=== PATIENT | female | born 1955 | race Caucasian/White ===

== ENCOUNTER 2023-07-26 08:35 | Outpatient (REF) | payer MEDICARE, SELFPAY ==
--- NOTE | ~2023-07-26 | XR_ITS ---
EXAMINATION: XR KNEE, RIGHT CLINICAL INFORMATION: Pain in the right knee COMPARISON: None available. TECHNIQUE: Four views of the right knee. FINDINGS: There is narrowing of medial compartment of right knee joint with marginal spurring seen mostly medially. There is chondrocalcinosis seen. There is no joint effusion. Patellofemoral compartments revealed degenerative changes medially and laterally. XR/XR knee RT 3V IMPRESSION: CPPD arthropathy
== END 2023-07-26 08:36 | disposition home or self-care (01) ==
LOC: HO.HOSX 08:35
PROVIDERS: Visit Provider Orthopaedic Surgery
DX: M25.561 Pain in right knee (principal)
CPT/HCPCS: 73562; 99202

== ENCOUNTER 2023-07-26 08:40 | Outpatient (AMB) | payer MEDICARE, MEDICAID, SELFPAY ==
--- NOTE | 2023-07-26 08:41 | A.OFFVIS_ITS ---
Vital Signs 07/26/23 09:06 Height 5 ft 2 in Weight 252 lb BMI 46.1 Intake Visit Reasons: New Pt - Right Knee Pain Intake Note: Kiya is a 65 year old female who presents as a new patient with Right knee pain. Patient reports her pain has been going on for about 2 months and is a 10 on the 1-10 pain scale and is using gabapentin and tylenol for the the pain with no relief. She denies injury, injections, and surgery. The patient states that most of the pain is along the medial aspect of her knee. The patient does not recall any similar discomfort prior to 2 months ago. Allergies No Known Allergies Allergy (Verified 07/26/23 09:08) PFSH Surgical History (Updated 07/26/23 @ 09:13 by Sun Samuel CMA) Hx of lumpectomy Hx of cholecystectomy Hx of section Social History (Updated 07/26/23 @ 09:14 by Sun Samuel CMA) Patient Tobacco Use Status: Never used Tobacco 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al status: unemployed 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 Physical Exam Vital Signs: BMI result Body Mass Index 46.1 Const Other: Well-nourished well-developed very friendly female awake alert and oriented x3 in no acute distress Extrem Other: Bilateral lower extremity examination shows good capillary refill, no skin lesions noted, normal sensation light touch Right knee examination shows a minimal effusion, minimal crepitus with range of motion, tenderness along her medial joint line, positive Stevan's test, no instability Results Reviewed Results Reviewed: Standing full weight-bearing x-rays of the patient's right knee show mild joint space narrowing most significant in the medial compartment, no acute bony abnormalities Assessment & Plan Assessment & Plan (1) Right knee pain: Code(s): M25.561 - Pain in right knee Category: Medical Plan Ms. Fragoso presents with right knee pain due to early degenerative joint disease as well as possible medial meniscus tearing. I had a lengthy discussion with the patient regarding the treatment options. She wishes to hold off on an injection for now. I did give her a prescription to go to formal physical therapy. Activity modifications were also discussed at length with the patient. She will contact me prior to her follow-up appointment in 2 months should any questions or concerns arise. Feel free to call me at any time should questions regarding her orthopedic management arise. Thank you very much for asking me to see this very friendly patient. I spent 22 minutes in reviewing the patient's records and imaging studies, see ing the patient and documenting in the medical record. Orders: Orders PT Evaluation and Treatment Today M25.561 - Pain in right knee Coding Level of Care Code New Pt Level 2 (57514) Diagnoses Right knee pain M25.561
[2023-07-26 09:06] VITALS: BMI 46.1
== END 2023-07-26 09:30 | disposition home or self-care (01) ==
PROVIDERS: PCP Nurse Practitioner Family; Referring Provider Nurse Practitioner Family; Visit Provider Orthopaedic Surgery
DX: M25.561 Pain in right knee (principal)
CPT/HCPCS: 99202

== ENCOUNTER 2024-05-23 13:51 | Outpatient (AMB) | payer MEDICARE, SELFPAY ==
[2024-05-23 14:15] VITALS: BMI 46.1
--- NOTE | 2024-05-23 14:15 | A.OFFVIS_ITS ---
Vital Signs 05/23/24 14:15 Height 5 ft 2 in Weight 252 lb BMI 46.1 Intake Visit Reasons: right knee pain Intake Note: Kiya is a 68 year old female who presents with complaints of progressively worsening right knee pain. She describes her pain as sharp and severe in nature. The patient states that she was given a cortisone injection last year by another provider. She got minimal relief from that injection. She wishes to hold off on surgery for as long as possible. She has failed the last 3 months of conservative treatment which has consisted of anti-inflammatory medicines, Tylenol and topical creams. She denies any locking or giving way. At this point her right knee pain is interfering with her activities of daily living and her ability to sleep well through the night. Allergies No Known Allergies Allergy (Verified 05/23/24 14:22) Medication List - Last Reconciled 05/23/24 by Sanya Arias MD albuterol sulfate 90 mcg/actuation inhalation cetirizine 10 mg PO DAILY famotidine 20 mg PO DAILY fluticasone furoate-vilanterol 100-25 mcg/dose (Breo Ellipta) 1 ea inhalation DAILY fluticasone furoate-vilanterol 200-25 mcg/dose (Breo Ellipta) 1 inh inhalation DAILY gabapentin 300 mg PO TID hydrochlorothiazide 25 mg PO DAILY lorazepam 0.5 mg PO BEDTIME PRN losartan 100 mg PO DAILY magnesium oxide 250 mg PO DAILY nirmatrelvir-ritonavir 150-100 mg (Paxlovid) 2 ea PO BID omeprazole 40 mg PO DAILY trazodone 150 mg PO BEDTIME PFSH Surgical History (Updated 07/26/23 @ 09:13 by Sun Samuel CMA) Hx of lumpectomy Hx of cholecystectomy Hx of section Social History (Updated 07/26/23 @ 09:14 by Sun Samuel CMA) Patient Tobacco Use Status: Never used Tobacco 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al status: unemployed 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 Physical Exam Vital Signs: BMI result Body Mass Index 46.1 Const Other: Well-nourished well-developed very friendly female awake alert and oriented x3 in no acute distress Extrem Other: Bilateral lower extremity examination shows good capillary refill, no skin lesions noted, normal sensation light touch right knee examination shows a minimal effusion, palpable crepitus with range of motion, pain with range of motion, range of motion from -3 degrees to 115 degrees, no instability Results Reviewed Results Reviewed: x-rays of the patient's right knee taken previously show joint space narrowing, subchondral sclerosis, no acute bony abnormalities Assessment & Plan Assessment & Plan (1) Osteoarthritis of right knee: Code(s): M17.11 - Unilateral primary osteoarthritis, right knee Category: Medical Plan Ms. Fragoso Presents with progressively worsening right knee pain due to osteoarthritis. I had a lengthy discussion with the patient regarding the tr eatment options. She wishes to hold off on surgery for as long as possible. I agree with this plan. She has had cortisone injections in the past which gave her minimal relief. Thus, I will see whether or not her insurance company will cover a viscosupplementation injection such as Durolane. I will see her back once the injection is available. Feel free to call me at any time should questions regarding her orthopedic management arise. I spent 22 minutes in reviewing the patient's records and imaging studies, seeing the patient and documenting in the medical record. Coding Level of Care Code Est Pt Level 3 (52774) Complex EM visit Add On G2211 Diagnoses Osteoarthritis of right knee M17.11
--- OUTSIDE RECORDS SUMMARY | 2024-05-23 17:01 | XMS_ITS | Encounter Summary ---
Author Organization [facility] Address [address] [place] [address] Phone Care Team Providers Care Inventory Coordinator Name Role Phone Callie Lawson Primary Care Provider [phone] Encounter Details Date Type Department Care Team (Late st Contact Info) Description 05/04/2024 Office Communication [facility] [address] [place] [place] [address] [place] [address] [place] [address] Social History Tobacco Use Types Packs/Day Years Used Date Smoking Tobacco: Never Assessed Comments Unknown Sex and Gender Information Value Date Recorded Sex Assigned at Not on file Legal Sex Female 11:30 AM EST Gender Identity Not on file Sexual Orientation Not on file documented as of this encounter Plan of Treatment Upcoming Encounters Date Type Department Care Team (Late st Contact Info) Description 05/24/2024 10:00 AM EST Office Visit [facility] [address] [phone] Yash Meza MD [address] [place] [phone] documented as of this encounter Visit Diagnoses Not on filedocumented in this encounter Care Teams Inventory Coordinator Relationship Specialty Start Date End Date Callie Lawson FNP [address] [place] [address] PCP - General Nurse Practitioner 05/02/24 documented as of this encounter
--- OUTSIDE RECORDS SUMMARY | 2024-05-23 17:01 | XMS_ITS | Encounter Summary ---
Author Organization [employer] Address [address] [facility] 7t [place] [address] Care Team Providers Care Oil Sprayer Name Role Phone Callie Lawson Primary Care Provider [phone] Encounter Details Date Type Department Care Team ([facility] Contact Info) Description 10/19/2023 Telephone [facility] [address] [place] [phone] Callie Lawson FNP [address] [place] [address] Social History Tobacco Use Types Packs/Day Years Used Date Smoking Tobacco: Former Cigarettes Passive Smoke Exposure: Past Smokeless Tobacco: Never Alcohol Use Standard Drinks/Week Comments Never 0 (1 standard drink = 0.6 oz pur e alcohol) PHQ-2 Answer Date Recorded Patient Health Questionnaire-2 Score 0 07/21/2022 Alcohol Answer Date Recorded How often do you have a drink containing alcohol ? 0 09/23/2023 How many drinks containing a lcohol do you have on a typical day when you are drinking? 0 09/23/2023 How often do you have six or more drinks on one occasion? 0 09/23/2023 Housing Stability Answer Date Recorded What is your housing situation today? I have simba lebron 08/15/[address] you li ve. Do you have problems with any of the following? None of the above 08/15/2023 Food Insecurity Answer Date Recorded Within the past 12 months, y ou worried that your food would run out before you got money to buy more: Never True 08/15/2023 Within the past 12 months,th e food you bought just didn't last and you didn't have enough money to get more: Never True Transportation Answer Date Recorded In the past 12 months, has l ack of transportation kept you from medical appts, meetings, work or from getting things needed for daily living? No 08/15/2023 Intimate Partner Violence Answer Date R ecorded Within the last year, have y ou been afraid of your partner or ex-partner? 2 09/23/2023 Within the last year, have y ou been humiliated or emotionally abused in other ways by your partner or ex-partner? 2 Within the last year, have y ou been kicked, hit, slapped, or otherwise physically hurt by your partner or ex-partner? 2 09/23/2023 Within the last year, have y ou been raped or forced to have any kind of sexual activity by your partner or ex-partner? 2 09/23/2023 Utilities Answer Date Recorded In the past 12 months, has t he [employer], gas, oil or water company threatened to shut off services in your home? No 08/15/2023 Depression Answer Date Recorded Patient Health Questionnaire-2 Score 0 08/15/2023 Comments Unknown Sex and Gender Information Value Date Recorded Sex Assigned at Female 04/14/2022 2:09 PM EST Legal Sex Female 2:07 PM EST Gender Identity Female 04/14/2022 2:09 PM EST Sexual Orientation Straight 04/14/2022 2: 09 PM EST documented as of this encounter Miscellaneous Notes * Telephone Encounter - Radha Celaya - 10/20/2023 3:10 PM EDT Processed new order * Telephone Encounter - Rosalva Mccullough - 10/19/2023 2:00 PM EDT Please resubmit the order for physical therapy as it is expiring. Please use today's date. Fax # [phone] Order was for physical therapy for balance problems. documented in this encounter Plan of Treatment Not on file documented as of this encounter Visit Diagnoses Not on filedocumented in this encounter Care Teams Oil Sprayer Relationship Specialty Start Date End Date Callie Lawson FNP [address] [place] [phone] PCP - General Family Medicine 10/14/22 documented as of this encounter
--- OUTSIDE RECORDS SUMMARY | 2024-05-23 17:01 | XMS_ITS | Encounter Summary ---
Author Organization [employer] Address [address] [facility] 7t [place] [address] Care Team Providers Care Retail Sales Assistant Name Role Phone Callie Lawson Primary Care Provider [phone] Farrah Jackman Unavailable Encounter Details Date Type Department Care Team ([facility] Contact Info) Description 12/24/2022 Orders Only [facility] [address] [place] [phone] Callie Lawson FNP [address] [place] [address] Abnormal renal function finding (Primary Dx) Social History Tobacco Use Types Packs/Day Years Used Date Smoking Tobacco: Former Cigarettes Passive Smoke Exposure: Past Smokeless Tobacco: Never Alcohol Use Standard Drinks/Week Comments Never 0 (1 standard drink = 0.6 oz pur e alcohol) PHQ-2 Answer Date Recorded Patient Health Questionnaire-2 Score 0 07/21/2022 Depression Answer Date Recorded Patient Health Questionnaire-2 Score 0 07/21/2022 Comments Unknown Sex and Gender Information Value Date Recorded Sex Assigned at Female 04/14/2022 2:09 PM EST Legal Sex Female 2:07 PM EST Gender Identity Female 04/14/2022 2:09 PM EST Sexual Orientation Straight 04/14/2022 2: 09 PM EST documented as of this encounter Plan of Treatment Not on file documented as of this encounter Visit Diagnoses Diagnosis Abnormal renal function finding- Primary documented in this encounter Care Teams Retail Sales Assistant Relationship Specialty Start Date End Date Callie Lawson FNP [address] [place] [id number] PCP - General Family Medicine 10/14/22 Farrah Jackman [facility] [address] 01/27/23 10/11/23 documented as of this encounter
--- OUTSIDE RECORDS SUMMARY | 2024-05-23 17:01 | XMS_ITS | Encounter Summary ---
Author Organization [employer] Address [address] [facility] 7t [place] [address] Care Team Providers Care Outside Sales Consultant Name Role Phone Callie Lawson Primary Care Provider [phone] Farrah Jackman Unavailable Reason for Visit * Reason Comments Med Refill Encounter Details Date Type Department Care Team ([facility] st Contact Info) Description 01/08/[address] [place] [address] Callie Lawson FNP [address] [place] [address] Social History Tobacco Use Types Packs/Day Years Used Date Smoking Tobacco: Former Cigarettes Passive Smoke Exposure: Past Smokeless Tobacco: Never Alcohol Use Standard Drinks/Week Comments Never 0 (1 standard drink = 0.6 oz pur e alcohol) PHQ-2 Answer Date Recorded Patient Health Questionnaire-2 Score 0 07/21/2022 Housing Stability Answer Date Recorded What is your housing situation today? I have simba lebron 01/10/[address] you li ve. Do you have problems with any of the following? None of the above 01/10/2023 Food Insecurity Answer Date Recorded Within the past 12 months, y ou worried that your food would run out before you got money to buy more: Never True 01/10/2023 Within the past 12 months,th e food you bought just didn't last and you didn't have enough money to get more: Never True Transportation Answer Date Recorded In the past 12 months, has l ack of transportation kept you from medical appts, meetings, work or from getting things needed for daily living? No 01/10/2023 Utilities Answer Date Recorded In the past 12 months, has t he electric, gas, oil or water company threatened to shut off services in your home? No 01/10/2023 Depression Answer Date Recorded Patient Health Questionnaire-2 Score 0 07/21/2022 Comments Unknown Sex and Gender Information Value Date Recorded Sex Assigned at Female 04/14/2022 2:09 PM EST Legal Sex Female 2:07 PM EST Gender Identity Female 04/14/2022 2:09 PM EST Sexual Orientation Straight 04/14/2022 2: 09 PM EST documented as of this encounter Miscellaneous Notes * Telephone Encounter - Ajay Bonilla - 01/10/2023 8:47 AM EDT Pended. documented in this encounter Plan of Treatment Not on file documented as of this encounter Visit Diagnoses Not on filedocumented in this encounter Care Teams Outside Sales Consultant Relationship Specialty Start Date End Date Callie Lawson FNP [address] [place] [address] PCP - General Family Medicine 10/14/22 Farrah Jackman [address] [place] [address] 01/27/23 10/11/23 documented as of this encounter
--- OUTSIDE RECORDS SUMMARY | 2024-05-23 17:01 | XMS_ITS | Clinical Summary ---
Author Organization [facility] Address [address] [place] [address] Care Team Providers Care Dictating Machine Transcriber Name Role Phone Unknown Primary Care Provider [phone] Social History Tobacco Use Types Packs/Day Years Used Date Smoking Tobacco: Never Assessed Sex and Gender Information Value Date Recorded Sex Assigned at Not on file Gender Identity Not on file Sexual Orientation Not on file Plan of Treatment Health Maintenance Due Date Last Done Comments Hepatitis C Virus Screening 1955 DTaP/Tdap/Td Vaccines (1 - Tdap) 11/18/1974 Mammogram 1995 Colonoscopy 11/18/2000 Pneumococcal Vaccines 50+ (1 of 1 - PCV) 11/18/2005 Zoster (Shingles) Vaccine (1 of 2) 11/18/2005 DXA Bone Density (Females,Ag es 65 and older) 11/18/2020 Influenza Vaccine 10/27/2023 COVID-19 Vaccine ( - 2023-2 5 season) 2023 RSV Vaccine 60 years and old er and Patients (1 - 1-dose 75+ series) 11/18/2030 Hepatitis B Vaccines Aged Out No long er eligible based on patient's age to complete this topic Care Teams Dictating Machine Transcriber Relationship Specialty Start Date End Date Unknown Unknow Provider Address PCP - General 07/27/20
--- OUTSIDE RECORDS SUMMARY | 2024-05-23 17:01 | XMS_ITS | Encounter Summary ---
Author Organization [employer] Address [address] [facility] 7t [place] [address] Care Team Providers Care Otolaryngology Teacher Name Role Phone Callie Lawson Primary Care Provider [phone] Encounter Details Date Type Department Care Team ([facility] Contact Info) Description 11/07/[address] [facility] [address] [place] [phone] Callie Lawson FNP [address] [place] [address] Social History Tobacco Use Types Packs/Day Years [...] encounter Miscellaneous Notes * Telephone Encounter - Rowan Perez - 11/17/2023 12:10 PM EDT Apt rescheduled * Telephone Encounter - Alena Bonilla - 11/09/2023 3:41 PM EDT Called pt, no answer, lm to cb. * Telephone Encounter - Selina Mendez - 11/09/2023 9:10 AM EDT This was re routed to diabetes ed. For Katey Lyons as they do sched. For her and pt needed to have appt R/S. * Telephone Encounter - Selina Mendez - 11/07/2023 2:58 PM EDT Pt Cancelled and NDS to R?S . Please reach out to the pt @ #[phone] documented in this encounter Plan of Treatment Not on file documented as of this encounter Visit Diagnoses Not on filedocumented in this encounter Care Teams Otolaryngology Teacher Relationship Specialty Start Date End Date Callie Lawson FNP [address] [place] [id number] PCP - General Family Medicine 10/14/22 documented as of this encounter"
--- OUTSIDE RECORDS SUMMARY | 2024-05-23 17:01 | XMS_ITS | Clinical Summary ---
Author Organization [facility], Address [address] [place] [phone] Phone Care Team Providers Care Humane Agent Name Role Phone Callie Lawson JENNI Primary Care Provider [phone] Allergies Active Allergy Reactions Criticality Noted Date Comments Pollen Extract 06/22/2022 Medications Cetirizine HCl 10 MG capsule Take by oral route. Active famotidine (PEPCID) 20 MG tablet Take 20 mg by mouth in the morning. 08/15/2023 Active gabapentin (NEURONTIN) 300 MG capsule Take 1 capsule 3 times a day by oral route. Active hydroCHLOROthia zide 25 MG tablet 05/19/2022 Active LORazepam (ATIVAN) 0.5 MG tablet TAKE 1 TABLET(0.5 MG) BY MOUTH EVERY 8 HOURS NEEDED FOR ANXIETY 03/16/2024 Active losartan (COZAAR) 100 MG tablet Take 100 mg by mouth in the morning. 08/15/2023 Active Magnesium 250 MG tablet Take 250 mg by mouth in the morning. 01/12/2024 Active omeprazole (PriLOSEC) [address] capsule Take 40 mg by mouth 01/12/2024 Active predniSONE (DELTASONE) 20 MG tablet Active traZODone (DESYREL) 150 MG tablet TAKE 1 TABLET(150 MG) BY MOUTH AT BEDTIME 08/15/2023 Active Active Problems Problem Noted Date Diagnosed Date Stage 3b chronic kidney disease 05/23/2024 Hypertension 06/22/2022 Resolved Problems Problem Noted Date Diagnosed Date Resolved Date Exacerbation of moderate persistent asthma 03/05/2024 05/23/2024 Overview (05/23/2024): Established with Dr. Adair, Pulmonology last evaluated on 03/02/23 PFT 11/12/20: Moderate ventilatory defect, without obstruction. The vital capacity is reduced, probably due to a restrictive process. No significant response to bronchodilator. Moderate restrictive defect. The diffusing capacity is severely reduced, although not adjusted for hemoglobin. The finding of restriction, high flows relative to VC, with low DLCO is consistent with interstitial lung disease. Recommend check rest and walking O2 saturations as hypoxia can occur with DLCO this low. Recommend check hemoglobin to allow better estimation of predicted DLCO. CXR 02/19/23: IMPRESSION: Linear atelectasis versus scarring in the left lung apex. Osteoarthritis 01/20/2024 05/23/2024 Numbness of hand 12/29/2022 05/23/2024 Overview (05/23/2024): Neurology referral in place. Anxiety 06/22/2022 05/23/2024 Encounters Date Type Department Care Team Description 05/04/2024 Office Communication [facility] [address] [place] [address] Dawna Bedolla MA 05/02/2024 Documentation Only [facility] [address] [place] [address] Dawna Bedolla MA from Last 3 Months Immunizations Name Administration Dates Next Due Influenza (IM) Preservative Free 12/29/2023,01/26 Influenza, Quadrivalent, Pre servative Free 01/02/2020,01/05/2019,12/13/2017,02/02,12/04/2015,12/03/2014 Pneumococcal Polysaccharide 02/06/2021 Shingrix 05/24/2019,10/20/2018,03/30/2018 Tdap 03/05/2014 Zoster, Unspecified 05/24/2019 Social History Tobacco Use Types Packs/Day Years Used Date Smoking Tobacco: Never Assessed Comments Unknown Sex and Gender Information Value Date Recorded Sex Assigned at Not on file Legal Sex Female 11:30 AM EST Gender Identity Not on file Sexual Orientation Not on file Plan of Treatment Upcoming Encounters Date Type Department Care Team (Late st Contact Info) Description 05/24/2024 10:00 AM EST Office Visit [facility] [address] [place] [phone] Yash Meza MD [address] [place] [phone] Health Maintenance Due Date Last Done Comments Breast Cancer Screening 1955 Colorectal Cancer Screening: Annual FOBT 11/18/2004 Colorectal Cancer Screening: Colonoscopy 11/18/2004 Colorectal Cancer Screening: Sigmoidoscopy 11/18/2004 Pneumococcal Vaccine: 65+ Years (2 of 2 - PCV) 02/06/2022 02/06/2021 Influenza Vaccine Completed 12/29/2023, , 01/05/2019, Additional history exists Hepatitis B Vaccine Aged Out No longe r eligible based on patient's age to complete this topic Insurance [employer] MEDICAID [place] Care Teams Humane Agent Relationship Specialty Start Date End Date Callie Lawson FNP [address] [place] [address] PCP - General Nurse Practitioner 05/02/24
--- OUTSIDE RECORDS SUMMARY | 2024-05-23 17:01 | XMS_ITS | Encounter Summary ---
Author Organization [employer] Address [address] [place] [address] Care Team Providers Care [facility] Name Role Phone Callie Lawson JENNI Primary Care Provider Farrah Jackman Unavailable Encounter Details Date Type Department Care Team ([facility] Contact Info) Description 09/28/2023 Orders Only [facility] Information Management [address], [place] [id number] Provider, Not In System Social History Tobacco Use Types Packs/Day Years [...] on file documented as of this encounter Procedures Procedure Name Priority Date/Time Associated Diagnosis Comments CTA CHEST WITH CONTRAST; CT SCAN OF THE ABDOMEN AND PELVIS WITH IV Routine 09/21/2023 2:30 PM EDT documented in this encounter Results * CTA CHEST WITH CONTRAST; CT SCAN OF THE ABDOMEN AND PELVIS WITH IV (09/21/2023 2:30 PM EDT) Anatomical Region Laterality Modality Body, Pelvis, Abdomen Computed T omography us Not In System Provider IMG CT PROCEDURES Final R esult documented in this encounter Visit Diagnoses Not on filedocumented in this encounter Care Teams [facility] Relationship Specialty Start Date End Date Callie Lawson FNP [address] [place] [id number] PCP - General Family Medicine 10/14/22 Farrah Jackman [address] [place] [address] 01/27/23 10/11/23 documented as of this encounter
--- OUTSIDE RECORDS SUMMARY | 2024-05-23 17:01 | XMS_ITS | Data Portability ---
Author Organization [facility] [employer], [place] Address [address] [place] [address] [place] [address] Care Team Providers Care Band Nailer Name Role Phone MARK WINTERS Referring Provider Unavailable CORRY AMATO Primary Care Provider Assessment Encounter Date Assessment Date Assessment LastModified by Organization Details LastModified Time 02/02/2023 02/02/2023 IMPRESSION: tingling in her extremities starting ~November 2022, at the same time as pain she has had in her extremities since after COVID began to worsen, with feeling of weakness and increased pain in her arms and legs with using them. Neurological exam reveals mild imbalance with stepping out with tandem gait. Gait imbalance is not her chief complaints although her daughter notes that sometimes her mother feels imbalance and tells her about it. I will monitor at this time and we can address it at another time. Neurological exam does not reveal any other abnormalities and in particular does not strengthen the possibility of neuropathy, the chief diagnosis from the neurological point of view that could relate to her tingling. Small fiber neuropathy remains in the differential. There is tenderness at multiple joints including shoulders elbows and knees but not in hands or feet. There is also tenderness away from the joints in the calves which might be muscular but might relate to edema. I will get some blood work for causes of small fiber neuropathy and for muscle pain. I will not look for diabetes as I defer continued optimal monitoring for diabetes to primary care. She notes that she has been taking magnesium at the suggestion of primary care which may make the pain in her body a little softer. I will check magnesium in any case. At the end of the encounter, her daughter says that she is concerned about episodes where her mother seems to stare . I asked her to say her name loudly, ask if something is wrong, and grab her by the shoulder and gently shake her to see what happens then. She understands. FRANSISCO Fragoso February 02, 2023 Laboratories: Sedimentation rate, calcium, phosphorus, magnesium, red blood cell magnesium, ferritin TSH, free T4, PTH, vitamin D, Lyme titer, Sjogren's antibodies, vitamin B12 studies, vitamin B6, CRP Follow-up afterwards thiago Not available 02/02/2023 10:19:54 02/21/2023 02/21/2023 IMPRESSION: tingling in her extremities starting ~November 2022, at the same time as pain she has had in her extremities since after COVID began to worsen, with feeling of weakness and increased pain in her arms and legs with using them. Neurological exam February 02, 2023 reveals mild imbalance with stepping out with tandem gait. Gait imbalance is not her chief complaints although her daughter notes that sometimes her mother feels imbalance and tells her about it. I will monitor at this time and we can address it at another time. >>>>>>>>>>>>DATA REVIEWED LABORATORIES February 04, 2023 :magnesium red blood cell 4.2, magnesium 1.8, vitamin B12 409, folate 12.1, homocystine high 18.7, MMA 304, vitamin B6 3.1, low, Lyme titer negative, Sjogren's antibodies negative, sedimentation rate 41, high, CRP 0.9 high, vitamin D 29.2, PTH 79, high; TSH 2.45, free T4 1.29, ferritin 95, testosterone 15, phosphorus 2.2 low, vitamin B6 3.1 moderately low [3.4, 65.2], >>>>>>>>>>>>>> There are multiple mild to moderate abnormalities that could relate to tingling. Among them, mildly low vitamin B6 is the only one that would specifically correlate with the possibility of neuropathy. I defer to primary care for dietary adjustment or supplementation that might be indicated. Another may directly correlate with tingling including high PTH. As vitamin D is normal or at worst borderline mildly low, I do not suspect the high PTH relates to emerging vitamin D deficiency. I defer to primary care for parathyroid or other abnormality that might relate. Others have at most indirect correlation, as follows: Sedimentation rate and CRP are moderately high. I do not suspect any neurological focus of inflammation that would account for this. Therefore I defer to primary care on these abnormalities. Homocystine is mildly high. In the context of otherwise normal markers for B12 deficiency, I do not suspect B12 deficiency. I therefore did defer to primary care for any further assessment indicated from the cardiovascular perspective or other systemic perspective. >>>>>>>>>>>>>>>Julito [email or web address] Neurological exam has not revealed any abnormalities in particular to strengthen the possibility of neuropathy, the chief diagnosis from the neurological point of view that could relate to her tingling. As Neuropathy is only suggested by the mildly low B6, (and I continue to defer to primary care for continued optimal monitoring for diabetes), the only indication is to work with primary care on addressing that. I do not believe further diagnostic investigation such as skin biopsy we will nerve conduction studies is indicated at this point. February 02, 2023 There is tenderness at multiple joints including shoulders elbows and knees but not in hands or feet. There is also tenderness away from the joints in the calves which might be muscular but might relate to edema or the high estr/crp. February 02, 2023 At the end of the encounter, her daughter says that she is concerned about episodes where her mother seems to stare . I asked her to say her name loudly, ask if something is wrong, and grab her by the shoulder and gently shake her to see what happens then. She understands. PLAN Kiya Fragoso February 21, 2023 Follow-up with primary care to address blood work abnormalities, some of which might relate to your tingling. Follow-up With me for neurological evaluation as needed, especially if tingling continues after the blood work abnormalities are addressed. thiago Not available 02/21/2023 12:35:59 Plan of Treatment Reminders Order Date Submit Date Provider Last Modified By Organization Details Last Modified Time Details Appointments None recorded. Lab ESR (erythrocyt e sedimentati on rate), blood - R70.0 2022 023 Adsame [facility] (Centralized Electronic Ordering - All Locations), Patient Can Go To The Location Of Their Choice, [id number] 08:09:47 calcium, serum or plasma - E83.50 2022 023 Adsame [facility] (Centralized Electronic Ordering - All Locations), Patient Can Go To The Location Of Their Choice, 19:45:10 phosphorus, serum or plasma - E86.39 2022 023 JENNYFER [facility] (Centralized Electronic Ordering - All Locations), Patient Can Go To The Location Of Their Choice, 19:45:13 magnesium, serum or plasma - E61.2 2022 023 JENNYFER [facility] (Centralized Electronic Ordering - All Locations), Patient Can Go To The Location Of Their Choice, 19:45:14 magnesium, RBC - E61.2 2022 023 JENNYFER [facility] (Centralized Electronic Ordering - All Locations), Patient Can Go To The Location Of Their Choice, 21:05:42 ferritin, serum or plasma - R79.89 2022 023 JENNYFER [facility] (Centralized Electronic Ordering - All Locations), Patient Can Go To The Location Of Their Choice, 20:42:07 TSH, serum or plasma - E07.9 2022 023 JENNYFER [facility] (Centralized Electronic Ordering - All Locations), Patient Can Go To The Location Of Their Choice, 20:42:09 T4, free, serum - E07.9 2022 023 JENNYFER [facility] (Centralized Electronic Ordering - All Locations), Patient Can Go To The Location Of Their Choice, 20:42:08 PTH (parathyroi d hormone), intact, serum or plasma - E21.5 2022 023 JENNYFER [facility] (Centralized Electronic Ordering - All Locations), Patient Can Go To The Location Of Their Choice, 19:27:57 vitamin D, 25-hydroxy, total, serum - E55.9 2022 023 JENNYFER [facility] (Centralized Electronic Ordering - All Locations), Patient Can Go To The Location Of Their Choice, 3 20:42:10 lyme antibody screen, EIA/ollie, serum - A69.20 2022 023 [facility] - [facility] Locations), Patient Can Go To The Location Of Their Choice, 3 12:10:22 C-reactive protein, quantitativ e, serum or plasma - R79.82 2022 023 [facility] Patient Can Go To The Location Of Their Choice, 19:45:12 CK (creatine kinase), total, serum - R74.8 2022 023 [facility]), Patient Can Go To The Location Of Their Choice, 19:45:11 selenium, serum or plasma - E59 2022 023 [facility] ([facility] - All Locations), Patient Can Go To The Location Of Their Choice, 12:10:22 testosteron e, total, serum - Z13.29 2022 023 [facility]), Patient Can Go To The Location Of Their Choice, 20:42:04 vitamin B6 (pyridoxine ), plasma - E67.2 2022 023 [facility]), Patient Can Go To The Location Of Their Choice, 3 16:07:37 homocystein e, serum or plasma - D51.9 2022 023 [facility]), Patient Can Go To The Location Of Their Choice, 3 19:12:18 mma (methylmalo skip acid), serum - D51.9 2022 023 [facility]), Patient Can Go To The Location Of Their Choice, 17:06:12 vitamin B12, serum - d51.9 2022 023 JENNY[facility] (Centralized Electronic Ordering - All Locations), Patient Can Go To The Location Of Their Choice, 20:42:06 folate, serum - d51.9 2022 023 [facility] (Centralized Electronic Ordering - All Locations), Patient Can Go To The Location Of Their Choice, 20:42:08 sjogren antibody panel (ssa, ssb, ro, la), serum 2022 023 JENNYFER [facility] (Centralized Electronic Ordering - All Locations), Patient Can Go To The Location Of Their Choice, 12:06:35 Referral None recorded. Procedures None recorded. Surgeries None recorded. Imaging None recorded. Medication Orders None recorded. Patient TargetsNo targets recorded. Patient Instructions Encounter Date Encounter Id Patient Instructions Last Modified By Organization Details Last Modified Time 02/02/2023 [id number] Discussion acros s issues of diagnoses and management and same day associated chart review and management greater than 50% greater than 60 minutes mrossen Not available 02/02/2023 10:17:50 02/21/2023 [id number] Discussion acros s issues of diagnoses and management and same day associated chart review and management greater than 50% greater than 30 minutes mrossen Not available 02/21/2023 12:35:53 Reason for Referral None Reported. Results Created Date Observation Date Name Description Value Unit Range Abnormal Flag Note LastModifiedBy Organization Detail LastModifiedTime 02/05/2002/04/2023 HOMOC YSTEI NE, PLASM A homocysteine , plasma 18.7 umol/ L (0-15) high Not Available [facility] (Centralized Electronic Ordering - All Locations) Patient Can Go To The Location Of Their Choice, [id number] 02/04/2023 19:12:18 02/05/2002/04/2023 PTH, INTAC T PTH, intact 79 pg/mL (15-65 ) high Not Available [facility] (Centralized Electronic Ordering - All Locations) Patient Can Go To The Location Of Their Choice, [id number] 02/04/2023 19:27:51 02/05/2002/04/2023 CALCI UM calcium 9.9 mg/dL (8.6-1 0.5) Not Available [facility] (Centralized Electronic Ordering - All Locations) Patient Can Go To The Location Of Their Choice, 02/04/2023 19:45:10 02/05/2002/04/2023 CK (CREA RICK KINAS E) CK (creatine kinase) 188 U/L (0-190 ) Not Available [facility] (Centralized Electronic Ordering - All Locations) Patient Can Go To The Location Of Their Choice, 02/04/2023 19:45:11 02/05/2002/04/2023 C-BUSHRA CTIVE PROTE IN C-reactive protein 0.9 mg/dL (0-0.5 ) high Not Available [facility] (Centralized Electronic Ordering - All Locations) Patient Can Go To The Location Of Their Choice, 02/04/2023 19:45:12 02/05/2002/04/2023 PHOSP HORUS phosphorus 2.2 mg/dL (2.5-4 .5) low Not Available [facility] (Centralized Electronic Ordering - All Locations) Patient Can Go To The Location Of Their Choice, 02/04/2023 19:45:13 02/05/2002/04/2023 MAGNE SIUM magnesium 1.8 mg/dL (1.6-2 .3) Not Available [facility] (Centralized Electronic Ordering - All Locations) Patient Can Go To The Location Of Their Choice, 02/04/2023 19:45:14 02/05/2002/04/2023 CKMB CONFI RMATI ON/QU ANT CKMB confirmation /quant 1.4 NG/mL (0-6) Not Available [facility] ([facility] Order[facility] - All Locations) Patient Can Go To The Location Of Their Choice, 02/04/2023 20:14:23 02/05/2002/04/2023 TESTO STERO NE testosterone 15 NG/dL (6-82) Total testo stero ne is measu red by immun oassa y. This assay does not provi de the sensi tivit y and speci ficit y requi red for the asses sment of the low testo stero ne level s found in women , child audie, adole scent s, and hypog onada l men. Consi marjorie Testo stero ne, Total (Fema les) or Testo stero ne, Total (<16 yrs) tests perfo rmed by mass spect romet ry based metho d. Not Available [facility] (Centralized Electronic Ordering - All Locations) Patient Can Go To The Location Of Their Choice, 02/04/2023 20:42:04 02/05/2002/04/2023 VITAM IN B12 vitamin B12 409 pg/mL (232-1 245) Not Available [facility] (Centralized Electronic Ordering - All Locations) Patient Can Go To The Location Of Their Choice, 02/04/2023 20:42:06 02/05/2002/04/2023 LEONILA TIN ferritin 95 NG/mL (14-28 3) Not Available [facility] (Centralized Electronic Ordering - All Locations) Patient Can Go To The Location Of Their Choice, 02/04/2023 20:42:07 02/05/2002/04/2023 FOLIC ACID folic acid 12.1 NG/mL (4.8-3 7.3) Not Available [facility] (Centralized Electronic Ordering - All Locations) Patient Can Go To The Location Of Their Choice, 02/04/2023 20:42:07 02/05/2002/04/2023 FREE T4 free T4 1.29 NG/dL (0.70- 1.80) Not Available [facility] (Centralized Electronic Ordering - All Locations) Patient Can Go To The Location Of Their Choice, 02/04/2023 20:42:08 02/05/2002/04/2023 TSH TSH 2.45 uIU/m L (0.4-4 .2) Not Available [facility] (Centralized Electronic Ordering - All Locations) Patient Can Go To The Location Of Their Choice, 02/04/2023 20:42:09 02/05/2002/04/2023 25OH VITAM IN D 25OH vitamin D 29.2 NG/mL (20-50 ) Not Available [facility] (Centralized Electronic Ordering - All Locations) Patient Can Go To The Location Of Their Choice, 02/04/2023 20:42:10 02/05/2002/05/2023 SEDIM ENTAT ION RATE, AUTOM ATED sedimentatio n rate,automat ed 41 mm/HR (0-20) high Not Available [facility] ([facility] Order[facility] - All Locations) Patient Can Go To The Location Of Their Choice, 02/05/2023 08:09:44 02/05/2002/05/2023 SJOGR ENS ANTIB ODIES anti-ssa (RO) Ab <0.2 Refer ence range : 0.0 to 0.9 Unit: AI Not Available [facility] (Centralized Electronic Ordering - All Locations) Patient Can Go To The Location Of Their Choice, 02/05/2023 12:06:34 02/05/2002/05/2023 SJOGR ENS ANTIB ODIES anti-ssb (la) Ab <0.2 Refer ence range : 0.0 to 0.9 Unit: AI Test perfo rmed by [facility], [address] [place] [address] Not Available [facility] (Centralized Electronic Ordering - All Locations) Patient Can Go To The Location Of Their Choice, 02/05/2023 12:06:34 02/05/2002/06/2023 LYME AB W/REF OLGA lyme Ab w/reflex (neg) NEGAT MARLEY NO ANTIB JAKE TO BORRE LLIA BURGD ORFER I DETEC JERRICA. PATIE NTS IN EARLY STAGE S OF INFEC TION OR WHO WERE GIVEN EARLY ANTIB IOTIC TREAT MENT MAY NOT PRODU CE DETEC TABLE LEVEL S OF ANTIB JAKE. THESE PATIE NTS WOULD BENEF IT FROM REPEA T TESTI NG IN 2 TO 4 WEEKS . Testi ng perfo rmed by the [employer] ex 2200 multi plex flow immun oassa y syste m Not Available [facility] (Centralized Electronic Ordering - All Locations) Patient Can Go To The Location Of Their Choice, 02/06/2023 09:35:27 02/05/2002/10/2023 VITAM IN B6 vitamin B6 3.1 low Refer ence range : 3.4 to 65.2 Unit: ug/L (NOTE ) This test was devel oped and its perfo rmanc e delphine cteri stics deter mined by [employer]. It has not been clear ed or appro piotr by the Food and Drug Admin istra tion. Defic iency : <3.4 Mariah nal: 3.4 - 5.1 Adequ ate: >5.1 Test perfo rmed at [facility] , [address] [place] [address] Not Available [facility] (Centralized Electronic Ordering - All Locations) Patient Can Go To The Location Of Their Choice, [facility] 02/10/2023 16:07:37 02/05/2002/10/2023 METHY LMALO SKIP ACID, SERUM methylmaloni c acid, serum 304 Refer ence range : 0 to 378 Unit: nmol/ L (NOTE ) This test was devel oped and its perfo rmanc e delphine cteri stics deter mined by [facility]. It has not been clear ed or appro piotr by the Food and Drug Admin istra tion. [facility] , [address] [place] [address] Not Available [facility] (Centralized Electronic Ordering - All Locations) Patient Can Go To The Location Of Their Choice, [facility] 02/10/2023 17:06:12 02/05/2002/13/2023 MAGNE SIUM RBC magnesium, RBC 4.2 Refer ence range : 3.7 to 7.0 Unit: mg/dL (NOTE ) This test was devel oped and its perfo rmanc e delphine cteri stics deter mined by [facility]. It has not been clear ed or appro piotr by the Food and Drug Admin istra tion. Ple ase note refer ence inter chio brewster e Test perfo rmed at [facility] , [address] [place] [address] Not Available [facility] (Centralized Electronic Ordering - All Locations) Patient Can Go To The Location Of Their Choice, [facility] 02/13/2023 21:05:42 Result Notes None recorded. Medical Equipment None Reported. Allergies No known drug allergies Medications Name Sig Start Date Stop Date Status Note LastModified by Organization Details LastModified Time losartan 50 mg tablet Take 1 tablet every day by oral route. active Not Available Not Available No t Available cetirizine 10 mg tablet active Not Available Not Available No t Available prednisone 20 mg tablet active Not Available Not Available No t Available gabapentin 300 mg capsule Take 1 capsule 3 times a day by oral route. active Not Available Not Available No t Available hydrochlorothia zide 25 mg tablet active Not Available Not Available Not Available albuterol sulfate HFA 90 mcg/actuation aerosol inhaler active Not Available Not Availa ble Not Available azithromycin 500 mg tablet active Not Available Not Availabl e Not Available omeprazole active Not Available Not Av ailable Not Available lorazepam active Not Available Not Kylah ilable Not Available famotidine active Not Available Not Av ailable Not Available hydrochlorothia zide active Not Available Not Available Not Available trazodone active Not Available Not Kylah ilable Not Available cetirizine 10 mg capsule Take by oral route. active Not Available Not Available No t Available Breo Ellipta active Not Available Not Available Not Available Vitals Date Recorded Body height Body mass index (BMI) Body weight Respiratory rate Provider Name and Address Organization Details Last Updated DateTime 02/02/2023 154.94 cm 48.4 kg/m2 316407.6 5 g 12 /min [employer] 02/02/2023 08:51:22 Social History Question Answer Notes LastModified by Organizat ion Details LastModified Time Tobacco Smoking Status Never Smoker [facility] 02/02/2023 08:56:31 What Is Your Level Of Alcohol Consumption? None Information not available 02/02/2023 What Is Your Level Of Caffeine Consumption? Moderate 2 Information not available 02/02/2023 What Is The Highest Grade Or Level Of School You Have Completed Or The Highest Degree You Have Received? [id number] Information not available 02/02/2023 Which Of Your Hands Is Dominant? Left Information not available 02/02/2023 What Is Your Relationship Status? Information not available 02/02/2023 Sex: Unknown Functional Status None recorded. Mental Status None recorded. Family History Relationship Description Onset Age of this Age Resolved Age Notes LastModified by Organization Details LastModified Time Unspecified Relation Hypertensive disorder [email or web address] Not available 10/2022 08:55:53 Unspecified Relation Tremor [email or web address] Not available 10/2022 08:56:05 Medical History Condition Response High Blood Pressure or Hypertension Y Asthma Y Heartburn, acid reflux, GERD Y Gynecological HistoryNo gynecological history recorded. Obstetrics History GPAL:G 0 P 0 0 0 0 Past Encounters Encounter ID Performer Location Encounter Start Date Encounter Closed Date Diagnosis/Indication Diagnosis SNOMED-CT Code Diagnosis ICD10 Code Diagnosis Note [id number] Yash Castillo MD [facility] [address] [place] [address] [place] [address] 02/02/2023 08:38:31 02/02/2023 10:43:30 Idiopathic peripheral neuropathy 05752182 G60.3 [id number] Yash Castillo MD [facility] [address] [place] [address] [place] [address] 02/21/2023 11:18:04 02/21/2023 17:14:29 Idiopathic peripheral neuropathy 98151051 G60.3 Health Concerns Section Related Observation LastModified by Organization Detai ls LastModified Time None Recorded Concern Status LastModified by Organization Details LastModified Time None Recorded Advance Directives Directive None Recorded Payers Encounter Date Sequence Insurance Name Policy Number Policy [place] Covered Member ID [place] Member ID Guarantor Name 02/02/2023 1 [employer] (MEDICARE REPLACEMENT PPO) Kiya Fragoso [id number] Kiya Fragoso 02/21/2023 1 [employer] (MEDICARE REPLACEMENT PPO) Kiya Fragoso [id number] Kiya Fragoso Notes Date Note Type Note Provider Name and Address Organization Details Recorded Time 02/02/2023 text/html She presents for initial neurology consultation for assessment and management of tingling in her extremities starting ~November 2022, at the same time as pain she has had in her extremities since after COVID began to worsen, with feeling of weakness and increased pain in her arms and legs with using them. She is accompanied by her daughter, Yesenia Alex, also a patient of mine.Sometime in November 2022 she began getting tingling in her feet intermittently and throughout her arms and her hands continuously (although they are not tingling during the light touch portion of the exam). She had previously had pain throughout her arms and hands and from the knees to her feet since ~2020, about 2 years ago, emerging after a COVID infection.The tingling in her feet was just occasional at the beginning but has become frequent, about 50% of the time. In addition, foot tingling has extended over days/weeks to involve tingling from the knee down through the feet. The tingling feels like it is coming from the feet.She feels weak in her arms with lifting the and such lifting of her arms causes the baseline pain in her arms and hands to increase. If she uses her hands, she drops things. She also feels weakness in her lower extremities with using them.He has baseline back pain and neck pain for many years. It got worse after 2020 COVID infection and it has again gotten worse since the beginning of November 2022. He has a history of intermittent bladder incontinence. However, she has no new bladder dyscontrol. She had no injury in ~November 2022. She has had no significant emotional traumas recently that she can remember. The first most recent emotional trauma that comes to her mind is her mother passing ~3 years ago. Yash Castillo MD [address] [place] [address], [id number] 02/02/2023 10:20:00 02/21/2023 text/html Neurology follow -up of tingling in her extremities starting ~November 2022, at the same time as pain she has had in her extremities since after COVID began to worsen, with feeling of weakness and increased pain in her arms and legs with using them. She is accompanied by her daughter, Yesenia Alex, also a patient of mine. >>>>>>>>>>>>>>>>>>> February 21, 2023Since February 02, 2023 initial neurology consultation, her tingling continues unchanged. She has no new or changing symptomatology. >>>>>>>>>>>>>>>>>>>> >>>>>>> February 02, 2023 presenting symptomatology: Sometime in November 2022 she began getting tingling in her feet intermittently and throughout her arms and her hands continuously (although they are not tingling during the light touch portion of the exam). She had previously had pain throughout her arms and hands and from the knees to her feet since ~2020, about 2 years ago, emerging after a COVID infection.The tingling in her feet was just occasional at the beginning but has become frequent, about 50% of the time. In addition, foot tingling has extended over days/weeks to involve tingling from the knee down through the feet. The tingling feels like it is coming from the feet.She feels weak in her arms with lifting the and such lifting of her arms causes the baseline pain in her arms and hands to increase. If she uses her hands, she drops things. She also feels weakness in her lower extremities with using them.He has baseline back pain and neck pain for many years. It got worse after 2020 COVID infection and it has again gotten worse since the beginning of November 2022. He has a history of intermittent bladder incontinence. However, she has no new bladder dyscontrol. She had no injury in ~November 2022. She has had no significant emotional traumas recently that she can remember. The first most recent emotional trauma that comes to her mind is her mother passing ~3 years ago. Yash Castillo MD [address] [place] [address] [place], [phone], [facility] Neurology [facility] 02/21/2023 12:36:41 OBGyn Episode No OBEpisode recorded.
--- OUTSIDE RECORDS SUMMARY | 2024-05-23 17:02 | XMS_ITS | Encounter Summary ---
Author Organization [employer] Address [address] [facility] 7 [place] [address] Care Team Providers Care Sales Ledger Clerk Name Role Phone Callie Lawson Primary Care Provider [phone] Reason for Referral * Consultation (Routine) - Authorized Specialty Diagnoses / Procedures Referred By Contkit t Referred To Contact Diagnoses Stage 3 chronic kidney disease, unspecified whether stage 3a or 3b CKD (CMS/HCC) Callie Lawson FNP [address] [place] [address] Phone: tel: fax: Yash Meza [address] [place] [address] Phone: tel: fax: Referral ID Status Reason Start Date Expiration Date Visits Requested Visits Authorized [id number] Authorized Specialty Services Required 04/24/2024 04/24/2025 6 6 Encounter Details Date Type Department Care Team ([facility] st Contact Info) Description 04/23/2024 Orders Only [facility] [address] [place] [address] Callie Lawson FNP [address] [place] [address] Stage 3 chronic kidney disease, unspecified whether stage 3a or 3b CKD (CMS/HCC) (Primary Dx); Hypercalcemia Social History Tobacco Use Types Packs/Day Years [...] as of this encounter Plan of Treatment Scheduled Orders Name Type Priority Associated Diagnoses Orde r Schedule Calcium Lab Routine Hypercalcemia Expected: 04/23/2024 (Approximate), Expires: 04/23/2025 Scheduled Referrals Name Type Priority Associated Diagnoses Orde r Schedule Referral to Nephrology Outpatient Referral Routine Stage 3 chronic kidney disease, unspecified whether stage 3a or 3b CKD (CMS/HCC) Expected: 04/23/2024 (Approximate), Expires: 04/23/2025 documented as of this encounter Visit Diagnoses Diagnosis Stage 3 chronic kidney disease, unspecified whether stage 3a or 3b CKD (CMS/HCC)- Primary Hypercalcemia documented in this encounter Care Teams Sales Ledger Clerk Relationship Specialty Start Date End Date Callie Lawson FNP [address] [place] [phone] PCP - General Family Medicine 10/14/22 documented as of this encounter
--- OUTSIDE RECORDS SUMMARY | 2024-05-23 17:02 | XMS_ITS | Encounter Summary ---
Author Organization [employer] Address [address] [facility] 7t [place] [address] Care Team Providers Care Assembler Dry Cell And Battery Name Role Phone Callie Lawson Primary Care Provider Reason for Visit * Reason Comments Follow-up Knee pain/leg cramps for over a month. Only taken tylenol for the uncomfortable feelings. Refused weight Encounter Details Date Type Department Care Team ([facility] Contact Info) Description 04/20/2024 10:40 AM EST Office Visit [facility] [address] [place] [id number] Callie Lawson FNP [address] [place] [address] Prediabetes (Primary Dx); Neuropathy Social History Tobacco Use Types Packs/Day Years [...] PM EST documented as of this encounter Last Filed Vital Signs Vital Sign Reading Time Taken Comments Blood Pressure 127/75 04/20/2024 10:36 AM EST Pulse 81 04/20/2024 10:36 AM EST Temperature 36.1 ??C (97 ??F) 04/20/2024 10:36 AM EST Respiratory Rate - - Oxygen Saturation 96% 04/20/2024 10:36 AM EST Inhaled Oxygen Concentration - - Weight - - Height - - Body Mass Index - - documented in this encounter Progress Notes * JENNI Ortega - 04/20/2024 10:40 AM EST This visit documentation was prepared using voice-enabled artificial intelligence software (ambientclinical notes). Chief complaint Leg pain and sensitivity. they do note that more thirsty and urinating more often Exam; no open areas Sensation normal 1+ pulses History of present illness - Experiencing cramps in the legs, sensitive skin, and electric pain since post- COVID recovery. - Symptoms exacerbate periodically, with periods of relief. - Pain worsens when pressure is applied, such as wearing socks or touching sheets. - Limping on the right knee, with an orthopedic appointment scheduled for April. - No history of smoking, alcohol use, or blood clots. - Feels cold frequently, especially in the feet. - No numbness in hands. - Gabapentin was previously ordered to increase to 400 mg but was not received by the pharmacy. Past medical history - History of COVID-19 Social history - No smoking - No alcohol consumption Current medications - Gabapentin, up to 400 mg (not yet received by pharmacy) Physical exam - MUSCULOSKELETAL: Gait disturbance due to right knee. - SKIN: Cutaneous hypersensitivity on legs, no swelling observed. - EXTREMITIES: Peripheral cold sensation in feet, normal color, diminished pulse on one side. Assessment - Possible peripheral neuropathy exacerbated by cold weather, with symptoms of electric pain and sensitive skin. - Differential diagnosis includes potential circulation issues, though no definitive cause identified. - Consideration of diabetes as a potential underlying condition, pending lab results. Plan - Prescribe gabapentin 400 mg to address the patient's symptoms. Ensure the prescription is sent tot pharmacy. - Conduct comprehensive lab tests to evaluate cholesterol, A1C, liver function, kidney function, electrolytes, blood sugar, blood count, B12 levels, and uric acid. These tests will help in assessing the patient's overall health and identifying any underlying conditions. - Recommend the use of cayenne pepper ointment and magnesium oil spray for symptomatic relief of the patient's discomfort. Advise using gloves when applying cayenne pepper ointment to avoid irritation. - Suggest trying lidocaine ointment for additional pain relief. - Plan to follow up with the patient on Tuesday to discuss the results of the lab tests and adjust the treatment plan as necessary based on the findings. Prescription - Gabapentin 400 mg, dosage adjustment - Lidocaine ointment, for topical use Appointments - Appointment with orthopedic in April. ICD-10 codes (3) - Pain in leg, unspecified [M79.606] - Cramp and spasm [R25.2] - Paresthesia of skin [R20.2] Plan Lets ck labs Try cayenne pepper and lidocaine and tyl and will fu with lab call on Tuesday if needed. * Cathi Moscoso LPN - 04/20/2024 10:40 AM EST Patient aware of lab results and nephrology referral. documented in this encounter Plan of Treatment Not on file documented as of this encounter Procedures Procedure Name Priority Date/Time Associated Diagnosis Comments ALBUMIN, RANDOM URINE W/CREATININE Routine 04/20/2024 11:19 AM EST Prediabetes Neuropathy CBC Routine 04/20/2024 11:19 AM EST Prediabetes Neuropathy URIC ACID Routine 04/20/2024 11:19 AM EST Prediabetes Neuropathy HEMOGLOBIN A1C Routine 04/20/2024 11:19 AM EST Prediabetes Neuropathy VITAMIN B12 Routine 04/20/2024 11:19 AM EST Prediabetes Neuropathy LIPID PANEL, STANDARD Routine 04/20/2024 11:19 AM EST Prediabetes Neuropathy COMPREHENSIVE METABOLIC PANEL Routine 04/20/2024 11:19 AM EST Prediabetes Neuropathy documented in this encounter Results * Uric acid (04/20/2024 11:19 AM EST) Uric Acid 6.5 2.5 - 7.0 mg/dL [facility] Comment: Therapeutic target for gout patients: <6.0 mg/dL ?? Blood Venous blood specimen / Unknown 04/20/2024 11:19 AM EST 04/20/2024 11:19 AM EST Narrative [facility] - 04/21/2024 7:23 PM EST FASTING:NO FASTING: NO Callie Lawson [facility] LAB BLOOD ORDERABLES Final Resul t Performing Organization Address [facility] de Phone Number MONIK Topete [address], [place] [address] [facility] [place] [facility] [address] [place] [address] * Vitamin B12 (04/20/2024 11:19 AM EST) Vitamin B12 379 200 - 1,100 pg/mL [facility] [place] [facility] Comment: Please Note: Although the reference range for vitamin B12 is 200-1100 pg/mL, it has been reported that between 5 and 10% of patients with values between 200 and 400 pg/mL may experience neuropsychiatric and hematologic abnormalities due to occult B12 deficiency; less than 1% of patients with values above 400 pg/mL will have symptoms. Blood Venous blood specimen / Unknown 04/20/2024 11:19 AM EST 04/20/2024 11:19 AM EST Narrative [facility] - 04/21/2024 7:23 PM EST FASTING:NO FASTING: NO Callie Lawson [facility] LAB BLOOD ORDERABLES Final Resul t Performing Organization Address [facility] de Phone Number MONIK Topete [address], [facility] [place] [address] [facility] [place] [facility] [address] [place] [address] * Albumin, Random Urine W/Creatinine (04/20/2024 11:19 AM EST) Creatinine, Random Urine 96 20 - 275 mg/dL [facility] [place] [facility] Albumin, Urine <0.2 See Note: mg/dL [facility] [place] [facility] Comment: Reference Range: Reference Range Not established Albumin/Creatinin e Ratio, Random Urine NOTE <30 mg/g creat [facility] [place] [facility] Comment: NOTE: The urine albumin value is less than 0.2 mg/dL therefore we are unable to calculate excretion and/or creatinine ratio. The ADA defines abnormalities in albumin excretion as follows: Albuminuria Category ?Result (mg/g creatinine) Normal to Mildly increased ?? <30 Moderately increased ? 30-299 Severely increased ? > OR = 300 The ADA recommends that at least two of three specimens collected within a 3-6 month period be abnormal before considering a patient to be within a diagnostic category. Urine (Urine, Random) 04/20/2024 11:19 AM EST 04/20/2024 11:19 AM EST Narrative [facility] - 04/21/2024 7:23 PM EST FASTING:NO FASTING: NO Callie Lawson [facility] LAB URINE ORDERABLES Final Resul t [facility] [address], [place] [address] [facility] [place] [facility] [address] [place] [address] * (ABNORMAL) CBC (04/20/2024 11:19 AM EST) White Blood Cell Count 10.3 3.8 - 10.8 Thousand/ uL [facility] Red Blood Cell Count 4.83 3.80 - 5.10 Million/u L [facility] Hemoglobin 13.7 11.7 - 15.5 g/dL [employer] Hematocrit 43.5 35.0 - 45.0 % [facility] [place] [facility] MCV 90.1 80.0 - 100.0 fL [facility] [place] [facility] MCH 28.4 27.0 - 33.0 pg [facility] MCHC 31.5(L) 32.0 - 36.0 g/dL [facility] Comment: For adults, a slight decrease in the calculated MCHC value (in the range of 30 to 32 g/dL) is most likely not clinically significant; however, it should be interpreted with caution in correlation with other red cell parameters and the patient's clinical condition. RDW 12.6 11.0 - 15.0 % [facility] Platelet Count 274 140 - 400 Thousand/ uL [employer] MPV 10.3 7.5 - 12.5 fL [facility] [place] [facility] Blood Venous blood specimen / Unknown 04/20/2024 11:19 AM EST 04/20/2024 11:19 AM EST Narrative [facility] - 04/21/2024 7:23 PM EST FASTING:NO FASTING: NO us Callie Lawson [facility] LAB BLOOD ORDERABLES Final Resul t [facility] [address], [place] [address] [facility] [place] [facility] [address] [place] [address] * (ABNORMAL) Comprehensive Metabolic Panel (04/20/2024 11:19 AM EST) Glucose 88 65 - 139 mg/dL [facility] [place] [facility] Comment: ? Non-fasting reference interval Urea Nitrogen (BUN) 24 7 - 25 mg/dL [facility] [place] [facility] Creatinine, Serum 1.47(H) 0.50 - 1.05 mg/dL [facility] [place] [facility] eGFR 39(L) > OR = 60 mL/min/1. 73m2 [facility] [place] [facility] BUN/Creatinine Ratio 16 6 - 22 (calc) [facility] [place] [facility] Sodium 140 135 - 146 mmol/L [facility] [place] [facility] Potassium 4.3 3.5 - 5.3 mmol/L [facility] [place] [facility] Chloride 100 98 - 110 mmol/L [facility] [place] [facility] Carbon Dioxide 31 20 - 32 mmol/L [facility] [place] [facility] Calcium 10.5(H) 8.6 - 10.4 mg/dL [facility] [place] [facility] Protein, Total 7.4 6.1 - 8.1 g/dL [facility] Albumin 4.4 3.6 - 5.1 g/dL [facility] [place] [facility] Globulin 3.0 1.9 - 3.7 g/dL (calc) [facility] [place] [facility] Albumin/Globuli n Ratio 1.5 1.0 - 2.5 (calc) [facility] [place] [facility] Bilirubin, Total 0.4 0.2 - 1.2 mg/dL [facility] [place] [facility] Alkaline Phosphatase 77 37 - 153 U/L [facility] [place] [facility] AST 20 10 - 35 U/L [facility] [place] [facility] ALT 16 6 - 29 U/L [facility] [place] [facility] Blood Venous blood specimen / Unknown 04/20/2024 11:19 AM EST 04/20/2024 11:19 AM EST Narrative [facility] - 04/21/2024 7:23 PM EST FASTING:NO FASTING: NO Callie Lawson [facility] LAB BLOOD ORDERABLES Final Resul t [facility] [address], [place] [address] [facility] [place] [facility] [address] [place] [address] * Hemoglobin A1c (04/20/2024 11:19 AM EST) Hemoglobin A1c 5.4 <5.7 % of total Hgb [facility] [place] [facility] Comment: For the purpose of screening for the presence of diabetes: <5.7% ? Consistent with the absence of diabetes 5.7-6.4% ?Consistent with increased risk for diabetes ?(prediabetes) > or =6.5% ??Consistent with diabetes This assay result is consistent with a decreased risk of diabetes. Currently, no consensus exists regarding use of hemoglobin A1c for diagnosis of diabetes in children. According to [place] Diabetes Association (ADA) guidelines, hemoglobin A1c <7.0% represents optimal control in non- diabetic patients. Different metrics may apply to specific patient populations. Standards of Medical Care in Diabetes(ADA). ?? Blood Venous blood specimen / Unknown 04/20/2024 11:19 AM EST 04/20/2024 11:19 AM EST Narrative [facility] - 04/21/2024 7:23 PM EST FASTING:NO FASTING: NO Callie Lawson [facility] LAB BLOOD ORDERABLES Final Resul t Performing Organization Address [facility]/ZIP Co de Phone Number [facility] [address], [facility] [place] [address] [facility] [place] [facility] [address] [place] [address] * (ABNORMAL) Lipid Panel, Standard (04/20/2024 11:19 AM EST) Cholesterol, Total 210(H) <200 mg/dL [facility] [place] [facility] HDL Cholesterol 74 > OR = 50 mg/dL [facility] [place] [facility] Triglycerides 139 <150 mg/dL [facility] [place] [facility] LDL Cholesterol 111(H) mg/dL [facility] [place] [facility] Comment: Reference range: <100 Desirable range <100 mg/dL for primary prevention; ?? <70 mg/dL for patients with CHD or diabetic patients with > or = 2 CHD risk factors. LDL-C is now calculated using the Pipe-Zainab calculation, which is a validated novel method providing better accuracy than the Friedewald equation in the estimation of LDL-C. Pipe SS et al. DAINA. 2013;310(19): 8306-0998 (http://education.One to the World/faq/CMR692) Chol/HDLC Ratio 2.8 <5.0 (calc) [facility] [place] [facility] Non-HDL Cholesterol 136(H) <130 mg/dL [facility] [place] [facility] Comment: For patients with diabetes plus 1 major ASCVD risk factor, treating to a non-HDL-C goal of <100 mg/dL (LDL-C of <70 mg/dL) is considered a therapeutic option. Blood Venous blood specimen / Unknown 04/20/2024 11:19 AM EST 04/20/2024 11:19 AM EST Narrative [facility] - 04/21/2024 7:23 PM EST FASTING:NO FASTING: NO Callie Lawson [facility] LAB BLOOD ORDERABLES Final Resul t Performing Organization Address City/[facility]/ZIP Co de Phone Number [facility] [address], [place] [address] [facility] [place] [facility] [address] [place] [address] documented in this encounter Visit Diagnoses Diagnosis Prediabetes- Primary Other abnormal glucose Neuropathy Mononeuritis of unspecified site documented in this encounter Care Teams Assembler Dry Cell And Battery Relationship Specialty Start Date End Date Callie Lawson FNP [address] [place] [phone] PCP - General Family Medicine 10/14/22 documented as of this encounter
--- OUTSIDE RECORDS SUMMARY | 2024-05-23 17:02 | XMS_ITS | Encounter Summary ---
Author Organization [employer] Address [address] [facility] 7t [place] [address] Care Team Providers Care Insole Bottom Filler Name Role Phone Callie Lawson JENNI Primary Care Provider [phone] Farrah Jackman Unavailable Reason for Visit * Reason Comments Med Refill Encounter Details Date Type Department Care Team ([facility] st Contact Info) Description 10/14/2022 Refill [facility] [address] [facility] [address] [place] [address] Sushila Abrams FNP [address] [place] [address] Social History Tobacco Use Types Packs/Day Years [...] encounter Miscellaneous Notes * Telephone Encounter - Marli Cornejo MD - 10/14/2022 3:47 PM EDT dup * Telephone Encounter - India Sarabia - 10/14/2022 3:34 PM EDT Sent request to provider pool documented in this encounter Plan of Treatment Not on file documented as of this encounter Visit Diagnoses Not on filedocumented in this encounter Care Teams Insole Bottom Filler Relationship Specialty Start Date End Date Callie Lawson FNP [address] [place] [address] PCP - General Family Medicine 10/14/22 Farrah Jackman [address] [place] [address] 01/27/23 10/11/23 documented as of this encounter
--- OUTSIDE RECORDS SUMMARY | 2024-05-23 17:02 | XMS_ITS | Encounter Summary ---
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 She will let me know * Carla Boogie - 05/09/2024 9:30 AM EST Appt moved to 2pm on 05/23 Pickup time; 03/28:15pm documented in this encounter Plan of Treatment Not on file documented as of this encounter Visit Diagnoses Not on filedocumented in this encounter Care Teams Psychometrician Relationship Specialty Start Date End Date Callie Lawson FNP [address] [place] [address] PCP - General Family Medicine 10/14/22 documented as of this encounter
--- OUTSIDE RECORDS SUMMARY | 2024-05-23 17:02 | XMS_ITS | Encounter Summary ---
Author Organization [employer] Address [address] [facility] 7t [place] [address] Care Team Providers Care Preventive Medicine Physician Name Role Phone Callie Lawson Primary Care Provider [phone] Farrah Jackman Unavailable Encounter Details Date Type Department Care Team ([facility] st Contact Info) Description 07/13/2023 Telephone [facility] [address] [place] [address] Callie Lawson FNP [address] [place] [address] Social History Tobacco Use Types Packs/Day Years [...] encounter Miscellaneous Notes * Telephone Encounter - Mor Padilla - 07/13/2023 11:24 AM EDT Patient is requesting we send her referral to an director of orthopedics closer to her, she said she found one in [facility], she wasn't sure of the name, but their phone number is [phone] documented in this encounter Plan of Treatment Not on file documented as of this encounter Visit Diagnoses Not on filedocumented in this encounter Care Teams Preventive Medicine Physician Relationship Specialty Start Date End Date Callie Lawson FNP [address] [place] [address] PCP - General Family Medicine 10/14/22 [place] [address] 01/27/23 10/11/23 documented as of this encounter
--- OUTSIDE RECORDS SUMMARY | 2024-05-23 17:02 | XMS_ITS | Clinical Summary ---
Author Organization [employer] Address [address] [place] [address] Care Team Providers Care Landcare Officer Name Role Phone Callie Lawson JENNI Primary Care Provider [phone] Allergies Active Allergy Reactions Criticality Noted Date Comments Pollen Extract 06/22/2022 Medications Incontinence Supply Disposable (Comfort Protect Adult Diap XL) miscIndications: Mixed stress and urge urinary incontinence 1 each if needed in the morning, at noon, and at bedtime (For incontinence). 90 each 5 3 Active albuterol 108 (90 Base) MCG/ACT inhaler Inhale 2 puffs every 6 (six) hours if needed for wheezing. 18 g 4 Active cetirizine (ZyrTEC) 10 MG tablet Take 1 tablet (10 mg) by mouth Once per day. 90 tablet 3 4 Active famotidine (Pepcid) 20 MG tablet Take 1 tablet (20 mg) by mouth Once per day. 90 tablet 3 4 Active Fluticasone Furoate-Vilanter ol 100-25 MCG/ACT aerosol powderIndication s:Intermittent asthma without complication, unspecified asthma severity Inhale 1 Inhalation Once per day. 1 puff once a day 1 each 4 Active hydroCHLOROthiaz aldo (HYDRODiuril) 25 MG tablet Take 1 tablet (25 mg) by mouth Once per day. 90 tablet 3 4 Active losartan (Cozaar) 100 MG tablet Take 1 tablet (100 mg) by mouth Once per day. 90 tablet 3 4 Active Multiple Vitamin (Vitamin E/Folic Acid/B-6/B-12) capsule Take 1 capsule by mouth Once per day. 100 capsule 3 4 Active traZODone (Desyrel) 150 MG tablet TAKE 1 TABLET(150 MG) BY MOUTH AT BEDTIME 90 tablet 3 4 Active omeprazole (PriLOSEC) [address] capsule Take 1 capsule (40 mg) by mouth before breakfast. Do not crush or chew. 90 capsule 4 Active magnesium 250 MG tabletIndication s:Cramping of feet Take 1 tablet (250 mg) by mouth Once per day. 90 tablet 3 4 Active Respiratory Therapy Supplies (Nebulizer/Tubin g/Mouthpiece) kitIndications:D yspnea Use with prescribed medication. 1 kit 2 4 Active albuterol (2.5 MG/3ML) 0.083% nebulizer solutionIndicati ons:Moderate persistent asthma with exacerbation Take 3 mL (2.5 mg) by nebulization every 4 (four) hours if needed for wheezing for up to 2 days. 12 mL 1 4 Active LORazepam (Ativan) 0.5 MG tabletIndication s:Anxiety TAKE 1 TABLET(0.5 MG) BY MOUTH EVERY 8 HOURS NEEDED FOR ANXIETY 14 tablet 1 4 Active gabapentin (Neurontin) 400 MG capsule Take 1 capsule (400 mg) by mouth 3 times daily. 90 capsule 11 5 026 Active lidocaine (Xylocaine) 5 % ointmentIndicati ons:Neuropathy Apply topically if needed in the morning, at noon, and at bedtime (pain). 50 g 5 Active Active Problems Problem Noted Date Diagnosed Date Moderate persistent asthma with exacerbation 11/2023 Overview (03/05/2024): Established with Dr. Adair, Pulmonology last evaluated [...] versus scarring in the left lung apex. Assessment & Plan (03/05/2024 4:18 PM EST): Patient is a 68 y/o adult with pmhx significant for asthma, AIDAN, HTN that presents with body aches and ongoing productive cough. Using inhalers as prescribed. Vital signs WNL. Physical exam significant for inspiratory wheezing diffusely, no additional adventitious breath sounds. No peripheral edema. ECG demonstrated normal sinus rhythm. Symptoms suggest an upper respiratory infection progressing to a lower respiratory tract infection such as bronchitis, potentially causing an asthma exacerbation. Pneumonia also possibility given cough and phlegm production. Low suspicion for CHF as euvolemic on exam and no rales or crackles heard. - Perform a chest X-ray - Consideration of CAP antibiotic therapy if pneumonia is confirmed. - Use albuterol every four hours and Breo daily. - Prescribe a five-day course of prednisone at 40 mg, given past tolerance. - Order a nebulizer as an alternative to albuterol. - Follow up with fishing vessel mate, last appointment one year prior - Discussed RTC and ER precautions. Monitor for persistent symptoms, chest pain, persistent dyspnea at rest, pleuritic chest pain, and worsening symptoms. Osteoarthritis; Rheum doubts anything but osteoa rthritis 01/20/2024 Bilateral hand numbness 12/29/2022 Overview (12/29/2022): Neurology referral in place. Perforated ear drum, left 12/29/2022 Assessment & Plan (12/29/2022 5:14 PM EDT): Dry ear precautions Ear plugs at water aerobics Hypertension 06/22/2022 Anxiety 06/22/2022 Encounters Date Type Department Care Team Description 05/09/2024 9:30 AM [facility] Community Care Management [address] [address] Carla Boogie 04/25/2024 11:00 AM [facility] Community Care Management [address] [phone] Carla Boogie 04/23/2024 Orders Only [address] [phone] Callie Lawson FNP Stage 3 chronic kidney disease, unspecified whether stage 3a or 3b CKD ([facility]) (Primary Dx); Hypercalcemia 04/20/2024 10:40 AM EST Office Visit [address] [phone] Callie Lawson FNP Prediabetes (Primary Dx); Neuropathy 04/11/[address] [phone] Callie Lawson FNP 03/16/[address] [phone] Callie Lawson FNP Anxiety 03/06/2024 Orders Only [address] [phone] Edin Waggoner PA-C Moderate persistent asthma with exacerbation (Primary Dx) 03/06/[address] [phone] Callie Lawson FNP 03/05/2024 12:40 PM EST Office Visit [address] [phone] Edin Waggoner PA-C Moderate persistent asthma with exacerbation (Primary Dx) 03/05/[address] [phone] Callie Lawson FNP from Last 3 Months Immunizations Name Administration Dates Next Due Influenza High-dose Quadriva lent Preservative Free 01/14/2023,02/04/2022,02/06/2021 Influenza injectable quadriv alent preservative free 01/02/2020,01/05/2019,12/13/2017,02/02,12/04/2015,12/03/2014 Influenza, seasonal, injecta ble, preservative free 12/29/2023,02/05/2014 Moderna Covid-19 Vaccine 12+ 12/29/2023 Moderna Covid-19 Vaccine 6+ Bivalent 03/25/2022 Pneumococcal Polysaccharide PPSV23 02/06/2021 Tdap 03/05/2014 Zoster, Recombinant 05/24/2019,10/20/2018,2018 Zoster, Unspecified 05/24/2019 Family History Medical History Relation Name Comments Multiple sclerosis Daughter Yesenia Relation Name Status Comments Daughter Yesenia Alive Social History Tobacco Use Types Packs/Day Years Used Date Smoking Tobacco: Former Cigarettes Passive Smoke Exposure: Past Smokeless Tobacco: Never Tobacco Cessation:Counseling Given: Not Answered Alcohol Use Standard Drinks/Week Comments Never 0 [...] the past 12 months, has t he Admittor, gas, oil or water company threatened to shut off services in your home? No 08/15/2023 Depression Answer Date Recorded Patient Health Questionnaire-2 Score 0 08/15/2023 Comments Unknown Sex and Gender Information Value Date Recorded Sex Assigned at Female 04/14/2022 2:09 PM EST Legal Sex Female 2:07 PM EST Gender Identity Female 04/14/2022 2:09 PM EST Sexual Orientation Straight 04/14/2022 2: 09 PM EST Last Filed Vital Signs Vital Sign Reading Time Taken Comments Blood Pressure 127/75 04/20/2024 10:36 AM EST Pulse 81 04/20/2024 10:36 AM EST Temperature 36.1 ??C (97 ??F) 04/20/2024 10:36 AM EST Respiratory Rate - - Oxygen Saturation 96% 04/20/2024 10:36 AM EST Inhaled Oxygen Concentration - - Weight 117 kg (259 lb) 12/19/2023 3:40 PM EDT Height 152.4 cm (5') 12/19/2023 3:40 PM EDT Body Mass Index 50.58 12/19/2023 3:40 PM EDT Plan of Treatment Health Maintenance Due Date Last Done Comments CT Colonography 1955 Colonoscopy 1955 Colorectal Cancer Screening 1955 FIT DNA/Cologuard 1955 FIT 1955 FOBT 1955 Sigmoidoscopy 1955 Hepatitis C Screening 11/18/1973 RSV Patients and Patients Aged 60 years or older (1 - Risk 60-74 years 1-dose series) 2015 Pneumococcal Vaccine: 50+ Years (2 of 2 - PCV) 02/06/2022 02/06/2021 DTaP/Tdap/Td Vaccines (2 - Td or Tdap) 03/05/2024 03/05/2014 Depression Screening 08/14/2024 08/15/2023, 08/15/19 SDOH Screening 08/14/2024 08/15/2023 Alcohol/Substance Use Screening 09/22/2024 09/23/2023 Tobacco Screening 03/05/2025 03/05/2024 Diabetes: Hemoglobin A1C 04/20/2025 025, 08/15/2023, 12/24/2022, Additional history exists Mammogram 03/08/2026 03/08/2024, 01/07/2023 Lipid Panel 04/20/2029 04/20/2024, 06/22/2022 Zoster Vaccines Completed 05/24/2019, 04/29, 10/20/2018, Additional history exists COVID-19 Vaccine Completed 12/29/2023, , 06/08/2021, Additional history exists Influenza Vaccine Completed 12/29/2023, , 02/04/2022, Additional history exists HIB Vaccines Aged Out No longer eligi ble based on patient's age to complete this topic HPV Vaccines Aged Out No longer eligi ble based on patient's age to complete this topic Hepatitis A Vaccines Aged Out No long er eligible based on patient's age to complete this topic Hepatitis B Vaccines Aged Out No long er eligible based on patient's age to complete this topic IPV Vaccines Aged Out No longer eligi ble based on patient's age to complete this topic Meningococcal Vaccine Aged Out No ameena genna eligible based on patient's age to complete this topic RSV under 20 months Aged Out No longe r eligible based on patient's age to complete this topic Rotavirus Vaccines Aged Out No longer eligible based on patient's age to complete this topic Procedures Procedure Name Priority Date/Time Associated Diagnosis Comments URIC ACID Routine 04/20/2024 11:19 AM EST Prediabetes Neuropathy VITAMIN B12 Routine 04/20/2024 11:19 AM EST Prediabetes Neuropathy ALBUMIN, RANDOM URINE W/CREATININE Routine 04/20/2024 11:19 AM EST Prediabetes Neuropathy CBC Routine 04/20/2024 11:19 AM EST Prediabetes Neuropathy COMPREHENSIVE METABOLIC PANEL Routine 04/20/2024 11:19 AM EST Prediabetes Neuropathy HEMOGLOBIN A1C Routine 04/20/2024 11:19 AM EST Prediabetes Neuropathy LIPID PANEL, STANDARD Routine 04/20/2024 11:19 AM EST Prediabetes Neuropathy BI MAMMOGRAM SCREENING TOMOSYNTHESIS BILATERAL Routine 03/08/2024 11:30 AM EST ECG 12-LEAD Routine 03/05/2024 4:08 PM EST Moderate persistent asthma with exacerbation XR CHEST 2 VIEWS Routine 03/05/2024 1:45 PM EST Moderate persistent asthma with exacerbation POCT INFLUENZA A & B (ID NOW RAPID MOLECULAR) Routine 03/05/2024 1:18 PM EST Moderate persistent asthma with exacerbation POCT CORONAVIRUS PCR Routine 03/05/2024 1:18 PM EST Moderate persistent asthma with exacerbation from Last 3 Months Results * Albumin, Random Urine W/Creatinine (04/20/2024 11:19 AM EST) Creatinine, Random Urine 96 20 - 275 mg/dL [facility] Albumin, Urine <0.2 See Note: mg/dL [facility] Comment: Reference Range: Reference Range Not established Albumin/Creatinin e Ratio, Random Urine NOTE <30 mg/g creat [facility] Comment: NOTE: The urine albumin value is [...] EST FASTING:NO FASTING: NO us Callie Lawson [employer] [facility] URINE ORDERABLES Final Resul t [facility] [address] [place] [address] [facility] [address] [place] [address] * (ABNORMAL) CBC (04/20/2024 11:19 AM EST) White Blood Cell Count 10.3 3.8 - 10.8 Thousand/ uL [facility] Red Blood Cell Count 4.83 3.80 - 5.10 Million/u L [facility] Hemoglobin 13.7 11.7 - 15.5 g/dL [facility] Hematocrit 43.5 35.0 - 45.0 % [facility] MCV 90.1 80.0 - 100.0 fL [facility] MCH 28.4 27.0 - 33.0 pg [facility] MCHC 31.5(L) 32.0 - 36.0 g/dL [facility] Comment: For adults, a slight decrease in the calculated MCHC value (in the range of 30 to 32 g/dL) is most likely not clinically significant; however, it should be interpreted with caution in correlation with other red cell parameters and the patient's clinical condition. RDW 12.6 11.0 - 15.0 % [facility] Platelet Count 274 140 - 400 Thousand/ uL [facility] MPV 10.3 7.5 - 12.5 fL [facility] Blood Venous blood specimen / Unknown 04/20/2024 11:19 AM EST 04/20/2024 11:19 AM EST Narrative [facility] - 04/21/2024 7:23 PM EST FASTING:NO FASTING: NO Callie Lawson [facility] BLOOD ORDERABLES Final Resul t Performing Organization Address [facility]/ZIP Co de Phone Number [address], [place] [address] [facility] [address] [place] [address] * Uric acid (04/20/2024 11:19 AM EST) Uric Acid 6.5 2.5 - 7.0 mg/dL [facility] Comment: Therapeutic target for gout patients: <6.0 mg/dL ?? Blood Venous blood specimen / Unknown 04/20/2024 11:19 AM EST 04/20/2024 11:19 AM EST Narrative [facility] - 04/21/2024 7:23 PM EST FASTING:NO FASTING: NO Callie Lawson [facility] BLOOD ORDERABLES Final Resul t Performing Organization Address [facility] de Phone Number [facility] [address] [place] [address], [place] [address] [facility] [address] [place] [phone] * Hemoglobin A1c (04/20/2024 11:19 AM EST) Hemoglobin A1c 5.4 <5.7 % of total Hgb [facility] Comment: For the purpose of screening for the presence of diabetes: <5.7% ? Consistent with the absence of diabetes 5.7-6.4% ?Consistent with increased risk for diabetes ?(prediabetes) > or =6.5% ??Consistent with diabetes This assay result is consistent with a decreased risk of diabetes. Currently, no consensus exists regarding use of hemoglobin A1c for diagnosis of diabetes in children. According to [place] Diabetes Association (ADA) guidelines, hemoglobin A1c <7.0% represents optimal control in non- diabetic patients. Different metrics may apply to specific patient populations. Standards of Medical Care in Diabetes(ADA). ?? Blood Venous blood specimen / Unknown 04/20/2024 11:19 AM EST 04/20/2024 11:19 AM EST Narrative [facility] - 04/21/2024 7:23 PM EST FASTING:NO FASTING: NO Callie Lawson [facility] LAB BLOOD ORDERABLES Final Resul t Performing Organization Address [facility] de Phone Number [facility] [address] [phone] [facility] [address] [place] [address] * Vitamin B12 (04/20/2024 11:19 AM EST) Vitamin B12 379 200 - 1,100 pg/mL [facility] Comment: Please Note: Although the reference range [...] PM EST FASTING:NO FASTING: NO Callie Lawson [facility] BLOOD ORDERABLES Final Resul t Performing Organization Address [facility] de Phone Number [address], [facility] [place] [address] [facility] [address] [place] [address] * (ABNORMAL) Lipid Panel, Standard (04/20/2024 11:19 AM EST) Cholesterol, Total 210(H) <200 mg/dL [facility] HDL Cholesterol 74 > OR = 50 mg/dL [facility] Triglycerides 139 <150 mg/dL [facility] LDL Cholesterol 111(H) mg/dL [facility] Comment: Reference range: <100 Desirable range <100 mg/dL for primary prevention; ?? <70 mg/dL for patients with CHD or diabetic patients with > or = 2 CHD risk factors. LDL-C is now calculated using the Debbie calculation, which is a validated novel method providing better accuracy than the Friedewald equation in the estimation of LDL-C. Pipe MADERA et al. DAINA. 2013;310(19): 6217-6709 (http://education.GenArts/faq/CBI808) Chol/HDLC Ratio 2.8 <5.0 (calc) [facility] Non-HDL Cholesterol 136(H) <130 mg/dL [facility] Comment: For patients with diabetes plus 1 major ASCVD risk factor, treating to a non-HDL-C goal of <100 mg/dL (LDL-C of <70 mg/dL) is considered a therapeutic option. Blood Venous blood specimen / Unknown 04/20/2024 11:19 AM EST 04/20/2024 11:19 AM EST Narrative [facility] - 04/21/2024 7:23 PM EST FASTING:NO FASTING: NO us Callie Lawson [facility] BLOOD ORDERABLES Final Resul t [facility] [address] [place] [address] [facility] [address] [place] [address] * (ABNORMAL) Comprehensive Metabolic Panel (04/20/2024 11:19 AM EST) Glucose 88 65 - 139 mg/dL [facility] Comment: ? Non-fasting reference interval Urea Nitrogen (BUN) 24 7 - 25 mg/dL [facility] Creatinine, Serum 1.47(H) 0.50 - 1.05 mg/dL [facility] eGFR 39(L) > OR = 60 mL/min/1. 73m2 [facility] BUN/Creatinine Ratio 16 6 - 22 (calc) [facility] Sodium 140 135 - 146 mmol/L [facility] Potassium 4.3 3.5 - 5.3 mmol/L [facility] Chloride 100 98 - 110 mmol/L [facility] Carbon Dioxide 31 20 - 32 mmol/L [facility] Calcium 10.5(H) 8.6 - 10.4 mg/dL [facility] Protein, Total 7.4 6.1 - 8.1 g/dL [facility] Albumin 4.4 3.6 - 5.1 g/dL [facility] Globulin 3.0 1.9 - 3.7 g/dL (calc) [facility] Albumin/Globuli n Ratio 1.5 1.0 - 2.5 (calc) [facility] Bilirubin, Total 0.4 0.2 - 1.2 mg/dL [facility] Alkaline Phosphatase 77 37 - 153 U/L [facility] AST 20 10 - 35 U/L [facility] ALT 16 6 - 29 U/L [facility] Blood Venous blood specimen / Unknown 04/20/2024 11:19 AM EST 04/20/2024 11:19 AM EST Narrative [facility] - 04/21/2024 7:23 PM EST FASTING:NO FASTING: NO us Callie Lawson [facility] BLOOD ORDERABLES Final Resul t Performing Organization Address City/State/[facility] Co de Phone Number [facility] [address] [place] [address] [facility] [address] [place] [address] * BI Mammogram Screening Tomosynthesis Bilateral (03/08/2024 11:30 AM EST) Anatomical Region Laterality Modality Breast Bilateral Mammography 03/08/2024 11:3 0 AM EST Narrative 03/08/2024 3:05 PM EST PROCEDURE: MM Digital Mammo Screening INDICATION: Screening for breast cancer. No known palpable abnormalities. Personal history of LEFT breast cancer with lumpectomy and radiation in 2013. COMPARISON: Prior mammograms dating back to 12/27/2014. TECHNIQUE: Full-field digital CC and MLO 3-D tomosynthesis images of both breasts were acquired. Computer-aided detection (CAD) was utilized in the interpretation of this study. DENSITY: The breast tissue is heterogeneously dense, which may obscure small masses. FINDINGS: No suspicious masses, suspicious microcalcifications, or new suspicious areas of architectural distortion are seen in either breast to suggest malignancy. Stable LEFT breast post lumpectomy changes with scarring and distortion at the lumpectomy site. IMPRESSION: No mammographic evidence of malignancy. RECOMMENDATION: Annual mammographic screening BI-RADS: 2 (Benign) Lay letter mailed to patient WSN: [id number] Ordering Physician: Callie Lawson Dictated By: ?Veda Riley MD Dictated Date/Time: ?03/08/24 3:01 pm Reviewed By: ?Veda Riley MD Signed By: ? Veda Riley MD Signed Date/Time: ? 03/08/24 3:01 pm Transcribed By: ? CSB [employer] Date/Time: ? 03/08/24 2:29 pm Birads: Procedure Note Donotuseinterpreter, Image - 03/08/2024 PROCEDURE: MM Digital Mammo Screening INDICATION: Screening for breast cancer. No known palpableabnormalities. Personal history of LEFT breast cancer with lumpectomy and radiation [id number]. COMPARISON: Prior mammograms dating back to 12/27/2014. TECHNIQUE: Full-field digital CC and MLO 3-D tomosynthesis images ofboth breasts were acquired. Computer-aided detection (CAD) was utilized inthe interpretation of this study. DENSITY: The breast tissue is heterogeneously dense, which may obscuresmall masses. FINDINGS: No suspicious masses, suspicious microcalcifications, or new suspicious areas of architectural distortion are seen in either breastto suggest malignancy. Stable LEFT breast post lumpectomy changes withscarring and distortion at the lumpectomy site. IMPRESSION: No mammographic evidence of malignancy. RECOMMENDATION: Annual mammographic screening BI-RADS: 2 (Benign) Lay letter mailed to patient WSN: [id number] Ordering Physician: Calile Lawson Dictated By: Veda Riley MD Dictated Date/Time: 03/08/24 3:01 pm Reviewed By: Veda Riley MD Signed By: Veda Riley MD Signed Date/Time: 03/08/24 3:01 pm Transcribed By: KELLY [employer] Date/Time: 03/08/24 2:29 pm Birads: Callie Lawson [employer] IMG BI PROCEDURES Final Result * ECG 12 lead (03/05/2024 4:08 PM EST) Narrative Edin Waggoner PA-C - 03/05/2024 4:08 PM EST Normal Sinus Rhythm, No ectopy, No ST-T abnormalities Vent Rate: 73 BPM FL int: 161 ms QRS dur: 92 ms QT/Qtc 348/374 P-R-T axes: 37 -2 24 Edin Waggoner PA-C ECG ORDERABLES Final Result * XR Chest 2 Views (03/05/2024 1:45 PM EST) Anatomical Region Laterality Modality Chest Radiographic Tracy ging 03/05/2024 1:45 PM EST Narrative 03/06/2024 10:11 AM EST Chest 2 Views Frontal and Lat Reason: moderate persistent asthma with exacerbation COMPARISON: None. FINDINGS: LINES AND TUBES: None. LUNGS AND PLEURA: Clear lungs. Stable linear scarring left apex. Stable mild bilateral apical pleural thickening and scarring. Normal pulmonary vascularity. No pleural effusion. No pneumothorax. HEART, MEDIASTINUM AND AZUL: Heart is normal in size. Normal mediastinal and hilar contour. BONES AND SOFT TISSUES: No acute abnormality. Clustered surgical clips are seen in the right upper abdominal quadrant, suggestive of cholecystectomy. IMPRESSION: No acute abnormality. WSN: [id number] Ordering Physician: Edin Waggoner Dictated By: ?Anmol Miles MD Dictated Date/Time: ?03/06/24 10:08 a Reviewed By: ?Anmol Miles MD Signed By: ? Anmol Miles MD Signed Date/Time: ? 03/06/24 10:08 am Transcribed By: ? KELLY Transcribed Date/Time: ?03/06/24 10:06 am Procedure Note Donotuseinterpreter, Image - 03/06/2024 Chest 2 Views Frontal and Lat Reason: moderate persistent asthma with exacerbation COMPARISON: None. FINDINGS: LINES AND TUBES: None. LUNGS AND PLEURA: Clear lungs. Stable linear scarring left apex. Stable mild bilateralapical pleural thickening and scarring. Normal pulmonary vascularity. No pleural effusion. No pneumothorax. HEART, MEDIASTINUM AND AZUL: Heart is normal in size. Normal mediastinal and hilar contour. BONES AND SOFT TISSUES: No acute abnormality. Clustered surgical clips are seen in the rightupper abdominal quadrant, suggestive of cholecystectomy. IMPRESSION: No acute abnormality. WSN: [id number] Ordering Physician: Edin Waggoner Dictated By: Anmol Miles MD Dictated Date/Time: 03/06/24 10:08 a Reviewed By: Anmol Miles MD Signed By: Anmol Miles MD Signed Date/Time: 03/06/24 10:08 am Transcribed By: KELLY Transcribed Date/Time: 03/06/24 10:06 am Edin Waggoner PA-C IMG XR PROCEDURES Final Result * POCT INFLUENZA A & B (ID NOW RAPID MOLECULAR) (03/05/2024 1:18 PM EST) Rapid Influenza A Ag Negative Negative, Indeterminate Rapid Influenza B Ag Negative Negative, Indeterminate Swab 03/05/2024 1:18 PM EST Edin Shostek PA-C POINT OF CARE TEST ENTER/EDIT ORDERABLES Final Result * POCT Coronavirus PCR (03/05/2024 1:18 PM EST) Coronavirus Antigen PCR Negative Negative, Indeterminate, None Detected, Invalid, Specimen unsatisfactory for evaluation, Weakly Positive Swab 03/05/2024 1:18 PM EST [facility] Shostek PA-C POINT OF CARE TEST ENTER/EDIT ORDERABLES Final Result from Last 3 Months Insurance Member Subscriber Plan / Payer (Ef fective 2022-Present) Name:Kiya Fragoso Relation to Subscriber:Self Name:Kiya Fragoso Payer ID:Not on file Group ID:Not on file Type:Medicaid Address: [facility] [id number] [place] [id number] [place], [place] [address]O-SNP Care Teams [facility] Officer Relationship Specialty Start Date End Date Callie Lawson FNP [address] [place] [address] PCP - General Family Medicine 10/14/22
--- OUTSIDE RECORDS SUMMARY | 2024-05-23 17:02 | XMS_ITS | Encounter Summary ---
Author Organization [employer] Address 75 [facility] 7t [place] [address] Care Team Providers Care Ultrasound Spec Name Role Phone Callie Lawson JENNI Primary Care Provider [phone] Encounter Details Date Type Department Care Team ([facility] Contact Info) Description 04/25/2024 11:00 AM EST Community Care Management [facility] OM [facility] [address] [phone] Carla Boogie 102 [place] [address] Social History Tobacco Use Types Packs/Day Years [...] the past 12 months, has t he [email or web address], gas, oil or water company threatened to [...] encounter Progress Notes * Carla Boogie - 04/25/2024 11:00 AM EST Pt called to request in house transport for 05/08 [facility] at 1045am We do not have availability for this appt, I let pt know some dates/times we have open incase she needs to reschedule documented in this encounter Plan of Treatment Not on file documented as of this encounter Visit Diagnoses Not on filedocumented in this encounter Care Teams Ultrasound Spec Relationship Specialty Start Date End Date Callie Lawson FNP [address] [place], [place] [phone] PCP - General Family Medicine 10/14/22 documented as of this encounter
--- OUTSIDE RECORDS SUMMARY | 2024-05-23 17:02 | XMS_ITS | Encounter Summary ---
Author Organization [employer] Address 75 [facility] 7t [place] [address] Care Team Providers Care Manager Of Project Management Name Role Phone Callie Lawson Primary Care Provider [phone] Farrah Jackman Unavailable Encounter Details Date Type Department Care Team ([facility] Contact Info) Description 10/14/2022 Orders Only [facility] [address] [facility] [address] [place] [address] Marli Cornejo MD [address] [place] [address] Social History Tobacco Use Types Packs/Day Years [...] on filedocumented in this encounter Care Teams Manager Of Project Management Relationship Specialty Start Date End Date Callie Lawson FNP [address] [place] [address] PCP - General Family Medicine 10/14/[address] [place] [address] 01/27/23 10/11/23 documented as of this encounter
--- OUTSIDE RECORDS SUMMARY | 2024-05-23 17:02 | XMS_ITS | Encounter Summary ---
Author Organization [employer] Address 75 [facility] 7t [place] [address] Care Team Providers Care Corporate Director Name Role Phone Callie Lawson Primary Care Provider [phone] Encounter Details Date Type Department Care Team ([facility] Contact Info) Description 04/11/2024 Telephone [facility] [address] [place] [phone] Callie Lawson FNP 102 [place] [address] Social History Tobacco Use Types Packs/Day Years [...] encounter Miscellaneous Notes * Telephone Encounter - WENDY Vidal - 04/12/2024 8:43 AM EST Left voicemail for Yasmin providing direct call back extension. 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 Pts documented in this encounter Plan of Treatment Not on file documented as of this encounter Visit Diagnoses Not on filedocumented in this encounter Care Teams Corporate Director Relationship Specialty Start Date End Date Callie Lawson FNP [address] [place] [address] PCP - General Family Medicine 10/14/22 documented as of this encounter
--- OUTSIDE RECORDS SUMMARY | 2024-05-23 17:02 | XMS_ITS | Encounter Summary ---
Author Organization [employer] Address 75 [facility] 7t [place] [address] Care Team Providers Care Training Development Manager Name Role Phone Callie Lawson Primary Care Provider [phone] Farrah Jackman Unavailable Encounter Details Date Type Department Care Team ([facility] Contact Info) Description 06/16/[address] [facility] 102 [place] [address] Callie Lawson FNP 102 [place] [address] Social History Tobacco Use Types Packs/Day Years [...] * Telephone Encounter - Ajay Bonilla - 06/16/2023 10:15 AM EDT Called PT and informed we don't have results yet but will reach out after provider receives and reviews. * Telephone Encounter - Mor Padilla - 06/16/2023 9:35 AM EDT Patient is informs she just had labs done and is requesting a call about them. Please call to advise documented in this encounter Plan of Treatment Not on file documented as of this encounter Visit Diagnoses Not on filedocumented in this encounter Care Teams Training Development Manager Relationship Specialty Start Date End Date Callie Lawson FNP [address] [place] [address] PCP - General Family Medicine 10/14/22 Farrah Jackman [address] [place] [address] 01/27/23 10/11/23 documented as of this encounter
--- OUTSIDE RECORDS SUMMARY | 2024-05-23 17:02 | XMS_ITS | Encounter Summary ---
Author Organization [employer] Address 75 [facility] 7t [place] [address] Care Team Providers Care Brake Drum Lathe Operator Name Role Phone Callie Lawson Primary Care Provider [phone] Encounter Details Date Type Department Care Team ([facility] Contact Info) Description 03/06/2024 Telephone [facility] 102 [place] [phone] Callie Lawson FNP [address] [place] [address] Social History Tobacco Use Types Packs/Day Years [...] encounter Miscellaneous Notes * Telephone Encounter - Olivia Mukherjee - 03/06/2024 1:47 PM EST Sent to Velma * Telephone Encounter - Selina Mendez - 03/06/2024 10:59 AM EST Kiya called stating she got the Albuterol from the Pharmacy but was told they do not carry the Respiratory Therapy Supplies (Nebulizer/Tubing/Mouthpiece) kit they told her to call PCP and have them order it thru [facility] . Please call Pt. When this has been done. Call back #[phone] documented in this encounter Plan of Treatment Not on file documented as of this encounter Visit Diagnoses Not on filedocumented in this encounter Care Teams Brake Drum Lathe Operator Relationship Specialty Start Date End Date Callie Lawson FNP [address] [place] [address] PCP - General Family Medicine 10/14/22 documented as of this encounter
--- OUTSIDE RECORDS SUMMARY | 2024-05-23 17:02 | XMS_ITS | Encounter Summary ---
Author Organization [facility] Address [address] [place] [address] Phone Care Team Providers Care Cotton Candy Maker Name Role Phone Callie Lawson Primary Care Provider [phone] Encounter Details Date Type Department Care Team (Late Contact Info) Description 05/02/2024 Documentation Only [facility], [address] [place] [address] Dawna BedollaRAPELJE, [place] [address] [place] [address] Social History Tobacco Use Types [...] Visit [facility] [address] [phone] Yash Meza MD [address] [place] [phone] documented as of this encounter Visit Diagnoses Not on filedocumented in this encounter Care Teams Cotton Candy Maker Relationship Specialty Start Date End Date Callie Lawson FNP [address] [place] [address] PCP - General Nurse Practitioner 05/02/24 documented as of this encounter
--- OUTSIDE RECORDS SUMMARY | 2024-05-23 17:02 | XMS_ITS | Encounter Summary ---
Author Organization [employer] Address [address] [place] [address] 7t [place] [address] Care Team Providers Care Co Founder & Ceo Name Role Phone Callie Lawson Primary Care Provider [phone] Farrah Jackman Unavailable Reason for Referral * Consultation (Routine) - Canceled Specialty Diagnoses / Procedures Referred By Contkit t Referred To Contact Diagnoses Hematuria, unspecified type Callie Lawson FNP [address] [place] [address] Phone: tel: fax: Provider, Not In System Referral ID Status Reason Start Date Expiration Date Visits Requested Visits Authorized [id number] Canceled Specialty Services Required 08/21/2023 08/20/2024 1 1 Encounter Details Date Type Department Care Team ([facility] st Contact Info) Description 08/17/2023 Orders Only [facility] [address] [place] [phone] Callie Lawson FNP [address] [place] [address] Hematuria, unspecified type (Primary Dx); Obesity (BMI 35.0-39.9 without comorbidity); Chronic pain of right knee Social History Tobacco Use Types Packs/Day Years [...] things needed for daily living? No 08/15/2023 Utilities Answer Date Recorded In the past [...] of this encounter Plan of Treatment Scheduled Referrals Name Type Priority Associated Diagnoses Orde r Schedule Referral to Diagnostic Radiology Outpatient Referral Routine Hematuria, unspecified type Expected: 08/21/2023 (Approximate), Expires: 08/16/2024 documented as of this encounter Visit Diagnoses Diagnosis Hematuria, unspecified type- Primary Obesity (BMI 35.0-39.9 without comorbidity) Chronic pain of right knee documented in this encounter Care Teams Co Founder & Ceo Relationship Specialty Start Date End Date Callie Lawson FNP 102 [place] [address] PCP - General Family Medicine 10/14/22 Farrah Jackman [address] [place] [address] 01/27/23 10/11/23 documented as of this encounter
--- OUTSIDE RECORDS SUMMARY | 2024-05-23 17:02 | XMS_ITS | Encounter Summary ---
Author Organization [employer] Address 75 [facility] 7t [place] [address] Care Team Providers Care Aircraft Instrument Engineer Name Role Phone Callie Lawson JENNI Primary Care Provider [phone] Farrah Jackman Unavailable Reason for Visit * Reason Comments Med Refill Encounter Details Date Type Department Care Team (Late st Contact Info) Description 10/14/2022 Refill [facility] [address] [facility] [address] [place] [address] Sushila Abrams FNP 119 [place] [address] Social History Tobacco Use Types Packs/Day Years [...] Encounter - Marli Cornejo MD - 10/14/2022 3:46 PM EDT done * Telephone Encounter - India Sarabia - 10/14/2022 3:31 PM EDT Sent to provider pool as CT not in today documented in this encounter Plan of Treatment Not on file documented as of this encounter Visit Diagnoses Not on filedocumented in this encounter Care Teams Aircraft Instrument Engineer Relationship Specialty Start Date End Date Callie Lawson FNP [address] [place] [address] PCP - General Family Medicine 10/14/22 Farrah Jackman 119 [place] [address] 01/27/23 10/11/23 documented as of this encounter
== END 2024-05-23 14:34 | disposition home or self-care (01) ==
PROVIDERS: PCP Nurse Practitioner Family; Visit Provider Orthopaedic Surgery
DX: M17.11 Unilateral primary osteoarthritis, right knee (principal)
CPT/HCPCS: 99213; G2211

== ENCOUNTER → 2024-05-23 13:51 | Outpatient (BNVA) | payer MEDICARE, SELFPAY | PROVIDERS: PCP Nurse Practitioner Family; Visit Provider Orthopaedic Surgery | DX: M17.11 Unilateral primary osteoarthritis, right knee (principal) | CPT/HCPCS: 99212 ==

== ENCOUNTER 2024-06-13 13:29 | Outpatient (AMB) | payer MEDICARE, SELFPAY ==
--- NOTE | 2024-06-13 13:33 | A.OFFVIS_ITS ---
Vital Signs 06/13/24 13:41 Height 5 ft 2 in Weight 252 lb BMI 46.1 Intake Visit Reasons: Inj-Right Knee Euflexxa #1 Intake Note: Kiya is a 68 year old female who presents with complaints of progressively worsening right knee pain. She describes her sharp in nature. She has failed the last 3 months of conservative treatment. She has had cortisone injections past which gave her minimal relief. She has also tried Tylenol and anti- inflammatory medicines which gave her only mild relief. She wishes to hold off on surgery if at all possible. Allergies No Known Allergies Allergy (Verified 06/13/24 13:40) Medication List - Last Reconciled 06/13/24 by Sanya Arias MD albuterol sulfate 90 mcg/actuation inhalation cetirizine 10 mg PO DAILY famotidine 20 mg PO DAILY fluticasone furoate-vilanterol 100-25 mcg/dose (Breo Ellipta) 1 ea inhalation DAILY fluticasone furoate-vilanterol 200-25 mcg/dose (Breo Ellipta) 1 inh inhalation DAILY gabapentin 300 mg PO TID hydrochlorothiazide 25 mg PO DAILY lorazepam 0.5 mg PO BEDTIME PRN losartan 100 mg PO DAILY magnesium oxide 250 mg PO DAILY omeprazole 40 mg PO DAILY trazodone 150 mg PO BEDTIME PFSH Surgical History (Updated 07/26/23 @ 09:13 by Sun Samuel CMA) Hx of lumpectomy Hx of cholecystectomy Hx of section Social History (Updated 07/26/23 @ 09:14 by Sun Samuel CMA) Patient Tobacco Use Status: Never used Tobacco 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al status: unemployed 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 Physical Exam Vital Signs: BMI result Body Mass Index 46.1 Const Other: Well-nourished well-developed very friendly female awake alert and oriented x3 in no acute distress Extrem Other: Bilateral lower extremity examination shows good capillary refill, no skin lesions noted, normal sensation light touch Right knee examination shows a minimal effusion, palpable crepitus with range of motion, pain with range of motion, no instability Office Procedures AMB Joint Injection/Aspiration Joint Injection/Aspiration Primary Site: right knee Prep: site was prepped using aseptic technique Injected: 20 mg of (Euflexxa viscosupplementation) and 1% plain lidocaine Procedure: The patient tolerated the procedure well Coding 74705 - Large joint Procedure code (CPT) selection complete Results Reviewed Results Reviewed: X-rays of the patient's right knee taken previously show joint space narrowing, subchondral sclerosis, no acute bony abnormalities Assessment & Plan Assessment & Plan (1) Osteoarthritis of right knee: Code(s): M17.11 - Unilateral primary osteoarthritis, right knee Category: Medical Plan Ms. Fragoso presents with progressively worsening right knee pain due to osteoarthritis. The risks and benefits of a series of right knee Euflexxa viscosupplementation injections were discussed at length with the patient. The patient wished to proceed. She tolerated the 1st injection well. She will continue with her home exercise program. She will follow up next week as scheduled. Feel free to call me at any time should questions regarding her orthopedic management arise. I spent 22 minutes in reviewing the patient's records and imaging studies, seeing the patient and documenting in the medical record. Orders: Orders AMB Joint Injection/Aspiration Today M17.11 - Unilateral primary osteoarthritis, right knee Coding Level of Care Code Est Pt Level 3 (22736) Complex EM visit Add On G2211 Diagnoses Osteoarthritis of right knee M17.11 CPT Codes Coding - 20523 Large joint: 44341 - Large joint ([id number])
[2024-06-13 13:41] VITALS: BMI 46.1
--- OUTSIDE RECORDS SUMMARY | 2024-06-13 15:55 | XMS_ITS | Encounter Summary ---
Author Organization [employer] Address 75 [facility] 7t [place] [address] Care Team Providers Care Clinical Rehabilitation Liaison Name Role Phone Callie Lawson JENNI Primary Care Provider [phone] Encounter Details Date Type Department Care Team ([facility] Contact Info) Description 05/31/2024 11:30 AM [facility] Community Care Management [facility] OM CHW [address] [phone] Carla Boogie [address] [place] [address] Social History Tobacco Use Types Packs/Day Years [...] the past 12 months, has t he [employer], gas, oil or water company threatened to [...] encounter Progress Notes * Carla Boogie - 05/31/2024 11:30 AM EST Pt requested in house transport for; Orthopedic appt [address] [place] [address] dr leroy 06/13 145pm Pickup for 1230 06/20 at 2pm Pickup for 1pm 06/28 at 1030am Pickup for 930am documented in this encounter Plan of Treatment Not on file documented as of this encounter Visit Diagnoses Not on filedocumented in this encounter Care Teams Clinical Rehabilitation Liaison Relationship Specialty Start Date End Date Callie Lawson FNP [address] [place] [address] PCP - General Family Medicine 10/14/22 documented as of this encounter
--- OUTSIDE RECORDS SUMMARY | 2024-06-13 15:55 | XMS_ITS | Encounter Summary ---
Author Organization [facility] Address [address] [place] [address] Phone Care Team Providers Care Keying Machine Operator Name Role Phone Callie Lawson Primary Care Provider [phone] Encounter Details Date Type Department Care Team (Late st Contact Info) Description 05/02/2024 Documentation Only [facility], [address] [place] [place] [address] Dawna BedollaLOS GATOS, [place] [address] [place] [address] Social History Tobacco Use Types [...] Care Team (Late st Contact Info) Description 12/05/2024 11:30 AM EDT Office Visit [facility] [address] [address] Hortensia Ball DO [address] [place] [address] documented as of this encounter Visit Diagnoses Not on filedocumented in this encounter Care Teams Keying Machine Operator Relationship Specialty Start Date End Date Callie Lawson FNP 102 [place] [address] PCP - General Nurse Practitioner 05/02/24 documented as of this encounter
--- OUTSIDE RECORDS SUMMARY | 2024-06-13 15:55 | XMS_ITS | Encounter Summary ---
Author Organization [employer] Address 75 [facility] 7t [place] [address] Care Team Providers Care V Block Saw Operator Name Role Phone Callie Lawson Primary Care Provider [phone] Farrah Jackman Unavailable Encounter Details Date Type Department Care Team ([facility] Contact Info) Description 06/16/2023 Telephone [facility] [address] [place] [address] Callie Lawson FNP 102 [place] [address] Social History Tobacco Use Types Packs/Day Years [...] on filedocumented in this encounter Care Teams V Block Saw Operator Relationship Specialty Start Date End Date Callie Lawson FNP [address] [place] [address] PCP - General Family Medicine 10/14/22 Farrah Jackman [address] [place] [address] 01/27/23 10/11/23 documented as of this encounter
--- OUTSIDE RECORDS SUMMARY | 2024-06-13 15:55 | XMS_ITS | Encounter Summary ---
Author Organization [employer] Address 75 [facility] 7t [place] [address] Care Team Providers Care Mri Special Procedures Technologist Name Role Phone Calile Lawson JENNI Primary Care Provider Farrah Jackman Unavailable Encounter Details Date Type Department Care Team ([facility] Contact Info) Description 09/28/2023 Orders Only [facility] Information Management [address] [place], [place] [phone] Provider, Not In System Social History Tobacco [...] on filedocumented in this encounter Care Teams Mri Special Procedures Technologist Relationship Specialty Start Date End Date Callie Lawson FNP [address] [place] [address] PCP - General Family Medicine 10/14/22 Farrah Jackman 119 [place] [address] 01/27/23 10/11/23 documented as of this encounter
--- OUTSIDE RECORDS SUMMARY | 2024-06-13 15:55 | XMS_ITS | Encounter Summary ---
Author Organization [employer] Address 75 [facility] 7t [place] [address] Care Team Providers Care Mushroom Cutter Name Role Phone Callie Lawson Primary Care Provider [phone] Farrah Jackman Unavailable Reason for Visit * Reason Comments Med Refill Encounter Details Date Type Department Care Team ([facility] st Contact Info) Description 01/08/[address] [place] [address] Callie Lawson FNP [address] [place] [address] Social History Tobacco Use Types Packs/Day Years [...] on filedocumented in this encounter Care Teams Mushroom Cutter Relationship Specialty Start Date End Date Callie Lawson FNP [address] [place] [address] PCP - General Family Medicine 10/14/22 Farrah Jackman 119 [place] [address] 01/27/23 10/11/23 documented as of this encounter
--- OUTSIDE RECORDS SUMMARY | 2024-06-13 15:55 | XMS_ITS | Encounter Summary ---
Author Organization [employer] Address 75 [facility] 7 [place] [address] Care Team Providers Care A R Specialist Name Role Phone Callie Lawson Primary Care Provider [phone] Reason for Referral * Consultation (Routine) - Pending Review Specialty Diagnoses / Procedures Referred By Jossy jacques Referred To Contact Behavioral Health Diagnoses Current mild episode of major depressive disorder without prior episode (CMS/HCC) Callie Lawson FNP [address] [place] [address] Phone: tel: fax: [facility] [address] [place] [address] Phone: tel: fax: Referral ID Status Reason Start Date Expiration Date Visits Requested Visits Authorized [id number] Pending Review Specialty Services Required 05/24/2024 05/24/2025 1 1 * Consultation (Routine) - Authorized Specialty Diagnoses / Procedures Referred By Jossy jacques Referred To Contact Behavioral Health Diagnoses Current mild episode of major depressive disorder without prior episode (CMS/HCC) Callie Lawson FNP [address] [place] [address] Phone: tel: fax: [employer] [facility] [address] [place], [place] Phone: tel: fax: Referral ID Status Reason Start Date Expiration Date Visits Requested Visits Authorized [id number] Authorized Specialty Services Required 05/24/2024 05/24/2025 6 6 Reason for Visit * Reason Comments Follow-up Left breast wound is still pussing, in lots of pain still. Encounter Details Date Type Department Care Team (Late st Contact Info) Description 05/24/2024 1:40 PM EST Office Visit [address] [phone] Callie Lawson FNP [address] [place] [address] Abscess (Primary Dx); Current mild episode of major depressive disorder without prior episode (CMS/HCC) Social History Tobacco Use Types Packs/Day Years [...] is your housing situation today? I have simbaruddy lebron 08/15/[address] [...] the past 12 months, has t he [email or web address], [employer], oil or water [employer] threatened to shut off services in your [...] Sign Reading Time Taken Comments Blood Pressure 143/84 05/24/2024 1:32 PM EST Pulse 69 05/24/2024 1:32 PM EST Temperature 36.1 ??C (97 ??F) 05/24/2024 1:32 PM EST Respiratory Rate - - Oxygen Saturation 98% 05/24/2024 1:32 PM EST Inhaled Oxygen Concentration - - Weight 113 kg (249 lb) 05/24/2024 1:32 PM EST Height - - Body Mass Index 48.63 12/19/2023 3:40 PM EDT documented in this encounter Progress Notes * Callie Lawson, JENNI - 05/24/2024 1:40 PM EST Subjective Patient ID: Kiya Fragoso is a 68 y.o. female who presents for Follow-up (Left breast wound is still pussing, in lots of pain still. ). Started 7 days ago and today popped open and leaking white smelly dc, painful the last day or two 2. Her ins called and offered therapy; needs referral for depression HPI Review of Systems Objective Physical Exam Cardiovascular: Rate and Rhythm: Normal rate and regular rhythm. Heart sounds: Normal heart sounds. Pulmonary: Effort: Pulmonary effort is normal. Breath sounds: Normal breath sounds. Skin: Comments: Left inner below breast along braline is a 1.5 cmx1 cm abscess; redness is 3cm by 2 cm Expressed white dc Assessment/Plan Diagnoses and all orders for this visit: Abscess - cephalexin (Keflex) 500 MG capsule; Take 1 capsule (500 mg) by mouth 3 times daily for 10 days. - Culture, Superficial Wound; Future Current mild episode of major depressive disorder without prior episode (CMS/HCC) - Referral to Behavioral Health; Future - Referral to Behavioral Health; Future Discussed hot soaks and will call with results on Tuesday and rtc worse or cont Use bandaids and antibiotic cream Ibuprofen and tyl for pain documented in this encounter Plan of Treatment Scheduled Orders Name Type Priority Associated Diagnoses Orde r Schedule Culture, Superficial Wound Microbiology Routine Abscess Expected: 05/24/2024 (Approximate), Expires: 05/24/2025 Scheduled Referrals Name Type Priority Associated Diagnoses Order Schedule Referral to Behavioral Health Outpatient Referral Routine Current mild episode of major depressive disorder without prior episode (CMS/HCC) Expected: 05/24/2024 (Approximate), Expires: 05/24/2025 Referral to Behavioral Health Outpatient Referral Routine Current mild episode of major depressive disorder without prior episode (CMS/HCC) Expected: 05/24/2024 (Approximate), Expires: 05/24/2025 documented as of this encounter Visit Diagnoses Diagnosis Abscess- Primary Cellulitis and abscess of unspecified site Current mild episode of major depressive disorder without prior episode (CMS/HCC) documented in this encounter Care Teams A R Specialist Relationship Specialty Start Date End Date Callie Lawson FNP [address] [place] [address] PCP - General Family Medicine 10/14/22 documented as of this encounter
--- OUTSIDE RECORDS SUMMARY | 2024-06-13 15:55 | XMS_ITS | Encounter Summary ---
Author Organization [employer] Address 75 [facility] 7t [place] [address] Care Team Providers Care Real Estate Financial Analyst Name Role Phone Callie Lawson JENNI Primary Care Provider [phone] Farrah Jackman Unavailable Reason for Visit * Reason Comments Med Refill Encounter Details Date Type Department Care Team (Late st Contact Info) Description 10/14/2022 Refill [facility] [address] [facility] [address] [place] [address] Sushila Abrams FNP [address] [place] [address] Social History Tobacco Use Types Packs/Day Years [...] on filedocumented in this encounter Care Teams Real Estate Financial Analyst Relationship Specialty Start Date End Date Callie Lawson FNP [address] [place] [address] PCP - General Family Medicine 10/14/22 Farrah Jackman [address] [place] [address] 01/27/23 10/11/23 documented as of this encounter
--- OUTSIDE RECORDS SUMMARY | 2024-06-13 15:55 | XMS_ITS | Encounter Summary ---
Author Organization [facility], Address [address] [place] [address] Phone Care Team Providers Care Electric Truck Crane Operator Name Role Phone Callie Lawson Primary Care Provider [phone] Reason for Visit * Reason Comments Chronic Kidney Disease Encounter Details Date Type Department Care Team (Late st Contact Info) Description 05/30/2024 10:00 AM EST Office Visit [facility] [address] [phone] Hortensia Ball DO [address] [place] [phone] Stage 3b chronic kidney disease (HCC) (Primary Dx); Hypertension Social History Tobacco Use Types Packs/Day Years Used Date Smoking Tobacco: Former Cigarettes Tobacco Cessation:Counseling Given: Not Answered Alcohol Use Standard Drinks/Week Comments Never 0 (1 standard drink = 0.6 oz pur e alcohol) Comments Unknown Sex and Gender Information Value Date Recorded Sex Assigned at Not on file Legal Sex Female 11:30 AM EST Gender Identity Not on file Sexual Orientation Not on file documented as of this encounter Last Filed Vital Signs Vital Sign Reading Time Taken Comments Blood Pressure 126/64 05/30/2024 10:20 AM EST Pulse - - Temperature - - Respiratory Rate - - Oxygen Saturation - - Inhaled Oxygen Concentration - - Weight - - Height - - Body Mass Index - - documented in this encounter Progress Notes * Hortensia Ball DO - 05/30/2024 10:00 AM EST Images from the original note were not included. PATIENT: Kiya Fragoso : 1955 ENCOUNTER: 05/30/2024 PCP: Callie Lawson FNP HPI: Kiya Fragoso is a 68 y.o. year old female with a history of asthma, obesity, hypertension and chronickidney disease who is here to establish care for chronic kidney disease. Per review of available records her baseline creatinines have ranged anywhere between 1.4-1.6 since at least 2022. She did have a prolonged ICU stay for COVID about 4 years ago. Her creatinines were normal prior to this, but highly variable and in a similar range during the hospitalization. I see an albumin to creatinine ratio that was normal in March of this year. I see a CT of the abdomen pelvis from August of last year that showed that the kidneys are slightly atrophic without mass, cyst, or calculus. No hydronephrosis was present. The bladder was minimally distended and grossly unremarkable. In March she also hada CBC done and no anemia was noted. She reports a history of high blood pressure for about 20 years. She reports that it is generally well-controlled on hydrochlorothiazide and losartan. She denies a history of NSAID use, hematuria, kidney stones, cardiovascular disease, cerebrovascular disease, peripheral vascular disease, and CHF. She does have a history of sleep apnea and is on a CPAP. Today she feels well and denies all complaints. ROS: Constitutional: No fever. Respiratory: No shortness of breath. Cardiovascular: No chest pain. No edema. Gastrointestinal: No abdominal pain, nausea or vomiting. Genitourinary: No hematuria. All other systems reviewed and are negative. PAST MEDICAL HISTORY: Patient Active Problem List Diagnosis Date Noted Stage 3b chronic kidney disease (HCC) 05/23/2024 Hypertension 06/22/2022 PAST SURGICAL HISTORY: Past Surgical History: Procedure Laterality Date SECTION, CLASSIC GALLBLADDER SURGERY SOCIAL HISTORY: Social History Tobacco Use Smoking status: Former Types: Cigarettes Smokeless tobacco: Not on file Substance Use Topics Alcohol use: Never FAMILY HISTORY: Family History Problem Relation Age of Onset COPD Mother Cancer Sister MEDICATIONS: Current Outpatient Medications: albuterol HFA (PROVENTIL HFA;VENTOLIN HFA) 108 (90 Base) MCG/ACT inhaler, Inhale 2 puffs every 6 (six) hours if needed for wheezing, Disp: , Rfl: Cetirizine HCl 10 MG capsule, Take by oral route., Disp: , Rfl: cholecalciferol (VITAMIN D-3) 25 MCG (1000 UT) capsule, Take 1,000 Units by mouth 1 (one) time eachday, Disp: , Rfl: famotidine (PEPCID) 20 MG tablet, Take 20 mg by mouth in the morning., Disp: , Rfl: Fluticasone Furoate-Vilanterol (BREO ELLIPTA IN), Inhale, Disp: , Rfl: gabapentin (NEURONTIN) 300 MG capsule, Take 400 mg by mouth in the morning and 400 mg in the evening and 400 mg before bedtime., Disp: , Rfl: hydroCHLOROthiazide 25 MG tablet, Take 25 mg by mouth 1 (one) time each day, Disp: , Rfl: LORazepam (ATIVAN) 0.5 MG tablet, TAKE 1 TABLET(0.5 MG) BY MOUTH EVERY 8 HOURS NEEDED FOR ANXIETY, Disp: , Rfl: losartan (COZAAR) 100 MG tablet, Take 100 mg by mouth in the morning., Disp: , Rfl: Magnesium Oxide -Mg Supplement 250 MG tablet, , Disp: , Rfl: omeprazole (PriLOSEC) [address] capsule, Take 40 mg by mouth, Disp: , Rfl: pyridoxine (VITAMIN B-6) 25 MG tablet, Take 25 mg by mouth 1 (one) time each day, Disp: , Rfl: traZODone (DESYREL) 150 MG tablet, TAKE 1 TABLET(150 MG) BY MOUTH AT BEDTIME, Disp: , Rfl: MEDICATION REVIEW: I have reviewed the patient's current medications. ALLERGIES: is allergic to pollen extract. PHYSICAL EXAM: BP 126/64 Constitutional: No apparent distress Cardiovascular: No friction rub. Pulmonary/Chest: No rales. Abdominal: Soft and non-tender. Extremities: Edema None Psych: AAOX3. LABS: LABORATORY REVIEW: I have reviewed the labs noted above as well as in the chart, in CIS and in Care Everywhere. DOCUMENTATION REVIEW: I have reviewed the applicable outside notes located in the chart, in CIS and in Care Everywhere. ASSESSMENT: 1. Stage 3b chronic kidney disease (HCC) 2. Hypertension Ms. Fragoso is here to establish care for chronic kidney disease stage IIIb without proteinuria. Baseline creatinines appear to range between 1.4-1.6 since at least 2022. I suspect that her chronic kidney disease is multifactorial and related to hypertension, obesity, and prior SILAS. Her blood pressureis under excellent control today and I do not see nephrotoxins noted on her medication list. There are no changes necessary at present. We will continue to follow her with supportive renal care and monitoring. We did spend some time on chronic kidney disease education today. This includes the importance of maintaining an adequate blood pressure, heart healthy well- balanced diet, and weight loss and exercise as tolerated. I have also encouraged her to continue to avoid NSAIDs. It was a pleasure to meet Kiya today. Thank you for allowing me to participate in her care. She gets renal function checked every 3 months with her PCP. If her next labs are stable I will see her again in 6 months time for follow-up. She can be seen sooner as needed. Please feel free to call with questions or concerns. Orders Placed This Encounter CBC PTH, intact Renal function panel Urine Albumin / Creatinine Ratio Vitamin D 25 hydroxy documented in this encounter Plan of Treatment Upcoming Encounters Date Type Department Care Team (Late st Contact Info) Description 12/05/2024 11:30 AM EDT Office Visit [facility] [address] [phone] Hortensia Ball DO [address] [place] [phone] Scheduled Orders Name Type Priority Associated Diagnoses Orde r Schedule CBC Lab Routine Stage 3b chronic kidney disease (HCC) Expected: 11/30/2024 (Approximate), Expires: 06/30/2025 PTH, intact Lab Routine Stage 3b chronic kidney disease (HCC) Expected: 11/30/2024 (Approximate), Expires: 06/30/2025 Renal function panel Lab Routine Stage 3b chronic kidney disease (HCC) Expected: 11/30/2024 (Approximate), Expires: 06/30/2025 Urine Albumin / Creatinine Ratio Lab Routine Stage 3b chronic kidney disease (HCC) Expected: 11/30/2024 (Approximate), Expires: 06/30/2025 Vitamin D 25 hydroxy Lab Routine Stage 3b chronic kidney disease (HCC) Expected: 11/30/2024 (Approximate), Expires: 06/30/2025 documented as of this encounter Visit Diagnoses Diagnosis Stage 3b chronic kidney disease (HCC)- Primary Hypertension documented in this encounter Care Teams Electric Truck Crane Operator Relationship Specialty Start Date End Date Callie Lawson FNP [address] [place] [address] PCP - General Nurse Practitioner 05/02/24 documented as of this encounter
--- OUTSIDE RECORDS SUMMARY | 2024-06-13 15:55 | XMS_ITS | Encounter Summary ---
Author Organization [employer] Address 75 [facility] 7t [place] [address] Care Team Providers Care Manager Star Name Role Phone Callie Lawson Primary Care Provider [phone] Encounter Details Date Type Department Care Team ([facility] Contact Info) Description 04/11/[address] 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. Pts documented in this encounter Plan of Treatment Not on file documented as of this encounter Visit Diagnoses Not on filedocumented in this encounter Care Teams Manager Star Relationship Specialty Start Date End Date Callie Lawson FNP [address] [place] [address] PCP - General Family Medicine 10/14/22 documented as of this encounter
--- OUTSIDE RECORDS SUMMARY | 2024-06-13 15:55 | XMS_ITS | Encounter Summary ---
Author Organization [employer] Address 75 [facility] 7t [place] [address] Care Team Providers Care Circuit Breaker Mechanic Name Role Phone Callie Lawson Primary Care Provider [phone] Encounter Details Date Type Department Care Team ([facility] Contact Info) Description 10/19/2023 Telephone [facility] [address] [place] [phone] Callie Lawson FNP [address] [place] [address] Social History Tobacco Use Types Packs/Day Years [...] the past 12 months, has t he [employer], gas, oil or water company threatened to [...] expiring. Please use today's date. Fax # [phone] Order was for physical therapy for balance problems. documented in this encounter Plan of Treatment Not on file documented as of this encounter Visit Diagnoses Not on filedocumented in this encounter Care Teams Circuit Breaker Mechanic Relationship Specialty Start Date End Date Callie Lawson FNP [address] [place] [address] PCP - General Family Medicine 10/14/22 documented as of this encounter
--- OUTSIDE RECORDS SUMMARY | 2024-06-13 15:55 | XMS_ITS | Encounter Summary ---
Author Organization [employer] Address 75 [facility] 7t [place] [address] Care Team Providers Care Captain Waiter/Waitress Name Role Phone Callie Lawson Primary Care Provider [phone] Encounter Details Date Type Department Care Team ([facility] st Contact Info) Description 05/24/2024 Orders Only [facility] [address] [place] [phone] Callie Lawson FNP [address] [place] [address] Social History Tobacco Use Types Packs/Day Years [...] the past 12 months, has t he [employer], gas, oil or water company threatened to [...] Procedure Name Priority Date/Time Associated Diagnosis Comments CULTURE, AEROBIC BACTERIA Routine 05/24/2024 3:09 PM EST documented in this encounter Results * Culture, Aerobic Bacteria (05/24/2024 3:09 PM EST) Culture, Aerobic Bacteria SEE NOTE [facility] Comment: ??CULTURE, AEROBIC BACTERIA ?Micro Number: ?[id number] ??Test Status: ? Final ??Specimen Source: ?? Breast, left ??Specimen Quality: ??Adequate ??Result: ?No Growth 05/24/2024 3:09 PM EST 05/24/2024 3:10 PM EST Narrative [facility] - 05/27/2024 8:39 AM EST FASTING:UNKNOWN FASTING: UNKNOWN Callie [facility] - GENERAL ORDER TREY Final Result [facility] [address], [place] [address] [email or web address] [facility] [address] [place] [address] documented in this encounter Visit Diagnoses Not on filedocumented in this encounter Care Teams Captain Waiter/Waitress Relationship Specialty Start Date End Date Callie Lawson FNP [address] [place] [address] PCP - General Family Medicine 10/14/22 documented as of this encounter
--- OUTSIDE RECORDS SUMMARY | 2024-06-13 15:55 | XMS_ITS | Encounter Summary ---
Author Organization [employer] Address 75 [facility] 7t [place] [address] Care Team Providers Care Second Hand Name Role Phone Callie Lawson Primary Care Provider [phone] Reason for Visit * Reason Comments Med Refill Encounter Details Date Type Department Care Team ([facility] Contact Info) Description 06/07/2024 Refill [facility] [address] [place] [phone] Callie Lawson FNP [address] [place] [address] Anxiety Social History Tobacco Use Types Packs/Day Years [...] the past 12 months, has t he [employer], gas, oil or water company threatened to [...] encounter Miscellaneous Notes * Telephone Encounter - Daniela Rivera LPN - 06/07/2024 10:51 AM EDT PCP: JENNI Ortega Last in-person office visit: 05/24/2024 JENNI Ortega PDMP last fill: 05/08/24 5 days Refill due: 05/13/24 Last tox screen date: No results found for: AMPHETAMINES , BARBITURATES , BENZODIAZEPI , BUPRENORPHIN , COCAINE , FENTANYL , HEROINMETAB , MARIJUANA , MDMA , MEPROBAMATE , METHADONE , NICOTINEMET , OPIATES , PHENCYCLIDIN , TAPENTADOL , TRAMADOL , ZOLPIDEM Assessment: [x] Protocol passed [] Contract due [] Toxicology due [] Appointment due [] PDMP red flags [] Care plan adjustment needed Plan: [x] Please approve refill for 5 days [] Appointment with nursing: [] Appointment with JENNI Ortega: Future Appointments Date Time Provider Department [place] 06/27/2024 11:00 AM WENDY [facility] 07/11/2024 11:00 AM WENDY [facility]astume [facility] Comments: documented in this encounter Plan of Treatment Not on file documented as of this encounter Visit Diagnoses Diagnosis Anxiety Anxiety state, unspecified documented in this encounter Care Teams Second Hand Relationship Specialty Start Date End Date Callie Lawson FNP [address] [place] [address] PCP - General Family Medicine 10/14/22 documented as of this encounter
--- OUTSIDE RECORDS SUMMARY | 2024-06-13 15:55 | XMS_ITS | Encounter Summary ---
Author Organization [employer] Address [address] [facility] 7 [place] [address] Care Team Providers Care Evidence Custodian Name Role Phone Callie Lawson Primary Care Provider [phone] Reason for Referral * Consultation (Routine) - Authorized Specialty Diagnoses / Procedures Referred By Contkit t Referred To Contact Diagnoses Stage 3 chronic kidney disease, unspecified whether stage 3a or 3b CKD (CMS/HCC) Callie Lawson FNP [address] [place] [address] Phone: tel: fax: Yash Meza [address] [place] [address] Phone: tel: fax: Referral ID Status Reason Start Date Expiration Date Visits Requested Visits Authorized [id number] Authorized Specialty Services Required 04/24/2024 04/24/2025 6 6 Encounter Details Date Type Department Care Team ([facility] st Contact Info) Description 04/23/2024 Orders Only [facility] [address] [place] [phone] Callie Lawson FNP [address] [place] [address] Stage 3 chronic kidney disease, unspecified whether [...] Hypercalcemia documented in this encounter Care Teams Evidence Custodian Relationship Specialty Start Date End Date Callie Lawson FNP [address] [place] [address] PCP - General Family Medicine 10/14/22 documented as of this encounter
--- OUTSIDE RECORDS SUMMARY | 2024-06-13 15:55 | XMS_ITS | Data Portability ---
Author Organization Formerly [facility] [employer] Address [address] [place] [address] [place] [address] Care Team Providers Care Masseur/Masseuse Name Role Phone MARK WINTERS Referring Provider Unavailable CORRY AMATO Primary Care Provider [phone] Assessment Encounter Date Assessment Date Assessment LastModified [...] on rate), blood - R70.0 2022 023 [employer] [facility] (Centralized Electronic Ordering - All Locations), Patient Can Go To The Location Of Their Choice, [address] 08:09:47 calcium, serum or plasma - E83.50 2022 023 [employer] [facility] (Centralized Electronic Ordering - All Locations), [...] screen, EIA/ollie, serum - A69.20 2022 023 [facility] (Centralized [facility] Ordering - All Locations), Patient Can Go To The Location Of Their Choice, 3 12:10:22 C-reactive protein, quantitativ e, serum or plasma - R79.82 2022 023 [facility]), Patient Can Go To The Location Of Their Choice, 19:45:12 CK (creatine kinase), total, serum - R74.8 2022 023 [facility] - [facility] Locations), Patient Can Go To The Location Of Their Choice, 19:45:11 selenium, serum or plasma - E59 2022 023 [facility] (Centralized [facility] Ordering - All Locations), Patient Can Go To The Location Of Their Choice, 12:10:22 testosteron e, total, serum - Z13.29 2022 023 [facility] - [facility] Locations), Patient Can Go To The Location Of Their Choice, 20:42:04 vitamin B6 (pyridoxine ), plasma - E67.2 2022 023 [facility] - [facility] Locations), Patient Can Go To The Location Of Their Choice, 3 16:07:37 homocystein e, serum or plasma - D51.9 2022 023 [facility] - [facility] Locations), Patient Can Go To The Location Of Their Choice, 3 19:12:18 mma (methylmalo skip acid), serum - D51.9 2022 023 [facility] - [facility] Locations), Patient [...] By Organization Details Last Modified Time 02/02/2023 69198 Discussion acros s issues of diagnoses and management and same day associated chart review and management greater than 50% greater than 60 minutes mrossen Not available 02/02/2023 10:17:50 02/21/2023 86400 Discussion acros s issues of diagnoses and [...] Go To The Location Of Their Choice, [address] 02/04/2023 19:12:18 02/05/2002/04/2023 PTH, INTAC T PTH, intact 79 pg/mL (15-65 ) high Not Available [facility] (Centralized Electronic Ordering - All Locations) Patient Can Go To The Location Of Their Choice, [id number] 02/04/2023 19:27:51 02/05/2002/04/2023 CALCI UM calcium 9.9 [...] by [facility], [address] [place] [address] Not Available [facility] (Centralized Electronic Ordering - [...] . Testi ng perfo rmed by the [employer] ex 2200 multi plex flow [...] e delphine cteri stics deter mined by [employer]. It has not been clear ed or appro piotr by the Food and Drug Admin istra tion. Defic iency : <3.4 Mariah nal: 3.4 - 5.1 Adequ ate: >5.1 Test perfo rmed at [facility] , [address] [place] [address] Not Available [facility] (Centralized Electronic Ordering - All Locations) Patient Can Go To The Location Of Their Choice, [facility] 02/10/2023 16:07:37 02/05/2002/10/2023 METHY LMALO SKIP ACID, SERUM methylmaloni c acid, serum 304 Refer ence range : 0 to 378 Unit: nmol/ L (NOTE ) This test was devel oped and its perfo rmanc e delphine cteri stics deter mined by [facility]. It has not been clear ed or appro piotr by the Food and Drug Admin istra tion. [facility] , [address] [place] [address] Not Available [facility] (Centralized Electronic Ordering - All Locations) Patient Can Go To The Location Of Their Choice, [facility] 02/10/2023 17:06:12 02/05/2002/13/2023 MAGNE SIUM RBC magnesium, RBC 4.2 Refer ence range : 3.7 to 7.0 Unit: mg/dL (NOTE ) This test was devel oped and its perfo rmanc e delphine cteri stics deter mined by [facility]. It has not been clear ed or appro piotr by the Food and Drug Admin istra tion. Ple ase note refer ence inter chio brewster e Test perfo rmed at [facility] , [address] [place] [address] Not Available [facility] (Centralized Electronic Ordering - All Locations) Patient Can Go To The Location Of Their Choice, [facility] 02/13/2023 21:05:42 Result Notes None recorded. Medical [...] Updated DateTime 02/02/2023 154.94 cm 48.4 kg/m2 448334.6 5 g 12 /min [facility] 02/02/2023 08:51:22 Social History Question Answer Notes LastModified by Organizat ion Details LastModified Time Tobacco Smoking Status Never Smoker [facility] 02/02/2023 08:56:31 What Is Your Level Of Alcohol Consumption? None Information not available 02/02/2023 What Is Your Level Of Caffeine Consumption? Moderate 2 Information not available 02/02/2023 What Is The Highest Grade Or Level Of School You Have Completed Or The Highest Degree You Have Received? [id number] Information not available 02/02/2023 Which Of Your [...] available 10/2022 08:56:05 Medical History Condition Response Heartburn, acid reflux, GERD Y High Blood Pressure or Hypertension Y Asthma Y Gynecological HistoryNo gynecological history recorded. Obstetrics History GPAL:G 0 P 0 0 0 0 Past Encounters Encounter ID Performer Location Encounter Start Date Encounter Closed Date Diagnosis/Indication Diagnosis SNOMED-CT Code Diagnosis ICD10 Code Diagnosis Note [id number] Yash Castillo MD [facility] [address] [place] [address] [place] [address] 02/02/2023 08:38:31 02/02/2023 10:43:30 Idiopathic peripheral neuropathy 79099449 G60.3 [id number] Yash Castillo MD [facility] [address] [place] [address] [place] [address] 02/21/2023 11:18:04 02/21/2023 17:14:29 Idiopathic peripheral neuropathy 93585714 G60.3 Health Concerns Section Related Observation LastModified by Organization Detai ls LastModified Time None Recorded Concern Status LastModified by Organization Details LastModified Time None Recorded Advance Directives Directive None Recorded Payers Encounter Date Sequence Insurance Name Policy Number Policy [place] Covered Member ID [place] Member ID Guarantor Name 02/02/2023 1 [facility] [employer] (MEDICARE REPLACEMENT PPO) Kiya Fragoso [id number] Kiya Fragoso 02/21/2023 1 [employer] [facility] [employer] (MEDICARE REPLACEMENT PPO) Kiya Fragoso [id number] Kiya Fragoso Notes Date Note Type Note [...] passing ~3 years ago. Yash Castillo MD [address] [place] [address], [phone] 02/02/2023 10:20:00 02/21/2023 text/html Neurology follow -up [...] passing ~3 years ago. Yash Castillo MD [address] [place] [address] [place], [address], [facility] Neurology [facility] 02/21/2023 12:36:41 OBGyn Episode No OBEpisode recorded.
--- OUTSIDE RECORDS SUMMARY | 2024-06-13 15:55 | XMS_ITS | Clinical Summary ---
Author Organization [facility] Address [address] [place] [address] Care Team Providers Care Solar Systems Designer Name Role Phone Unknown Primary Care Provider [phone] Social History Tobacco Use Types Packs/Day Years [...] age to complete this topic Care Teams Solar Systems Designer Relationship Specialty Start Date End Date Unknown Unknow Provider Address PCP - General 07/27/20
--- OUTSIDE RECORDS SUMMARY | 2024-06-13 15:55 | XMS_ITS | Clinical Summary ---
Author Organization [facility], Address [address] [place] [phone] Phone Care Team Providers Care Stacker And Sorter Operator Name Role Phone Callie Lawson JENNI Primary Care Provider [phone] Allergies Active Allergy Reactions Criticality Noted Date Comments Pollen Extract 06/22/2022 Medications Cetirizine HCl 10 MG capsule Take by oral route. Active famotidine (PEPCID) 20 MG tablet Take 20 mg by mouth in the morning. 4 Active gabapentin (NEURONTIN) 300 MG capsule Take 400 mg by mouth in the morning and 400 mg in the evening and 400 mg before bedtime. Active hydroCHLOROthiaz aldo 25 MG tablet Take 25 mg by mouth 1 (one) time each day 3 Active LORazepam (ATIVAN) 0.5 MG tablet TAKE 1 TABLET(0.5 MG) BY MOUTH EVERY 8 HOURS NEEDED FOR ANXIETY 4 Active losartan (COZAAR) 100 MG tablet Take 100 mg by mouth in the morning. 4 Active omeprazole (PriLOSEC) [address] capsule Take 40 mg by mouth 4 Active traZODone (DESYREL) 150 MG tablet TAKE 1 TABLET(150 MG) BY MOUTH AT BEDTIME 4 Active Magnesium Oxide -Mg Supplement 250 MG tablet 5 Active Fluticasone Furoate-Vilanter ol (BREO ELLIPTA IN) Inhale Active albuterol HFA (PROVENTIL HFA;VENTOLIN HFA) 108 (90 Base) MCG/ACT inhaler Inhale 2 puffs every 6 (six) hours if needed for wheezing Active pyridoxine (VITAMIN B-6) 25 MG tablet Take 25 mg by mouth 1 (one) time each day Active cholecalciferol (VITAMIN D-3) 25 MCG (1000 UT) capsule Take 1,000 Units by mouth 1 (one) time each day Active Magnesium 250 MG tablet Take 250 mg by mouth in the morning. 4 05/31/19 25 Discontinu ed(Duplica te order (does not appear on AVS)) predniSONE (DELTASONE) 20 MG tablet 05/31/19 25 Discontinu ed(Therapy completed) ondansetron ODT (ZOFRAN-ODT) 4 MG dispersible tablet 5 05/31/19 25 Discontinu ed(Therapy completed) Active Problems Problem Noted Date Diagnosed Date [...] Encounters Date Type Department Care Team Description 05/30/2024 10:00 AM EST [facility] Visit [facility] [address] [address] Hortensia Ball DO Stage 3b chronic kidney disease (HCC) (Primary Dx); Hypertension 05/04/2024 Office Communication [facility], [address] [place] [id number] Dawna Bedolla MA 05/02/2024 Documentation Only [facility], [address] [place] [phone] Dawna Bedolla MA from Last 3 Months Immunizations Name Administration Dates Next Due Influenza (IM) Preservative Free 12/29/2023,01/26 Influenza, Quadrivalent, Pre servative Free 01/02/2020,01/05/2019,12/13/2017,02/02,12/04/2015,12/03/2014 Pneumococcal Polysaccharide 02/06/2021 Shingrix 05/24/2019,10/20/2018,03/30/2018 Tdap 03/05/2014 Zoster, Unspecified 05/24/2019 Family History Medical History Relation Comments COPD Mother Cancer Sister Relation Status Comments Father Mother Sister Social History Tobacco Use Types Packs/Day Years [...] on file Sexual Orientation Not on file Last Filed Vital Signs Vital Sign Reading Time Taken Comments Blood Pressure 126/64 05/30/2024 10:20 AM EST Pulse - - Temperature - - Respiratory Rate - - Oxygen Saturation - - Inhaled Oxygen Concentration - - Weight - - Height - - Body Mass Index - - Plan of Treatment Upcoming Encounters Date Type Department Care Team (Late st Contact Info) Description 12/05/2024 11:30 AM EDT Office Visit [facility] [address] [place] [address] Hortensia Ball DO [address] [place] [address] Health Maintenance Due Date Last Done Comments [...] patient's age to complete this topic Insurance , [address] [id number] [facility] MEDICARE [place]ICAID [place] Care Teams Stacker And Sorter Operator Relationship Specialty Start Date End Date Callie Lawson FNP [address] [place] [address] PCP - General Nurse Practitioner 05/02/24
--- OUTSIDE RECORDS SUMMARY | 2024-06-13 15:55 | XMS_ITS | Encounter Summary ---
Author Organization [employer] Address [address] [facility] 7t [place] [address] Care Team Providers Care School Counsellor Name Role Phone Callie Lawson Primary Care Provider [phone] Encounter Details Date Type Department Care Team ([facility] Contact Info) Description 11/07/2023 Telephone [facility] [address] [place] [phone] Callie Lawson FNP [address] [place] [address] Social History Tobacco Use Types Packs/Day Years [...] Please reach out to the pt @ #[phone] documented in this encounter Plan of Treatment Not on file documented as of this encounter Visit Diagnoses Not on filedocumented in this encounter Care Teams School Counsellor Relationship Specialty Start Date End Date Callie Lawson FNP [address] [place] [address] PCP - General Family Medicine 10/14/22 documented as of this encounter
--- OUTSIDE RECORDS SUMMARY | 2024-06-13 15:55 | XMS_ITS | Encounter Summary ---
Author Organization [employer] Address [address] [facility] 7t [place] [address] Care Team Providers Care Field Instructor Name Role Phone Callie Lawson Primary Care Provider [phone] Farrah Jackman Unavailable Encounter Details Date Type Department Care Team ([facility] st Contact Info) Description 07/13/2023 Telephone [facility] [address] [facility] [address] [place] [address] Callie Lawson FNP [address] [place] [address] Social History Tobacco Use Types Packs/Day Years [...] requesting we send her referral to an radiology specialist closer to her, she said she found one in [facility], she wasn't sure of the name, but their phone number is [phone] documented in this encounter Plan of Treatment Not on file documented as of this encounter Visit Diagnoses Not on filedocumented in this encounter Care Teams Field Instructor Relationship Specialty Start Date End Date Callie Lawson FNP [address] [place] [address] PCP - General Family Medicine 10/14/22 [place] [address] 01/27/23 10/11/23 documented as of this encounter
--- OUTSIDE RECORDS SUMMARY | 2024-06-13 15:55 | XMS_ITS | Encounter Summary ---
Author Organization [employer] Address [address] [facility] 7t [place] [address] Care Team Providers Care Technology Architect Name Role Phone Callie Lawson Primary Care Provider [phone] Encounter Details Date Type Department Care Team ([facility] st Contact Info) Description 05/24/2024 Telephone [facility] [address] [address] Callie Lawson FNP [address] [place] [address] Social History Tobacco Use Types Packs/Day Years [...] the past 12 months, has t he [employer], gas, oil or water company threatened to [...] Telephone Encounter - Daniela Rivera LPN - 05/24/2024 11:07 AM EST Spoke with Pt, states she has a small area under her left breast that is very sore. She has been keeping it clean. She states she put some Vaseline on it and the area opened up and drained puss. Areais red and painful. Pt states she had breast cancer on that side. Scheduled OV for tomorrow morningwith PCP. * Telephone Encounter - Jacki Segundo - 05/24/2024 10:58 AM EST Patient is calling complaining about pain under her left breast, she said there is a lump with pussand it is very painful. Patient does have a history of breast cancer. Call back #[phone] documented in this encounter Plan of Treatment Not on file documented as of this encounter Visit Diagnoses Not on filedocumented in this encounter Care Teams Technology Architect Relationship Specialty Start Date End Date Callie Lawson FNP [address] [place] [address] PCP - General Family Medicine 10/14/22 documented as of this encounter
--- OUTSIDE RECORDS SUMMARY | 2024-06-13 15:55 | XMS_ITS | Encounter Summary ---
Author Organization [employer] Address [address] [facility] 7t [place] [address] Care Team Providers Care Automation And Controls Instructor Name Role Phone Callie Lawson Primary Care Provider [phone] Farrah Jackman Unavailable Encounter Details Date Type Department Care Team ([facility] [address] Contact Info) Description 12/24/2022 Orders Only [facility] [address] [place] [phone] Callie Lawson FNP [address] [place] [address] Abnormal renal function finding (Primary Dx) Social [...] Primary documented in this encounter Care Teams Automation And Controls Instructor Relationship Specialty Start Date End Date Callie Lawson FNP [address] [place] [address] PCP - General Family Medicine 10/14/22 Farrah Jackman [facility] [place] [address] 01/27/23 10/11/23 documented as of this encounter
--- OUTSIDE RECORDS SUMMARY | 2024-06-13 15:55 | XMS_ITS | Encounter Summary ---
Author Organization [employer] Address [address] [facility] 7t [place] [address] Care Team Providers Care Litharge Mill Operator Name Role Phone Callie Lawson Primary Care Provider [phone] Encounter Details Date Type Department Care Team ([facility] Contact Info) Description 03/06/[address] [facility] [address] [place] [phone] Callie Lawson FNP [address] [place] [address] Social History Tobacco Use Types Packs/Day Years [...] When this has been done. Call back #[phone] documented in this encounter Plan of Treatment Not on file documented as of this encounter Visit Diagnoses Not on filedocumented in this encounter Care Teams Litharge Mill Operator Relationship Specialty Start Date End Date Callie Lawson FNP [address] [place] [address] PCP - General Family Medicine 10/14/22 documented as of this encounter
--- OUTSIDE RECORDS SUMMARY | 2024-06-13 15:55 | XMS_ITS | Encounter Summary ---
Author Organization [employer] Address [address] [place] [address] 7t [place] [address] Care Team Providers Care Gas Meter Reader Name Role Phone Callie Lawson Primary Care Provider Farrah Jackman Unavailable Reason for Referral * Consultation (Routine) - Canceled Specialty Diagnoses / Procedures Referred By Contkit t Referred To Contact Diagnoses Hematuria, unspecified type Callie Lawson FNP [address] [place] [address] Phone: tel: fax: Provider, Not In System Referral ID Status Reason Start Date Expiration Date Visits Requested Visits Authorized [id number] Canceled Specialty Services Required 08/21/2023 08/20/2024 1 1 Encounter Details Date Type Department Care Team ([facility] st Contact Info) Description 08/17/2023 Orders Only [facility] [address] [place] [phone] Callie Lawson FNP [address] [place] [address] Hematuria, unspecified type (Primary Dx); Obesity (BMI [...] knee documented in this encounter Care Teams Gas Meter Reader Relationship Specialty Start Date End Date Callie Lawson FNP [address] [place] [address] PCP - General Family Medicine 10/14/22 aFrrah Jackman [address] [place] [address] 01/27/23 10/11/23 documented as of this encounter
--- OUTSIDE RECORDS SUMMARY | 2024-06-13 15:55 | XMS_ITS | Encounter Summary ---
Author Organization [employer] Address [address] [facility] 7t [place] [address] Care Team Providers Care Power Technician Name Role Phone Callie Lawson Primary Care Provider [phone] Farrah Jackman Unavailable Encounter Details Date Type Department Care Team ([facility] Contact Info) Description 10/14/2022 Orders Only [facility] [address] [facility] [address] [place] [address] Marli Cornejo MD [address] [place] [address] Social History Tobacco Use Types Packs/Day Years [...] on filedocumented in this encounter Care Teams Power Technician Relationship Specialty Start Date End Date Callie Lawson FNP [address] [place] [address] PCP - General Family Medicine 10/14/[address] [place] [address] 01/27/23 10/11/23 documented as of this encounter
--- OUTSIDE RECORDS SUMMARY | 2024-06-13 15:55 | XMS_ITS | Encounter Summary ---
Author Organization [employer] Address [address] [facility] 7t [place] [address] Care Team Providers Care Clerical Manager Name Role Phone Callie Lawson JENNI Primary Care Provider [phone] Farrah Jackman Unavailable Reason for Visit * Reason Comments Med Refill Encounter Details Date Type Department Care Team ([facility] st Contact Info) Description 10/14/2022 Refill [facility] [address] [facility] [address] [place] [address] Sushila Abrams FNP [address] [place] [address] Social History Tobacco Use Types Packs/Day Years [...] on filedocumented in this encounter Care Teams Clerical Manager Relationship Specialty Start Date End Date Callie Lawson FNP [address] [place] [address] PCP - General Family Medicine 10/14/22 Farrah Jackman [address] [place] [address] 01/27/23 10/11/23 documented as of this encounter
--- OUTSIDE RECORDS SUMMARY | 2024-06-13 15:55 | XMS_ITS | Clinical Summary ---
Author Organization [employer] Address [address] [facility] 7[address] [place] [address] Care Team Providers Care Strip Presser Name Role Phone Callie Lawson JENNI Primary Care Provider [phone] Allergies Active Allergy Reactions Criticality Noted Date Comments Pollen Extract 06/22/2022 Medications * This document contains information received from the source organization and may not represent a complete record from that organization. Incontinence Supply Disposable (Comfort Protect Adult Diap XL) miscIndications :Mixed stress and urge urinary incontinence 1 each if needed in the morning, at noon, and at bedtime (For incontinence). 90 each 5 07/25/19 23 Active albuterol 108 (90 Base) MCG/ACT inhaler Inhale 2 puffs every 6 (six) hours if needed for wheezing. 18 g 08/15/19 24 Active cetirizine (ZyrTEC) 10 MG tablet Take 1 tablet (10 mg) by mouth Once per day. 90 tablet 08/15/19 24 Active famotidine (Pepcid) 20 MG tablet Take 1 tablet (20 mg) by mouth Once per day. 90 tablet 08/15/19 24 Active Fluticasone Furoate-Vilante rol 100-25 MCG/ACT aerosol powderIndicatio ns:Intermittent asthma without complication, unspecified asthma severity Inhale 1 Inhalation Once per day. 1 puff once a day 1 each 08/15/19 24 Active hydroCHLOROthia zide (HYDRODiuril) 25 MG tablet Take 1 tablet (25 mg) by mouth Once per day. 90 tablet 08/15/19 24 Active losartan (Cozaar) 100 MG tablet Take 1 tablet (100 mg) by mouth Once per day. 90 tablet 3 08/15/19 Active Multiple Vitamin (Vitamin E/Folic Acid/B-6/B-12) capsule Take 1 capsule by mouth Once per day. 100 capsule 3 08/15/19 24 Active traZODone (Desyrel) 150 MG tablet TAKE 1 TABLET(150 MG) BY MOUTH AT BEDTIME 90 tablet 3 08/15/19 24 Active omeprazole (PriLOSEC) [address] capsule Take 1 capsule (40 mg) by mouth before breakfast. Do not crush or chew. 90 capsule 01/12/20 24 Active magnesium 250 MG tabletIndicatio ns:Cramping of feet Take 1 tablet (250 mg) by mouth Once per day. 90 tablet 3 01/12/20 Active Respiratory Therapy Supplies (Nebulizer/Tubi ng/Mouthpiece) kitIndications: Dyspnea Use with prescribed medication. 1 kit 2 03/05/20 Active albuterol (2.5 MG/3ML) 0.083% nebulizer solutionIndicat ions:Moderate persistent asthma with exacerbation Take 3 mL (2.5 mg) by nebulization every 4 (four) hours if needed for wheezing for up to 2 days. 12 mL 1 03/05/20 Active gabapentin (Neurontin) 400 MG capsule Take 1 capsule (400 mg) by mouth 3 times daily. 90 capsule 11 04/20/19 25 2025 Active lidocaine (Xylocaine) 5 % ointmentIndicat ions:Neuropathy Apply topically if needed in the morning, at noon, and at bedtime (pain). 50 g 04/20/19 25 Active LORazepam (Ativan) 0.5 MG tabletIndicatio ns:Anxiety TAKE 1 TABLET(0.5 MG) BY MOUTH EVERY 8 HOURS FOR UP TO 10 DAYS NEEDED FOR ANXIETY 14 tablet 1 06/08/19 25 Active LORazepam (Ativan) 0.5 MG tabletIndicatio ns:Anxiety TAKE 1 TABLET(0.5 MG) BY MOUTH EVERY 8 HOURS NEEDED FOR ANXIETY 14 tablet 1 03/16/20 24 2024 Discontinued cephalexin (Keflex) 500 MG capsuleIndicati ons:Abscess Take 1 capsule (500 mg) by mouth 3 times daily for 10 days. 30 capsule 05/24/19 25 2024 Active Problems Problem Noted Date Diagnosed Date [...] alternative to albuterol. - Follow up with dude ranch manager, last appointment one year prior - Discussed [...] water aerobics Hypertension 06/22/2022 Anxiety 06/22/2022 Encounters * This document contains information received from the source organization and may not represent a complete record from that organization. Date Type Department Care Team Description 06/07/[address] [address] Callie Lawson FNP Anxiety 05/31/2024 11:30 AM EST [facility] [address] [address] Carla Boogie 05/24/2024 1:40 PM EST Office Visit [address] [address] Callie Lawson FNP Abscess (Primary Dx); Current mild episode of major depressive disorder without prior episode (CMS/HCC) 05/24/2024 Orders Only [address] [address] Callie Lawson FNP 05/24/[address] [address] Callie Lawson FNP 05/09/2024 9:30 AM EST [facility] [address] [address] Carla Boogie 04/25/2024 11:00 AM EST [facility] [address] [address] Carla Boogie 04/23/2024 Orders Only [address] [address] Callie Lawson FNP Stage 3 chronic kidney disease, unspecified whether stage 3a or 3b CKD (CMS/HCC) (Primary Dx); Hypercalcemia 04/20/2024 10:40 AM EST Office Visit [address] [address] Callie Lawson FNP Prediabetes (Primary Dx); Neuropathy 04/11/[address] [address] Callie Lawson FNP 03/16/[address] [address] Callie Lawson FNP Anxiety from Last 3 Months Immunizations Name Administration [...] (249 lb) 05/24/2024 1:32 PM EST Height 152.4 cm (5') 12/19/2023 3:40 PM EDT Body Mass Index 48.63 12/19/2023 3:40 PM EDT Plan of Treatment [...] AEROBIC BACTERIA Routine 05/24/2024 3:09 PM EST URIC ACID Routine 04/20/2024 11:19 AM EST [...] TOMOSYNTHESIS BILATERAL Routine 03/08/2024 11:30 AM EST from Last 3 Months or Most Recently Relevant to Health Maintenance Results * Culture, Aerobic Bacteria (05/24/2024 3:09 PM EST) Culture, Aerobic Bacteria SEE NOTE [employer] [facility] [employer] [facility] Comment: ??CULTURE, AEROBIC BACTERIA ?Micro Number: ?[id number] ??Test Status: ? Final ??Specimen Source: ?? Breast, left ??Specimen Quality: ??Adequate ??Result: ?No Growth 05/24/2024 3:09 PM EST 05/24/2024 3:10 PM EST Narrative [facility] - 05/27/2024 8:39 AM EST FASTING:UNKNOWN FASTING: UNKNOWN Callie ARTEAGA LAB MICROBIOLOGY - GENERAL ORDER TREY Final Result Performing Organization Address [facility] de Phone Number [facility] [address], [place] [address] [employer] [place] [facility] [address] [place] [address] * Albumin, Random Urine W/Creatinine (04/20/2024 11:19 AM EST) Creatinine, Random Urine 96 20 - 275 mg/dL [facility] [place] [facility] Albumin, Urine <0.2 See Note: mg/dL [facility] [place] [facility] Comment: Reference Range: Reference Range Not established Albumin/Creatinin e Ratio, Random Urine NOTE <30 mg/g creat [facility] [place] [facility] Comment: NOTE: The urine albumin value is [...] 7:23 PM EST FASTING:NO FASTING: NO Callie ARTEAGA LAB URINE ORDERABLES Final Resul t Performing Organization Address [facility] Co de Phone Number [facility] [address], [place] [address] [employer] [place] [facility] [address] [place] [address] * (ABNORMAL) CBC (04/20/2024 11:19 AM EST) Pathologist [facility] White Blood Cell Count 10.3 3.8 - 10.8 Thousand/ uL [facility] [facility] [place] [employer] Red Blood Cell Count 4.83 3.80 - 5.10 Million/u L [facility] [facility] [place] [employer] Hemoglobin 13.7 11.7 - 15.5 g/dL [facility] [facility] [place] [employer] Hematocrit 43.5 35.0 - 45.0 % [facility] [place] [employer] MCV 90.1 80.0 - 100.0 fL [facility] [place] [employer] MCH 28.4 27.0 - 33.0 pg [facility] [facility] [place] [employer] MCHC 31.5(L) 32.0 - 36.0 g/dL [facility] [facility] [place] [facility] Comment: For adults, a slight decrease in the calculated MCHC value (in the range of 30 to 32 g/dL) is most likely not clinically significant; however, it should be interpreted with caution in correlation with other red cell parameters and the patient's clinical condition. RDW 12.6 11.0 - 15.0 % [facility] [facility] [place] [employer] Platelet Count 274 140 - 400 Thousand/ uL [facility] [facility] [place] [employer] MPV 10.3 7.5 - 12.5 fL [facility] [facility] [place] [employer] Blood Venous blood specimen / Unknown 04/20/2024 11:19 AM EST 04/20/2024 11:19 AM EST Narrative [facility] - 04/21/2024 7:23 PM EST FASTING:NO FASTING: NO Callie Lawson [facility] LAB BLOOD ORDERABLES Final Resul t [facility] [address], [place] [address] [employer] [place] [facility] [address] [place] [address] * Uric acid (04/20/2024 11:19 AM EST) [facility] Uric Acid 6.5 2.5 - 7.0 mg/dL [employer] [place] [facility] Comment: Therapeutic target for gout patients: <6.0 mg/dL ?? Blood Venous blood specimen / Unknown 04/20/2024 11:19 AM EST 04/20/2024 11:19 AM EST Narrative [facility] - 04/21/2024 7:23 PM EST FASTING:NO FASTING: NO Callie Lawson [facility] LAB BLOOD ORDERABLES Final Resul t Performing Organization Address [facility] Co de Phone Number [address], [place] [address] [employer] [place] [facility] [place] [phone] * Hemoglobin A1c (04/20/2024 11:19 AM EST) Hemoglobin A1c 5.4 <5.7 % of total Hgb [facility] [facility] [place] [facility] Comment: For the purpose of screening for the presence of diabetes: <5.7% ? Consistent with the absence of diabetes 5.7-6.4% ?Consistent with increased risk for diabetes ?(prediabetes) > or =6.5% ??Consistent with diabetes This assay result is consistent with a decreased risk of diabetes. Currently, no consensus exists regarding use of hemoglobin A1c for diagnosis of diabetes in children. According to [place] Diabetes Association (ADA) guidelines, hemoglobin A1c <7.0% represents optimal control in non- diabetic patients. Different metrics may apply to specific patient populations. Standards of Medical Care in Diabetes(ADA). ?? Blood Venous blood specimen / Unknown 04/20/2024 11:19 AM EST 04/20/2024 11:19 AM EST Narrative [facility] - 04/21/2024 7:23 PM EST FASTING:NO FASTING: NO Callie Lawson [facility] LAB BLOOD ORDERABLES Final Resul t Performing Organization Address [facility]/ZIP Co de Phone Number [address], [place] [address] [employer] [facility] [place] [facility] [place] [phone] * Vitamin B12 (04/20/2024 11:19 AM EST) Vitamin B12 379 200 - 1,100 pg/mL [facility] [facility] [place] [facility] Comment: Please Note: Although the reference range [...] EST FASTING:NO FASTING: NO us Callie Lawson [facility] LAB BLOOD ORDERABLES Final Resul t [facility] [address], [place] [address] [employer] [facility] [place] [facility] [address] [place] [address] * (ABNORMAL) Lipid Panel, Standard (04/20/2024 11:19 AM EST) Cholesterol, Total 210(H) <200 mg/dL [facility] [facility] [place] [facility] HDL Cholesterol 74 > OR = 50 mg/dL [facility] [facility] [place] [facility] Triglycerides 139 <150 mg/dL [facility] [place] [facility] LDL Cholesterol 111(H) mg/dL [facility] [place] [facility] Comment: Reference range: <100 Desirable range <100 mg/dL for primary prevention; ?? <70 mg/dL for patients with CHD or diabetic patients with > or = 2 CHD risk factors. LDL-C is now calculated using the Pipe-Zainab calculation, which is a validated novel method providing better accuracy than the Friedewald equation in the estimation of LDL-C. Pipe SS et al. DAINA. 2013;310(19): 2005-1898 (http://education.EpiVax/faq/XSF303) Chol/HDLC Ratio 2.8 <5.0 (calc) [facility] [place] [facility] Non-HDL Cholesterol 136(H) <130 mg/dL [facility] [place] [facility] Comment: For patients with diabetes plus 1 major ASCVD risk factor, treating to a non-HDL-C goal of <100 mg/dL (LDL-C of <70 mg/dL) is considered a therapeutic option. Blood Venous blood specimen / Unknown 04/20/2024 11:19 AM EST 04/20/2024 11:19 AM EST Narrative [facility] - 04/21/2024 7:23 PM EST FASTING:NO FASTING: NO Callie Lawson [facility] LAB BLOOD ORDERABLES Final Resul t [facility] [address], [place] [address] [facility] [facility] [place] [facility] [address] [place] [address] * (ABNORMAL) Comprehensive Metabolic Panel (04/20/2024 11:19 AM EST) Glucose 88 65 - 139 mg/dL [facility] [facility] [place] [employer] Comment: ? Non-fasting reference interval Urea Nitrogen (BUN) 24 7 - 25 mg/dL [facility] [place] [employer] Creatinine, Serum 1.47(H) 0.50 - 1.05 mg/dL [facility] [place] [facility] eGFR 39(L) > OR = 60 mL/min/1. 73m2 [facility] [facility] [place] [employer] BUN/Creatinine Ratio 16 6 - 22 (calc) [facility] [place] [employer] Sodium 140 135 - 146 mmol/L [facility] [place] [facility] Potassium 4.3 3.5 - 5.3 mmol/L [facility] [place] [facility] Chloride 100 98 - 110 mmol/L [facility] [place] [employer] Carbon Dioxide 31 20 - 32 mmol/L [facility] [place] [employer] Calcium 10.5(H) 8.6 - 10.4 mg/dL [facility] [place] [facility] Protein, Total 7.4 6.1 - 8.1 g/dL [facility] [place] [facility] Albumin 4.4 3.6 - 5.1 g/dL [facility] [place] [facility] Globulin 3.0 1.9 - 3.7 g/dL (calc) [facility] [place] [employer] Albumin/Globuli n Ratio 1.5 1.0 - 2.5 (calc) [facility] [place] [facility] Bilirubin, Total 0.4 0.2 - 1.2 mg/dL [facility] [place] [facility] Alkaline Phosphatase 77 37 - 153 U/L [facility] [place] [facility] AST 20 10 - 35 U/L [facility] [place] [facility] ALT 16 6 - 29 U/L [facility] [place] [facility] Blood Venous blood specimen / Unknown 04/20/2024 11:19 AM EST 04/20/2024 11:19 AM EST Narrative [facility] - 04/21/2024 7:23 PM EST FASTING:NO FASTING: NO us Callie Lawson [facility] LAB BLOOD ORDERABLES Final Resul t [facility] [address], [place] [address] [facility] [facility] [place] [facility] [address] [place] [address] * BI Mammogram Screening Tomosynthesis Bilateral (03/08/2024 [...] (Benign) Lay letter mailed to patient WSN: [id number] Ordering Physician: Callie Lawson Dictated By: ?Veda Riley MD Dictated Date/Time: ?03/08/24 3:01 pm Reviewed By: ?Veda Riley MD Signed By: ? Veda Riley MD Signed Date/Time: ? 03/08/24 3:01 pm Transcribed By: ? CSB Security Officer Date/Time: ? 03/08/24 2:29 pm Birads: Procedure Note Doncalistater, Image - 03/08/2024 PROCEDURE: MM Digital Mammo Screening INDICATION: Screening for breast cancer. No known palpableabnormalities. Personal history of LEFT breast cancer with lumpectomy and radiation [id number]. COMPARISON: Prior mammograms dating back to 12/27/2014. [...] (Benign) Lay letter mailed to patient WSN: [id number] Ordering Physician: Callie Lawson Dictated By: Veda Riley MD Dictated Date/Time: 03/08/24 3:01 pm Reviewed By: Veda Riley MD Signed By: Veda Riley MD Signed Date/Time: 03/08/24 3:01 pm Transcribed By: KELLY Security Officer Date/Time: 03/08/24 2:29 pm Birads: Callie ARTEAGA IMG BI PROCEDURES Final Result from Last 3 Months or Most Recently Relevant to Health Maintenance Insurance STANDARD HMO-SNP Care Teams Strip Presser Relationship Specialty Start Date End Date Callie Lawson FNP [address] [place] [address] PCP - General Family Medicine 10/14/22
== END 2024-06-13 13:55 | disposition home or self-care (01) ==
LOC: HO.HOS 13:29
PROVIDERS: PCP Nurse Practitioner Family; Visit Provider Orthopaedic Surgery
DX: M17.11 Unilateral primary osteoarthritis, right knee (principal)
CPT/HCPCS: 20610; 99213

== ENCOUNTER → 2024-06-13 13:29 | Outpatient (BNVA) | payer MEDICARE, SELFPAY | PROVIDERS: PCP Nurse Practitioner Family; Visit Provider Orthopaedic Surgery | DX: M17.11 Unilateral primary osteoarthritis, right knee (principal) | CPT/HCPCS: 20610; 99212; J2003; J7323 ==

== ENCOUNTER 2024-06-20 13:46 | Outpatient (AMB) | payer MEDICARE, SELFPAY ==
--- NOTE | 2024-06-20 13:50 | MHC.OFFVIS ---
Vital Signs 06/20/24 13:54 Height 5 ft 2 in Weight 252 lb BMI 46.1 Intake Visit Reasons: Inj-Right Knee Euflexxa #2 Intake Note: Kiya is a 68 year old female who presents today for a second dose of right knee Euflexxa gel injection. Patient reports she has gotten good relief from the first dose and wishes to proceed with her second dose today. She continues with her home exercise program. Allergies No Known Allergies Allergy (Verified 06/20/24 13:53) Medication List - Last Reconciled 06/20/24 by Sanya Arias MD albuterol sulfate 90 mcg/actuation inhalation cetirizine 10 mg PO DAILY famotidine 20 mg PO DAILY fluticasone furoate-vilanterol 100-25 mcg/dose (Breo Ellipta) 1 ea inhalation DAILY fluticasone furoate-vilanterol 200-25 mcg/dose (Breo Ellipta) 1 inh inhalation DAILY gabapentin 300 mg PO TID hydrochlorothiazide 25 mg PO DAILY lorazepam 0.5 mg PO BEDTIME PRN losartan 100 mg PO DAILY magnesium oxide 250 mg PO DAILY omeprazole 40 mg PO DAILY trazodone 150 mg PO BEDTIME PFSH Surgical History (Updated 07/26/23 @ 09:13 by Sun Samuel CMA) Hx of lumpectomy Hx of cholecystectomy Hx of section Social History (Updated 07/26/23 @ 09:14 by Sun Samuel CMA) Patient Tobacco Use Status: Never used Tobacco 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al status: unemployed 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 Physical Exam Vital Signs: BMI result Body Mass Index 46.1 Extrem Other: Right knee examination shows a minimal effusion, palpable crepitus with range of motion, pain with range of motion, no instability Office Procedures AMB Joint Injection/Aspiration Joint Injection/Aspiration Primary Site: right knee Prep: site was prepped using aseptic technique Injected: 20 mg of (Euflexxa viscosupplementation) and 1% plain lidocaine Procedure: The patient tolerated the procedure well Coding 55265 - Large joint Procedure code (CPT) selection complete Results Reviewed Results Reviewed: X-rays of the patient's right knee taken previously show joint space narrowing, subchondral sclerosis, no acute bony abnormalities Assessment & Plan Assessment & Plan (1) Osteoarthritis of right knee: Code(s): M17.11 - Unilateral primary osteoarthritis, right knee Category: Medical Plan Ms. Fragoso presents with right knee pain due to osteoarthritis. The risks and benefits of a 2nd Euflexxa viscosupplementation injection were discussed at length with the patient. The patient wished to proceed. She tolerated the injection well. She will continue with her home exercise program. She will follow up next week as scheduled. Feel free to call me at any time should questions regarding her orthopedic management arise. Orders: Orders AMB Joint Injection/Aspiration Today M17.11 - Unilateral primary osteoarthritis, right knee Coding Level of Care Code Procedure Only Diagnoses Osteoarthritis of right knee M17.11 CPT Codes Coding - 98345 Large joint: 44215 - Large joint ([id number])
[2024-06-20 13:54] VITALS: BMI 46.1
--- OUTSIDE RECORDS SUMMARY | 2024-06-20 16:29 | XMS_ITS | Encounter Summary ---
Author Organization [employer] Address [address] [facility] [address]t [place] [address] Care Team Providers Care Station Jailer Name Role Phone Callie Lawson Primary Care Provider [phone] Farrah Jackman Unavailable Encounter Details Date Type Department Care Team ([facility] Contact Info) Description 12/24/2022 [facility] [address] [place] [phone] Callie Lawson FNP [address] [place] [address] Abnormal renal function finding (Primary Dx) Social [...] Primary documented in this encounter Care Teams Station Jailer Relationship Specialty Start Date End Date Callie Lawson FNP [address] [place] [address] PCP - General Family Medicine 10/14/22 [facility] [place] [address] 01/27/23 10/11/23 documented as of this encounter
--- OUTSIDE RECORDS SUMMARY | 2024-06-20 16:29 | XMS_ITS | Encounter Summary ---
Author Organization [employer] Address [address] [facility] [address] [place] [address] Care Team Providers Care Nursing Department Chairperson Name Role Phone Callie Lawson Primary Care Provider [phone] Encounter Details Date Type Department Care Team ([facility] Contact Info) Description 10/19/2023 Telephone [facility] [address] [place] [phone] Callie Lawson FNP [address] [place] [address] Social History Tobacco Use Types Packs/Day Years [...] the past 12 months, has t he [employer] gas, oil or water company threatened to [...] expiring. Please use today's date. Fax # [phone] Order was for physical therapy for balance problems. documented in this encounter Plan of Treatment Not on file documented as of this encounter Visit Diagnoses Not on filedocumented in this encounter Care Teams Nursing Department Chairperson Relationship Specialty Start Date End Date Callie Lawson FNP [address] [place] [address] PCP - General Family Medicine 10/14/22 documented as of this encounter
--- OUTSIDE RECORDS SUMMARY | 2024-06-20 16:29 | XMS_ITS | Clinical Summary ---
Author Organization [facility] Address [address] [place] [address] Care Team Providers Care Dryer And Washer Mechanic Name Role Phone Unknown Primary Care Provider [phone] Social History Tobacco Use Types Packs/Day Years [...] age to complete this topic Care Teams Dryer And Washer Mechanic Relationship Specialty Start Date End Date Unknown Unknow Provider Address PCP - General 07/27/20
--- OUTSIDE RECORDS SUMMARY | 2024-06-20 16:29 | XMS_ITS | Encounter Summary ---
Author Organization [employer] Address [address] [facility] [address]t [place] [address] Care Team Providers Care Pharmacy Tech Name Role Phone Callie Lawson JENNI Primary Care Provider [phone] Farrah Jackman Unavailable Encounter Details Date Type Department Care Team ([facility] Contact Info) Description 09/28/[address] [facility] Information Management [address] [place], [place] [id number] Provider, Not In System Social History Tobacco [...] on filedocumented in this encounter Care Teams Pharmacy Tech Relationship Specialty Start Date End Date Callie Lawson FNP [address] [place] [address] PCP - General Family Medicine 10/14/22 Farrah Jackman [address] [place] [address] 01/27/23 10/11/23 documented as of this encounter
--- OUTSIDE RECORDS SUMMARY | 2024-06-20 16:29 | XMS_ITS | Encounter Summary ---
Author Organization [employer] Address [address] [facility] [address]t [place] [address] Care Team Providers Care Dyeing Machine Feeder Name Role Phone Callie Lawson Primary Care Provider [phone] Encounter Details Date Type Department Care Team ([facility] Contact Info) Description 11/07/2023 Telephone [facility] [address] [place] [phone] Callie Lawson FNP [address] [place] [address] Social History Tobacco Use Types Packs/Day Years [...] Please reach out to the pt @ #[phone] documented in this encounter Plan of Treatment Not on file documented as of this encounter Visit Diagnoses Not on filedocumented in this encounter Care Teams Dyeing Machine Feeder Relationship Specialty Start Date End Date Callie Lawson FNP [address] [place] [address] PCP - General Family Medicine 10/14/22 documented as of this encounter
--- OUTSIDE RECORDS SUMMARY | 2024-06-20 16:29 | XMS_ITS | Data Portability ---
Author Organization [facility] [employer], [employer] Address [address] [place] [address] [place] [address] Care Team Providers Care Before School Name Role Phone MARK WINTERS Referring Provider [...] on rate), blood - R70.0 2022 023 ID.me [facility] (Centralized Electronic Ordering - All Locations), Patient Can Go To The Location Of Their Choice, [address] 08:09:47 calcium, serum or plasma - E83.50 2022 023 ID.me [facility] (Centralized Electronic Ordering - All Locations), [...] screen, EIA/ollie, serum - A69.20 2022 023 [facility] ([facility] - All Locations), Patient Can Go To The Location Of Their Choice, 3 12:10:22 C-reactive protein, quantitativ e, serum or plasma - R79.82 2022 023 [facility]), Patient Can Go To The Location Of Their Choice, 19:45:12 CK (creatine kinase), total, serum - R74.8 2022 023 [facility] ([facility] - All Locations), Patient Can Go To The Location Of Their Choice, 19:45:11 selenium, serum or plasma - E59 2022 023 [facility] 1 [facility] (Centralized Electronic Ordering - All Locations), Patient Can Go To The Location Of Their Choice, 12:10:22 testosteron e, total, serum - Z13.29 2022 023 [facility] ([facility] - All Locations), Patient Can Go To The Location Of Their Choice, 20:42:04 vitamin B6 (pyridoxine ), plasma - E67.2 2022 023 [facility]UL[facility] ([facility] - All Locations), Patient Can Go To The Location Of Their Choice, 3 16:07:37 homocystein e, serum or plasma - D51.9 2022 023 [facility]ULAH [facility] ([facility] Order[facility] - All Locations), Patient Can Go To The Location Of Their Choice, 3 19:12:18 mma (methylmalo skip acid), serum - D51.9 2022 023 BEULAH [facility] ([facility] Ordering - All [...] By Organization Details Last Modified Time 02/02/2023 37002 Discussion acros s issues of diagnoses and management and same day associated chart review and management greater than 50% greater than 60 minutes mrossen Not available 02/02/2023 10:17:50 02/21/2023 92584 Discussion acros s issues of diagnoses and [...] Go To The Location Of Their Choice, [address] 02/04/2023 19:12:18 02/05/2002/04/2023 PTH, INTAC T PTH, intact 79 pg/mL (15-65 ) high Not Available [facility] (Centralized Electronic Ordering - All Locations) Patient Can Go To The Location Of Their Choice, [address] 02/04/2023 19:27:51 02/05/2002/04/2023 CALCI UM calcium 9.9 [...] by [facility], [address] [place] [address] Not Available [facility] (Centralized Electronic Ordering - [...] . Testi ng perfo rmed by the [employer] ex 2200 multi plex flow [...] e delphine cteri stics deter mined by [employer]. It has not been clear ed or appro piotr by the Food and Drug Admin istra tion. Defic iency : <3.4 Mariah nal: 3.4 - 5.1 Adequ ate: >5.1 Test perfo rmed at [facility] , [address] [place] [address] Not Available [facility] (Centralized Electronic Ordering - All Locations) Patient Can Go To The Location Of Their Choice, [facility] 02/10/2023 16:07:37 02/05/2002/10/2023 METHY LMALO SKIP ACID, SERUM methylmaloni c acid, serum 304 Refer ence range : 0 to 378 Unit: nmol/ L (NOTE ) This test was devel oped and its perfo rmanc e delphine cteri stics deter mined by [facility]. It has not been clear ed or appro piotr by the Food and Drug Admin istra tion. Test perfo rmed at [facility] , [address] [place] [address] Not Available [facility] (Centralized Electronic Ordering - All Locations) Patient Can Go To The Location Of Their Choice, [facility] 02/10/2023 17:06:12 02/05/2002/13/2023 MAGNE SIUM RBC magnesium, RBC 4.2 Refer ence range : 3.7 to 7.0 Unit: mg/dL (NOTE ) This test was devel oped and its perfo rmanc e delphine cteri stics deter mined by [facility]. It has not been clear ed or appro piotr by the Food and Drug Admin istra tion. Ple ase note refer ence inter chio brewster e Test perfo rmed at [facility] , [address] [place] [address] Not Available [facility] (Centralized Electronic Ordering - All Locations) Patient Can Go To The Location Of Their Choice, [facility] 02/13/2023 21:05:42 Result Notes None recorded. [...] Updated DateTime 02/02/2023 154.94 cm 48.4 kg/m2 774138.6 5 g 12 /min [facility] 02/02/2023 08:51:22 Social History Question Answer Notes LastModified by Organizat ion Details LastModified Time Tobacco Smoking Status Never Smoker [facility] 02/02/2023 08:56:31 What Is Your Level Of Alcohol Consumption? None Information not available 02/02/2023 What Is Your Level Of Caffeine Consumption? Moderate 2 Information not available 02/02/2023 What Is The Highest Grade Or Level Of School You Have Completed Or The Highest Degree You Have Received? [id number] Information not available 02/02/2023 Which Of Your [...] SNOMED-CT Code Diagnosis ICD10 Code Diagnosis Note 28910 Yahs Castillo MD [facility] [address] [place] [address] [place] [address] 02/02/2023 08:38:31 02/02/2023 10:43:30 Idiopathic peripheral neuropathy 02592468 G60.3 58506 Yash Castillo MD [facility] [address] [place] [address] [place] [address] 02/21/2023 11:18:04 02/21/2023 17:14:29 Idiopathic peripheral neuropathy 03204782 G60.3 Health Concerns Section Related Observation LastModified by Organization Detai ls LastModified Time None Recorded Concern Status LastModified by Organization Details LastModified Time None Recorded Advance Directives Directive None Recorded Payers Encounter Date Sequence Insurance Name Policy Number Policy [place] Covered Member ID [place] Member ID Guarantor Name 02/02/2023 1 [employer] [facility] (MEDICARE REPLACEMENT PPO) Kiya Fragoso [id number] Kiya Fragoso 02/21/2023 1 [employer] (MEDICARE REPLACEMENT PPO) Kiya Fragoso [id number] Kiya Fragoso Notes Date Note Type Note [...] passing ~3 years ago. Yash Castillo MD [address] [place] [address], [id number] [facility] 02/02/2023 10:20:00 02/21/2023 text/html Neurology follow -up [...] passing ~3 years ago. Yash Castillo MD [address] [place] [address] [place], [address], [facility] 02/21/2023 12:36:41 OBGyn Episode No OBEpisode recorded.
--- OUTSIDE RECORDS SUMMARY | 2024-06-20 16:30 | XMS_ITS | Encounter Summary ---
Author Organization [employer] Address [address] [facility] 7t [place] [address] Care Team Providers Care Family Development Extension Specialist Name Role Phone Callie Lawson Primary Care Provider [phone] Farrah Jackman Unavailable Encounter Details Date Type Department Care Team ([facility] Contact Info) Description 06/16/2023 Telephone [facility] [address] [place] [address] Callie Lawson FNP 102 [place] [address] Social History Tobacco Use Types Packs/Day Years [...] on filedocumented in this encounter Care Teams Family Development Extension Specialist Relationship Specialty Start Date End Date Callie Lawson FNP [address] [place] [address] PCP - General Family Medicine 10/14/22 Farrah Jackman [address] [place] [address] 01/27/23 10/11/23 documented as of this encounter
--- OUTSIDE RECORDS SUMMARY | 2024-06-20 16:30 | XMS_ITS | Encounter Summary ---
Author Organization [employer] Address [address] [facility] 7t [place] [address] Care Team Providers Care Reactor Fueling Supervisor Name Role Phone Callie Lawson Primary Care Provider [phone] Farrah Jackman Unavailable Encounter Details Date Type Department Care Team ([facility] Contact Info) Description 10/14/2022 Orders Only [facility] [address] [facility] [address] [place] [address] Marli Cornejo MD [address] [place] [address] Social History Tobacco Use Types Packs/Day Years [...] on filedocumented in this encounter Care Teams Reactor Fueling Supervisor Relationship Specialty Start Date End Date Callie Lawson FNP [address] [place] [address] PCP - General Family Medicine 10/14/[address] [place] [address] 01/27/23 10/11/23 documented as of this encounter
--- OUTSIDE RECORDS SUMMARY | 2024-06-20 16:30 | XMS_ITS | Encounter Summary ---
Author Organization [employer] Address [address] [facility] 7t [place] [address] Care Team Providers Care Heel Buffer Name Role Phone Callie Lawson JENNI Primary Care Provider [phone] Farrah Jackman Unavailable Reason for Visit * Reason Comments Med Refill Encounter Details Date Type Department Care Team (Late st Contact Info) Description 10/14/2022 Refill [facility] [address] [facility] [address] [place] [address] Sushila Abrams FNP 119 [place] [address] Social History Tobacco Use Types Packs/Day Years [...] on filedocumented in this encounter Care Teams Heel Buffer Relationship Specialty Start Date End Date Callie Lawson FNP [address] [place] [address] PCP - General Family Medicine 10/14/22 Farrah Jackman [address] [place] [address] 01/27/23 10/11/23 documented as of this encounter
--- OUTSIDE RECORDS SUMMARY | 2024-06-20 16:30 | XMS_ITS | Encounter Summary ---
Author Organization [employer] Address [address] [facility] 7t [place] [address] Care Team Providers Care Bleach Boiler Filler Name Role Phone Callie Lawson Primary Care Provider [phone] Encounter Details Date Type Department Care Team ([facility] Contact Info) Description 06/19/2024 Telephone [facility] 102 [place] [address] Callie Lawson FNP 102 [place] [address] Social History Tobacco Use Types Packs/Day Years [...] encounter Miscellaneous Notes * Telephone Encounter - Tiffanie Buchanan - 06/20/2024 12:42 PM EDT Patient left a voicemail to check the status of the pull-up request with original home care * Telephone Encounter - Gardenia Miles LPN - 06/19/2024 9:46 AM EDT Spoke to pt stated needs script for XL pull ups to be sent [facility]. * Telephone Encounter - Jacki Segundo - 06/19/2024 9:09 AM EDT Patient is calling looking for a call back from a nurse regarding a prescription Call back# [phone] documented in this encounter Plan of Treatment Not on file documented as of this encounter Visit Diagnoses Not on filedocumented in this encounter Care Teams Bleach Boiler Filler Relationship Specialty Start Date End Date Callie Lawson FNP [address] [place] [address] PCP - General Family Medicine 10/14/22 documented as of this encounter
--- OUTSIDE RECORDS SUMMARY | 2024-06-20 16:30 | XMS_ITS | Encounter Summary ---
Author Organization [employer] Address [address] [facility] 7 [place] [address] Care Team Providers Care Product Development Manager Name Role Phone Callie Amato Primary Care Provider [phone] Reason for Referral * Consultation (Routine) - Pending Review Specialty Diagnoses / Procedures Referred By Jossy jacques Referred To Contact Behavioral Health Diagnoses Current mild episode of major depressive disorder without prior episode (CMS/HCC) Callie Amato FNP [address] [place] [address] Phone: tel: fax: [facility] [address] [place] [address] Phone: tel: fax: Referral ID Status Reason Start Date Expiration Date Visits Requested Visits Authorized [id number] Pending Review Specialty Services Required 05/24/2024 05/24/2025 1 1 * Consultation (Routine) - Authorized Specialty Diagnoses / Procedures Referred By Jossy jacques Referred To Contact Behavioral Health Diagnoses Current mild episode of major depressive disorder without prior episode (CMS/HCC) Callie Amato FNP [address] [place] [address] Phone: tel: fax: [place] [facility] [employer] [address] [place], [place] Phone: tel: fax: Referral ID Status Reason Start Date Expiration Date Visits Requested Visits Authorized [id number] Authorized Specialty Services Required 05/24/2024 05/24/2025 6 6 Reason for Visit * Reason Comments Follow-up Left breast wound is still pussing, in lots of pain still. Encounter Details Date Type Department Care Team (Late st Contact Info) Description 05/24/2024 1:40 PM EST Office Visit [facility][1] [address] [place] [address] Callie Amato FNP 102 [place] [address] Abscess (Primary Dx); Current mild episode of major depressive disorder without prior episode (CMS/HCC); Stress incontinence of urine Social History Tobacco Use Types Packs/Day Years [...] the past 12 months, has t he [employer], gas, oil or water 2can threatened to shut off services in your [...] encounter Progress Notes * JENNI Ortega - 05/24/2024 1:40 PM EST Subjective Patient ID: Kiya Fragoso is a 68 y.o. female who presents for Follow-up (Left breast wound is still pussing, in lots of pain still. ). Started 7 days ago and today popped open and leaking white smelly dc, painful the last day or two 2. Her ins called and offered therapy; needs referral for depression HPI 3. Patient also having incontnence of urine. Needs pull ups. No cystitis. 6 per day should work. Review of Systems Objective Physical Exam Cardiovascular: [...] of major depressive disorder without prior episode ([facility]) - Referral to Behavioral Health; Future - Referral to Behavioral Health; Future Discussed hot soaks and will call with results on Tuesday and rtc worse or cont Use bandaids and antibiotic cream Ibuprofen and tyl for pain documented in this encounter Miscellaneous Notes * Addendum Note - JENNI Ortega - 05/24/2024 1:40 PM ESTAddended by: CALLIE AMATO on: 06/19/2024 02:24 PM Modules accepted: Orders documented in this encounter Plan of Treatment Scheduled Orders Name Type Priority Associated Diagnoses Orde r Schedule Culture, Superficial Wound Microbiology Routine Abscess Expected: 05/24/2024 (Approximate), Expires: 05/24/2025 Scheduled Referrals Name Type Priority Associated Diagnoses Order Schedule Referral to Behavioral Health Outpatient Referral Routine Current mild episode of major depressive disorder without prior episode ([facility]/HCC) Expected: 05/24/2024 (Approximate), Expires: 05/24/2025 Referral to Behavioral Health Outpatient Referral Routine Current mild episode of major depressive disorder without prior episode (CMS/HCC) Expected: 05/24/2024 (Approximate), Expires: 05/24/2025 documented as of this encounter Visit Diagnoses Diagnosis Abscess- Primary Cellulitis and abscess of unspecified site Current mild episode of major depressive disorder without prior episode (CMS/[facility]) Stress incontinence of urine documented in this encounter Care Teams Product Development Manager Relationship Specialty Start Date End Date Callie Amato FNP [address] [place] [address] PCP - General Family Medicine 10/14/22 documented as of this encounter
--- OUTSIDE RECORDS SUMMARY | 2024-06-20 16:30 | XMS_ITS | Encounter Summary ---
Author Organization [employer] Address [address] [facility] 7t [place] [address] Care Team Providers Care Film Color Tester Name Role Phone Callie Lawson Primary Care Provider [phone] Encounter Details Date Type Department Care Team ([facility] st Contact Info) Description 05/24/2024 Orders Only [facility] [address] [place] [address] Callie Lawson FNP [address] [place] [address] Social History Tobacco Use Types Packs/Day Years [...] the past 12 months, has t he [employer], gas, oil or water company threatened to [...] Culture, Aerobic Bacteria SEE NOTE [facility] Comment: ??CULTURE, AEROBIC BACTERIA ?Micro Number: ?[id number] ??Test Status: ? Final ??Specimen Source: ?? Breast, left ??Specimen Quality: ??Adequate ??Result: ?No Growth 05/24/2024 3:09 PM EST 05/24/2024 3:10 PM EST Narrative [facility] - 05/27/2024 8:39 AM EST FASTING:UNKNOWN FASTING: UNKNOWN Callie [facility] - GENERAL ORDER TREY Final Result [facility] [address], [place] [address] [facility] 200 [place] [address] documented in this encounter Visit Diagnoses Not on filedocumented in this encounter Care Teams Film Color Tester Relationship Specialty Start Date End Date Callie Lawson FNP [address] [place] [address] PCP - General Family Medicine 10/14/22 documented as of this encounter
--- OUTSIDE RECORDS SUMMARY | 2024-06-20 16:30 | XMS_ITS | Encounter Summary ---
Author Organization [employer] Address [address] [facility] 7t [place] [address] Care Team Providers Care Body And Fender Mechanic Name Role Phone Callie Lawson JENNI Primary Care Provider [phone] Encounter Details Date Type Department Care Team ([facility] Contact Info) Description 05/31/2024 11:30 AM [facility] Community [facility] Management [facility] [address] [address] Carla Boogie 102 [place] [address] Social History Tobacco Use Types Packs/Day Years [...] the past 12 months, has t he [employer], gas, oil or water company threatened to [...] requested in house transport for; Orthopedic appt [address] [place] [address] dr leroy 06/13 145pm Pickup for 1230 06/20 at 2pm Pickup for 1pm 06/28 at 1030am Pickup for 930am documented in this encounter Plan of Treatment Not on file documented as of this encounter Visit Diagnoses Not on filedocumented in this encounter Care Teams Body And Fender Mechanic Relationship Specialty Start Date End Date Callie Lawson FNP [address] [place] [address] PCP - General Family Medicine 10/14/22 documented as of this encounter
--- OUTSIDE RECORDS SUMMARY | 2024-06-20 16:30 | XMS_ITS | Encounter Summary ---
Author Organization [employer] Address [address] [facility] 7t [place] [address] Care Team Providers Care Slicing Machine Feeder Name Role Phone Callie Lawson JENNI Primary Care Provider [phone] Farrah Jackman Unavailable Reason for Visit * Reason Comments Med Refill Encounter Details Date Type Department Care Team ([facility] st Contact Info) Description 10/14/2022 Refill [facility] [address] [facility] [address] [place] [address] Sushila Abrams FNP 119 [place] [address] Social History Tobacco Use Types Packs/Day Years [...] on filedocumented in this encounter Care Teams Slicing Machine Feeder Relationship Specialty Start Date End Date Callie Lawson FNP [address] [place] [address] PCP - General Family Medicine 10/14/22 Frarah Jackman [address] [place] [address] 01/27/23 10/11/23 documented as of this encounter
--- OUTSIDE RECORDS SUMMARY | 2024-06-20 16:30 | XMS_ITS | Encounter Summary ---
Author Organization [employer] Address [address] [facility] 7t [place] [address] Care Team Providers Care Low Vision Therapist Name Role Phone Callie Lawson Primary Care Provider [phone] Encounter Details Date Type Department Care Team ([facility] Contact Info) Description 03/06/2024 Telephone [facility] 102 [place] [address] Callie Lawson FNP [address] [place] [address] Social History Tobacco Use Types Packs/Day Years [...] When this has been done. Call back #[phone] documented in this encounter Plan of Treatment Not on file documented as of this encounter Visit Diagnoses Not on filedocumented in this encounter Care Teams Low Vision Therapist Relationship Specialty Start Date End Date Callie Lawson FNP [address] [place] [address] PCP - General Family Medicine 10/14/22 documented as of this encounter
--- OUTSIDE RECORDS SUMMARY | 2024-06-20 16:30 | XMS_ITS | Encounter Summary ---
Author Organization [employer] Address [address] [facility] 7t [place] [address] Care Team Providers Care Manager Of Organizational Development Name Role Phone Callie Lawson Primary Care Provider [phone] Encounter Details Date Type Department Care Team ([facility] st Contact Info) Description 05/24/2024 Telephone [facility] [address] [address] Callie Lawson FNP 102 [place] [address] Social History Tobacco Use Types Packs/Day Years [...] the past 12 months, has t he [employer], gas, oil or water company threatened to [...] a history of breast cancer. Call back #[phone] documented in this encounter Plan of Treatment Not on file documented as of this encounter Visit Diagnoses Not on filedocumented in this encounter Care Teams Manager Of Organizational Development Relationship Specialty Start Date End Date Callie Lawson FNP [address] [place] [address] PCP - General Family Medicine 10/14/22 documented as of this encounter
--- OUTSIDE RECORDS SUMMARY | 2024-06-20 16:30 | XMS_ITS | Encounter Summary ---
Author Organization [facility] Address [address] [place] [address] Phone Care Team Providers Care Customer Experience Professional Name Role Phone Callie Lawson Primary Care Provider [phone] Encounter Details Date Type Department Care Team (Late st Contact Info) Description 05/02/2024 Documentation Only [facility], [address] [place] [address] [place] [address] [place] [address] Social History Tobacco Use [...] Visit [facility] [address] [address] Hortensia Ball DO [address] [place] [address] documented as of this encounter Visit Diagnoses Not on filedocumented in this encounter Care Teams Customer Experience Professional Relationship Specialty Start Date End Date Callie Lawson FNP 102 [place] [address] PCP - General Nurse Practitioner 05/02/24 documented as of this encounter
--- OUTSIDE RECORDS SUMMARY | 2024-06-20 16:30 | XMS_ITS | Clinical Summary ---
Author Organization [employer] Address 75 [facility] 7t [place] [address] Care Team Providers Care Transformer Stock Clerk Name Role Phone Callie Lawson JENNI Primary Care Provider [phone] Allergies Active Allergy Reactions Criticality Noted Date [...] alternative to albuterol. - Follow up with trim operator, last appointment one year prior - Discussed [...] organization. Date Type Department Care Team Description 06/19/2024 Orders Only [address] [address] Callie Lawson FNP 06/19/[address] [address] Callie Lawson FNP 06/07/[address] [address] Callie Lawson FNP Anxiety 05/31/2024 11:30 AM EST Community Care Management [facility] [address] [address] Carla Boogie 05/24/2024 1:40 PM EST Office Visit [address] [address] Callie Lawson FNP Abscess (Primary Dx); Current mild episode of major depressive disorder without prior episode (CMS/FORMERLY [facility]); Stress incontinence of urine 05/24/2024 Orders Only [address] [address] Callie Lawson FNP 05/24/[address] [address] Callie Lawson FNP 05/09/2024 9:30 AM EST Community Care Management [facility] 119 [facility] 200 [place] [address] Carla Boogie 04/25/2024 11:00 AM EST Community Care Management [facility] 119 [facility] 200 [place] [address] Carla Boogie 04/23/2024 Orders Only [address] [address] Callie Lawson FNP Stage 3 chronic kidney disease, unspecified whether stage 3a or 3b CKD (CMS/HCC) (Primary Dx); Hypercalcemia 04/20/2024 10:40 AM EST Office Visit [address] [address] Callie Lawson FNP Prediabetes (Primary Dx); Neuropathy 04/11/[address] [address] Callie Lawson FNP from Last 3 Months [...] Culture, Aerobic Bacteria SEE NOTE [facility] Comment: ??CULTURE, AEROBIC BACTERIA ?Micro Number: ?[id number] ??Test Status: ? Final ??Specimen Source: ?? Breast, left ??Specimen Quality: ??Adequate ??Result: ?No Growth 05/24/2024 3:09 PM EST 05/24/2024 3:10 PM EST Narrative [facility] - 05/27/2024 8:39 AM EST FASTING:UNKNOWN FASTING: UNKNOWN Callie Lawson [facility] MICROBIOLOGY - GENERAL ORDER TREY Final Result Performing Organization Address [facility] de Phone Number [address], [place] [address] [facility] | [employer] [place] [employer] [address] [place] [phone] * Albumin, Random Urine W/Creatinine (04/20/2024 11:19 AM EST) Creatinine, Random Urine 96 20 - 275 mg/dL [facility] | [employer] [place] [facility] Albumin, Urine <0.2 See Note: mg/dL [facility] | [employer] [place] [employer] Comment: Reference Range: Reference Range Not established Albumin/Creatinin e Ratio, Random Urine NOTE <30 mg/g creat [facility] | [employer] [place] [employer] Comment: NOTE: The urine albumin value is [...] 7:23 PM EST FASTING:NO FASTING: NO Callie [facility] LAB URINE ORDERABLES Final Resul t Performing Organization Address [facility] de Phone Number [address], [place] [address] [facility] | [employer] [place] [facility] [address] [place] [address] * (ABNORMAL) CBC (04/20/2024 11:19 AM EST) [facility] White Blood Cell Count 10.3 3.8 - 10.8 Thousand/ uL [facility] | [employer] [place] [facility] Red Blood Cell Count 4.83 3.80 - 5.10 Million/u L [facility] | [employer] [place] [employer] Hemoglobin 13.7 11.7 - 15.5 g/dL [facility] | [employer] [place] [employer] Hematocrit 43.5 35.0 - 45.0 % [facility] | [employer] [place] [employer] MCV 90.1 80.0 - 100.0 fL [facility] | [employer] [place] [employer] MCH 28.4 27.0 - 33.0 pg SL[facility] | [employer] [place] [employer] MCHC 31.5(L) 32.0 - 36.0 g/dL [facility] | [employer] [place] [employer] Comment: For adults, a slight decrease in the calculated MCHC value (in the range of 30 to 32 g/dL) is most likely not clinically significant; however, it should be interpreted with caution in correlation with other red cell parameters and the patient's clinical condition. RDW 12.6 11.0 - 15.0 % [facility] | [employer] [place] [employer] Platelet Count 274 140 - 400 Thousand/ uL [facility] | [employer] [place] [employer] MPV 10.3 7.5 - 12.5 fL [facility] | [employer] [place] [employer] Blood Venous blood specimen / Unknown 04/20/2024 11:19 AM EST 04/20/2024 11:19 AM EST Narrative [facility] - 04/21/2024 7:23 PM EST FASTING:NO FASTING: NO us Callie Lawson [facility] BLOOD ORDERABLES Final Resul t [facility] [address], [place] [address] [facility] | [employer] [place] [employer] [address] [place] [address] * Uric acid (04/20/2024 11:19 AM EST) [facility] Uric Acid 6.5 2.5 - 7.0 mg/dL [facility] | [employer] [place] [employer] Comment: Therapeutic target for gout patients: <6.0 mg/dL ?? Blood Venous blood specimen / Unknown 04/20/2024 11:19 AM EST 04/20/2024 11:19 AM EST Narrative [facility] - 04/21/2024 7:23 PM EST FASTING:NO FASTING: NO Callie Lawson [facility] BLOOD ORDERABLES Final Resul t Performing Organization Address [facility] de Phone Number [facility] [address], [place] [address] [employer] [address] [place] [address] * Hemoglobin A1c (04/20/2024 11:19 AM EST) [facility] Hemoglobin A1c 5.4 <5.7 % of total Hgb [facility] | [employer] [place] [employer] Comment: For the purpose of screening for the presence of diabetes: <5.7% ? Consistent with the absence of diabetes 5.7-6.4% ?Consistent with increased risk for diabetes ?(prediabetes) > or =6.5% ??Consistent with diabetes This assay result is consistent with a decreased risk of diabetes. Currently, no consensus exists regarding use of hemoglobin A1c for diagnosis of diabetes in children. According to [place] Diabetes Association (ADA) guidelines, hemoglobin A1c <7.0% represents optimal control in non- diabetic patients. Different metrics may apply to specific patient populations. Standards of Medical Care in Diabetes(ADA). ?? Blood Venous blood specimen / Unknown 04/20/2024 11:19 AM EST 04/20/2024 11:19 AM EST Narrative [facility] - 04/21/2024 7:23 PM EST FASTING:NO FASTING: NO Callie [facility] LAB BLOOD ORDERABLES Final Resul t Performing Organization Address [facility]/ZIP Co de Phone Number [address], [place] [address] [facility] [address] [place] [address] * Vitamin B12 (04/20/2024 11:19 AM EST) [facility] Vitamin B12 379 200 - 1,100 pg/mL [facility] | [employer] [place] [employer] Comment: Please Note: Although the reference range [...] EST FASTING:NO FASTING: NO us Callie Lawson [facility] BLOOD ORDERABLES [facility] Organization Address City/State/ZIP Co de Phone Number [facility] [address], [place] [address] [facility]Z | [employer] [place] [employer] [address] [place] [address] * (ABNORMAL) Lipid Panel, Standard (04/20/2024 11:19 AM EST) [facility] Cholesterol, Total 210(H) <200 mg/dL [facility] | [employer] [place] [employer] HDL Cholesterol 74 > OR = 50 mg/dL [facility] | [employer] [place] [employer] Triglycerides 139 <150 mg/dL [facility] | [employer] [place] [employer] LDL Cholesterol 111(H) mg/dL [facility] [place] [facility] Comment: Reference range: <100 Desirable range <100 mg/dL for primary prevention; ?? <70 mg/dL for patients with CHD or diabetic patients with > or = 2 CHD risk factors. LDL-C is now calculated using the Debbie calculation, which is a validated novel method providing better accuracy than the Friedewald equation in the estimation of LDL-C. Pipe MADERA et al. DAINA. 2013;310(19): 9136-8315 (http://education.P-Commerce.Novaled/faq/GDA543) Chol/HDLC Ratio 2.8 <5.0 (calc) [facility] | [employer] [place] [facility] [employer] Non-HDL Cholesterol 136(H) <130 mg/dL [facility] | [employer] [place] [employer] Comment: For patients with diabetes plus 1 major ASCVD risk factor, treating to a non-HDL-C goal of <100 mg/dL (LDL-C of <70 mg/dL) is considered a therapeutic option. Blood Venous blood specimen / Unknown 04/20/2024 11:19 AM EST 04/20/2024 11:19 AM EST Narrative [facility] - 04/21/2024 7:23 PM EST FASTING:NO FASTING: NO us Callie Lawson [facility] BLOOD ORDERABLES Final Resul t [facility] [address], [place] [address] [facility] | [employer] [place] [employer] [address] [place] [address] * (ABNORMAL) Comprehensive Metabolic Panel (04/20/2024 11:19 AM EST) Glucose 88 65 - 139 mg/dL [facility] | [employer] [place] [employer] Comment: ? Non-fasting reference interval Urea Nitrogen (BUN) 24 7 - 25 mg/dL [facility] | [employer] [place] [facility] Creatinine, Serum 1.47(H) 0.50 - 1.05 mg/dL [facility] | [employer] [place] [employer] eGFR 39(L) > OR = 60 mL/min/1. 73m2 [facility] | [employer] [place] [employer] BUN/Creatinine Ratio 16 6 - 22 (calc) [facility] | [employer] [place] [facility] Sodium 140 135 - 146 mmol/L [facility] | [employer] [place] [facility] Potassium 4.3 3.5 - 5.3 mmol/L [facility] | [employer] [place] [facility] Chloride 100 98 - 110 mmol/L [facility] | [employer] [place] [facility] Carbon Dioxide 31 20 - 32 mmol/L [facility] | [employer] [place] [facility] Calcium 10.5(H) 8.6 - 10.4 mg/dL [facility] | [employer] [place] [employer] Protein, Total 7.4 6.1 - 8.1 g/dL [facility] | [employer] [place] [facility] Albumin 4.4 3.6 - 5.1 g/dL [facility] [place] [facility] Globulin 3.0 1.9 - 3.7 g/dL (calc) [facility] [place] [facility] Albumin/Globuli n Ratio 1.5 1.0 - 2.5 (calc) [facility] [place] [facility] Bilirubin, Total 0.4 0.2 - 1.2 mg/dL [facility] [place] [facility] Alkaline Phosphatase 77 37 - 153 U/L [facility] [place] [facility] AST 20 10 - 35 U/L [facility] [place] [facility] ALT 16 6 - 29 U/L [facility] | [employer] [place] [facility] Blood Venous blood specimen / Unknown 04/20/2024 11:19 AM EST 04/20/2024 11:19 AM EST Narrative [facility] - 04/21/2024 7:23 PM EST FASTING:NO FASTING: NO Callie Lawson [facility] BLOOD ORDERABLES Final Resul t Performing Organization Address City/State/[facility] Co de Phone Number [facility] [address], [place] [address] [facility]Z | [employer] [place] [facility] [address] [place] [address] * BI Mammogram Screening Tomosynthesis Bilateral (03/08/2024 [...] (Benign) Lay letter mailed to patient WSN: [id number] Ordering Physician: Callie Lawsno Dictated By: ?Veda Riley MD Dictated Date/Time: ?03/08/24 3:01 pm Reviewed By: ?Veda Riley MD Signed By: ? Veda Riley MD Signed Date/Time: ? 03/08/24 3:01 pm Transcribed By: ? CSB Artist Woodblock Date/Time: ? 03/08/24 2:29 pm Birads: Procedure Note Donotuseinterpreter, Image - 03/08/2024 PROCEDURE: MM Digital Mammo Screening INDICATION: Screening for breast cancer. No known palpableabnormalities. Personal history of LEFT breast cancer with lumpectomy and radiation [id number]. COMPARISON: Prior mammograms dating back to 12/27/2014. [...] (Benign) Lay letter mailed to patient WSN: [id number] Ordering Physician: Callie Lawson Dictated By: Veda Riley MD Dictated Date/Time: 03/08/24 3:01 pm Reviewed By: Veda Riley MD Signed By: Veda Riley MD Signed Date/Time: 03/08/24 3:01 pm Transcribed By: KELLY Artist Woodblock Date/Time: 03/08/24 2:29 pm Birads: Callie ARTEAGA IMG BI PROCEDURES Final Result from Last 3 Months or Most Recently Relevant to Health Maintenance [place] [address] [address] [facility] Care Teams Transformer Stock Clerk Relationship Specialty Start Date End Date Callie Lawson FNP [address] [place] [address] PCP - General Family Medicine 10/14/22"
--- OUTSIDE RECORDS SUMMARY | 2024-06-20 16:30 | XMS_ITS | Encounter Summary ---
Author Organization [employer] Address [address] [place] [address] 7t [place] [address] Care Team Providers Care Six Sigma Black Trainer Name Role Phone Callie Lawson Primary Care Provider [phone] Farrah Jackman Unavailable Reason for Referral * Consultation (Routine) - Canceled Specialty Diagnoses / Procedures Referred By Contkit t Referred To Contact Diagnoses Hematuria, unspecified type Callie Lawson FNP [address] [place] [address] Phone: tel: fax: Provider, Not In System Referral ID Status Reason Start Date Expiration Date Visits Requested Visits Authorized [id number] Canceled Specialty Services Required 08/21/2023 08/20/2024 1 1 Encounter Details Date Type Department Care Team ([facility] st Contact Info) Description 08/17/2023 Orders Only [facility] [address] [place] [phone] Callie Lawson FNP [address] [place] [address] Hematuria, unspecified type (Primary Dx); Obesity (BMI [...] knee documented in this encounter Care Teams Six Sigma Black Trainer Relationship Specialty Start Date End Date Callie Lawson FNP [address] [place] [address] PCP - General Family Medicine 10/14/22 Farrah Jackman [address] [place] [address] 01/27/23 10/11/23 documented as of this encounter
--- OUTSIDE RECORDS SUMMARY | 2024-06-20 16:30 | XMS_ITS | Encounter Summary ---
Author Organization [employer] Address 75 [facility] 7t [place] [address] Care Team Providers Care Thermospray Operator Name Role Phone Callie Lawson Primary Care Provider [phone] Reason for Visit * Reason Comments Med Refill Encounter Details Date Type Department Care Team ([facility] Contact Info) Description 06/07/2024 Refill [facility] [address] [place] [phone] Callie Lawson FNP 102 [place] [address] Anxiety Social History Tobacco Use Types Packs/Day [...] the past 12 months, has t he [employer], gas, oil or water company threatened [...] Ortega: Future Appointments Date Time Provider Department [place] 06/27/2024 11:00 AM WENDY [facility] 07/11/2024 11:00 AM WENDY [facility] Comments: documented in this encounter Plan of Treatment Not on file documented as of this encounter Visit Diagnoses Diagnosis Anxiety Anxiety state, unspecified documented in this encounter Care Teams Thermospray Operator Relationship Specialty Start Date End Date Callie Lawson FNP [address] [place] [address] PCP - General Family Medicine 10/14/22 documented as of this encounter
--- OUTSIDE RECORDS SUMMARY | 2024-06-20 16:30 | XMS_ITS | Clinical Summary ---
Author Organization [facility], Address [address] [place] [phone] Phone Care Team Providers Care Explosives Engineer Name Role Phone Callie Lawson JENNI Primary Care Provider [phone] Allergies Active Allergy Reactions Criticality Noted Date [...] Visit [facility] [address] [address] Hortensia Ball DO Stage 3b chronic kidney disease (HCC) (Primary Dx); Hypertension 05/04/2024 Office Communication [facility], [address] [place] [phone] Dawna Bedolla [place] 05/02/2024 Documentation Only [facility], [address] [place] [phone] Dawna Bedolla MA from Last 3 Months [...] Visit [facility] [address] [place] [address] Hortensia Ball DO [address] [place] [address] Health Maintenance Due Date Last [...] age to complete this topic Insurance , [address] [id number] [facility] MEDICARE MEDICAID [place] Care Teams Explosives Engineer Relationship Specialty Start Date End Date Callie Lawson FNP [address] [place] [address] PCP - General Nurse Practitioner 05/02/24
--- OUTSIDE RECORDS SUMMARY | 2024-06-20 16:30 | XMS_ITS | Encounter Summary ---
Author Organization [employer] Address 75 [facility] 7t [place] [address] Care Team Providers Care Licensed Nurse Practitioner Name Role Phone Callie Lawson Primary Care Provider Encounter Details Date Type Department Care Team ([facility] Contact Info) Description 06/19/2024 Orders Only [facility] [address] [place] [phone] Callie Lawson FNP [address] [place] [address] Social History Tobacco Use Types Packs/Day Years [...] on filedocumented in this encounter Care Teams Licensed Nurse Practitioner Relationship Specialty Start Date End Date Callie Lawson FNP [address] [place] [address] PCP - General Family Medicine 10/14/22 documented as of this encounter
--- OUTSIDE RECORDS SUMMARY | 2024-06-20 16:30 | XMS_ITS | Encounter Summary ---
Author Organization [facility], Address [address] [place] [address] Phone Care Team Providers Care Access Clerk Name Role Phone Callie Lawson Primary Care Provider [phone] Reason for Visit * Reason Comments Chronic Kidney Disease Encounter Details Date Type Department Care Team (Late st Contact Info) Description 05/30/2024 10:00 AM EST Office Visit [facility] [address] [phone] Hortensia Ball DO [address] [place] [phone] Stage 3b chronic kidney disease (HCC) (Primary [...] Office Visit [facility] [address] [phone] Hortensia Ball DO [address] [place] [phone] Scheduled Orders Name Type Priority Associated Diagnoses [...] Hypertension documented in this encounter Care Teams Access Clerk Relationship Specialty Start Date End Date Callie Lawson FNP [address] [place] [address] PCP - General Nurse Practitioner 05/02/24 documented as of this encounter
--- OUTSIDE RECORDS SUMMARY | 2024-06-20 16:30 | XMS_ITS | Encounter Summary ---
Author Organization [employer] Address 75 [facility] 7 [place] [address] Care Team Providers Care Animal Handler Name Role Phone Callie Lawson Primary Care Provider [phone] Reason for Referral * Consultation (Routine) - Authorized Specialty Diagnoses / Procedures Referred By Contkit t Referred To Contact Diagnoses Stage 3 chronic kidney disease, unspecified whether stage 3a or 3b CKD (CMS/HCC) Callie Lawson FNP [address] [place] [address] Phone: tel: fax: Yash Meza [address] [place] [address] Phone: tel: fax: Referral ID Status Reason Start Date Expiration Date Visits Requested Visits Authorized [id number] Authorized Specialty Services Required 04/24/2024 04/24/2025 6 6 Encounter Details Date Type Department Care Team ([facility] st Contact Info) Description 04/23/2024 Orders Only [facility] [address] [place] [address] Callie Lawson FNP [address] [place] [address] Stage 3 chronic kidney disease, unspecified whether [...] Hypercalcemia documented in this encounter Care Teams Animal Handler Relationship Specialty Start Date End Date Callie Lawson FNP [address] [place] [address] PCP - General Family Medicine 10/14/22 documented as of this encounter
--- OUTSIDE RECORDS SUMMARY | 2024-06-20 16:30 | XMS_ITS | Encounter Summary ---
Author Organization [employer] Address 75 [facility] 7t [place] [address] Care Team Providers Care Dietary Manager Name Role Phone Callie Lawson Primary Care Provider [phone] Farrah Jackman Unavailable Encounter Details Date Type Department Care Team ([facility] st Contact Info) Description 07/13/2023 Telephone [facility] [address] [facility] [address] [place] [address] Callie Lawson FNP [address] [place] [address] Social History Tobacco Use Types Packs/Day Years [...] requesting we send her referral to an day habilitation specialist closer to her, she said she found one in [facility], she wasn't sure of the name, but their phone number is [phone] documented in this encounter Plan of Treatment Not on file documented as of this encounter Visit Diagnoses Not on filedocumented in this encounter Care Teams Dietary Manager Relationship Specialty Start Date End Date Callie Lawson FNP [address] [place] [address] PCP - General Family Medicine 10/14/22 [place] [address] 01/27/23 10/11/23 documented as of this encounter
--- OUTSIDE RECORDS SUMMARY | 2024-06-20 16:30 | XMS_ITS | Encounter Summary ---
Author Organization [employer] Address 75 [facility] 7t [place] [address] Care Team Providers Care On Call Name Role Phone Callie Lawson Primary Care Provider [phone] Encounter Details Date Type Department Care Team ([facility] Contact Info) Description 04/11/2024 Telephone [facility] [address] [place] [phone] Callie Lawson FNP [address] [place] [address] Social History Tobacco Use Types Packs/Day Years [...] - 04/11/2024 5:00 PM EST Yasmin a resident care spec for Concepción Beard on vmail that she would like a call back from [facility] Pts documented in this encounter Plan of Treatment Not on file documented as of this encounter Visit Diagnoses Not on filedocumented in this encounter Care Teams On Call Relationship Specialty Start Date End Date Callie Lawson FNP [address] [place] [address] PCP - General Family Medicine 10/14/22 documented as of this encounter
--- OUTSIDE RECORDS SUMMARY | 2024-06-20 16:30 | XMS_ITS | Encounter Summary ---
Author Organization [employer] Address 75 [facility] 7t [place] [address] Care Team Providers Care Distance Education Director Name Role Phone Callie Lawson Primary Care Provider Farrah Jackman Unavailable Reason for Visit * Reason Comments Med Refill Encounter Details Date Type Department Care Team ([facility] st Contact Info) Description 01/08/[address] [place] [address] Callie Lawson FNP [address] [place] [address] Social History Tobacco Use Types Packs/Day Years [...] on filedocumented in this encounter Care Teams Distance Education Director Relationship Specialty Start Date End Date Callie Lawson FNP [address] [place] [address] PCP - General Family Medicine 10/14/22 Farrah Jackman [address] [place] [address] 01/27/23 10/11/23 documented as of this encounter
== END 2024-06-20 14:10 | disposition home or self-care (01) ==
LOC: HO.HOS 13:46
PROVIDERS: PCP Nurse Practitioner Family; Visit Provider Orthopaedic Surgery
DX: M17.11 Unilateral primary osteoarthritis, right knee (principal)
CPT/HCPCS: 20610

== ENCOUNTER → 2024-06-20 13:46 | Outpatient (BNVA) | payer MEDICARE, SELFPAY | PROVIDERS: PCP Nurse Practitioner Family; Visit Provider Orthopaedic Surgery | DX: M17.11 Unilateral primary osteoarthritis, right knee (principal) | CPT/HCPCS: 20610; J2003; J7323 ==

== ENCOUNTER 2024-06-28 10:06 | Outpatient (AMB) | payer MEDICARE, SELFPAY ==
--- NOTE | 2024-06-28 10:11 | A.OFFVIS_ITS ---
Vital Signs 06/28/24 10:12 Height 5 ft 2 in Weight 252 lb BMI 46.1 Intake Visit Reasons: Inj-Right Knee Euflexxa #3 Intake Note: Kiya is a 68 year old female who presents today for a third dose of Euflexxa gel injection on the right knee. Patient reports she has gotten good relief from the second dose, no longer using a cane. Patient wishes to proceed with her third dose today. Allergies No Known Allergies Allergy (Verified 06/28/24 10:15) Medication List - Last Reconciled 06/28/24 by Sanya Arias MD albuterol sulfate 90 mcg/actuation inhalation cetirizine 10 mg PO DAILY famotidine 20 mg PO DAILY fluticasone furoate-vilanterol 100-25 mcg/dose (Breo Ellipta) 1 ea inhalation DAILY fluticasone furoate-vilanterol 200-25 mcg/dose (Breo Ellipta) 1 inh inhalation DAILY gabapentin 300 mg PO TID hydrochlorothiazide 25 mg PO DAILY lorazepam 0.5 mg PO BEDTIME PRN losartan 100 mg PO DAILY magnesium oxide 250 mg PO DAILY omeprazole 40 mg PO DAILY trazodone 150 mg PO BEDTIME PFSH Surgical History (Updated 07/26/23 @ 09:13 by Sun Samuel CMA) Hx of lumpectomy Hx of cholecystectomy Hx of section Social History (Updated 07/26/23 @ 09:14 by Sun Samuel CMA) Patient Tobacco Use Status: Never used Tobacco 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al status: unemployed 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 Physical Exam Vital Signs: BMI result Body Mass Index 46.1 Extrem Other: Right knee examination shows a minimal effusion, mild crepitus with range of motion, pain with range of motion, no instability Office Procedures AMB Joint Injection/Aspiration Joint Injection/Aspiration Primary Site: right knee Prep: site was prepped using aseptic technique Injected: 20 mg of (Euflexxa viscosupplementation) and 1% plain lidocaine Procedure: The patient tolerated the procedure well Coding 31770 - Large joint Procedure code (CPT) selection complete Results Reviewed Results Reviewed: X-rays of the patient's right knee show joint space narrowing, subchondral sclerosis, no acute bony abnormalities Assessment & Plan Assessment & Plan (1) Osteoarthritis of right knee: Code(s): M17.11 - Unilateral primary osteoarthritis, right knee Category: Medical Plan Ms. Fragoso presents with right knee pain due to osteoarthritis. The risks and be nefits of a 3rd Euflexxa viscosupplementation injection were discussed at length with the patient. The patient wishes to proceed. She tolerated the injection well. She will continue with her home exercise program. She will follow up with me on an as-needed basis should her symptoms not plateau at an unacceptable level over the next few months. Feel free to call me at any time should questions regarding her orthopedic management arise. I spent 21 minutes in reviewing the patient's records and imaging studies, seeing the patient and documenting in the medical record. Orders: Orders AMB Joint Injection/Aspiration Today M17.11 - Unilateral primary osteoarthritis, right knee Coding Level of Care Code Est Pt Level 3 (74798) Complex EM visit Add On G2211 Diagnoses Osteoarthritis of right knee M17.11 CPT Codes Coding - 66665 Large joint: 66937 - Large joint ([id number])
[2024-06-28 10:12] VITALS: BMI 46.1
--- OUTSIDE RECORDS SUMMARY | 2024-06-28 10:55 | XMS_ITS | Data Portability ---
Author Organization [facility] [employer] [employer] Address [address] [place] [address] [place] [address] Care Team Providers Care Cable Splicer Assistant Name Role Phone MARK WINTERS Referring Provider [...] on rate), blood - R70.0 2022 023 [employer] [facility] (Centralized Electronic Ordering - All Locations), Patient Can Go To The Location Of Their Choice, [address] 08:09:47 calcium, serum or plasma - E83.50 2022 023 [employer] [facility] (Centralized Electronic Ordering - All Locations), [...] screen, EIA/ollie, serum - A69.20 2022 023 [facility] (Centralized Electronic Ordering - All Locations), Patient Can Go To The Location Of Their Choice, 3 12:10:22 C-reactive protein, quantitativ e, serum or plasma - R79.82 2022 023 [facility] (Centralized Electronic Ordering - All Locations), Patient Can Go To The Location Of Their Choice, 19:45:12 CK (creatine kinase), total, serum - R74.8 2022 023 [facility] (Centralized Electronic Ordering - All Locations), Patient Can Go To The Location Of Their Choice, 19:45:11 selenium, serum or plasma - E59 2022 023 [facility] (Centralized Electronic Ordering - All Locations), Patient Can Go To The Location Of Their Choice, 12:10:22 testosteron e, total, serum - Z13.29 2022 023 [facility] (Centralized Electronic Ordering - All Locations), Patient Can Go To The Location Of Their Choice, 20:42:04 vitamin B6 (pyridoxine ), plasma - E67.2 2022 023 [facility] (Centralized Electronic Ordering - All Locations), Patient Can Go To The Location Of Their Choice, 3 16:07:37 homocystein e, serum or plasma - D51.9 2022 023 [facility] (Centralized Electronic Ordering - All Locations), Patient Can Go To The Location Of Their Choice, 3 19:12:18 mma (methylmalo skip acid), serum - D51.9 2022 023 [facility] (Centralized Electronic Ordering - All Locations), Patient Can Go To The Location Of Their Choice, 17:06:12 vitamin B12, serum - d51.9 2022 023 [facility] (Centralized Electronic Ordering - All Locations), Patient Can Go To The Location Of Their Choice, 20:42:06 folate, serum - d51.9 2022 023 [facility] (Centralized Electronic Ordering - All Locations), [...] By Organization Details Last Modified Time 02/02/2023 37213 Discussion acros s issues of diagnoses and management and same day associated chart review and management greater than 50% greater than 60 minutes mrossen Not available 02/02/2023 10:17:50 02/21/2023 93114 Discussion acros s issues of diagnoses and [...] Go To The Location Of Their Choice, [address] 02/04/2023 19:12:18 02/05/2002/04/2023 PTH, INTAC T PTH, intact 79 pg/mL (15-65 ) high Not Available [facility] (Centralized Electronic Ordering - All Locations) Patient Can Go To The Location Of Their Choice, [address] 02/04/2023 19:27:51 02/05/2002/04/2023 CALCI UM calcium 9.9 [...] by [facility], [address] [place] [address] Not Available [facility] (Centralized Electronic Ordering - [...] . Testi ng perfo rmed by the [employer] ex 2200 multi plex flow [...] e delphine cteri stics deter mined by [employer]. It has not been clear ed or appro piotr by the Food and Drug Admin istra tion. Defic iency : <3.4 Mariah nal: 3.4 - 5.1 Adequ ate: >5.1 Test perfo rmed at [facility] , [address] [place] [address] Not Available [facility] (Centralized Electronic Ordering - All Locations) Patient Can Go To The Location Of Their Choice, [facility] 02/10/2023 16:07:37 02/05/2002/10/2023 METHY LMALO SKIP ACID, SERUM methylmaloni c acid, serum 304 Refer ence range : 0 to 378 Unit: nmol/ L (NOTE ) This test was devel oped and its perfo rmanc e delphine cteri stics deter mined by [facility]. It has not been clear ed or appro piotr by the Food and Drug Admin istra tion. Test [facility]fo [facility]med at [facility] , [address] [place] [address] Not Available [facility] (Centralized Electronic Ordering - All Locations) Patient Can Go To The Location Of Their Choice, [facility] 02/10/2023 17:06:12 02/05/2002/13/2023 MAGNE SIUM RBC magnesium, RBC 4.2 Refer ence range : 3.7 to 7.0 Unit: mg/dL (NOTE ) This test was devel oped and its perfo rmanc e delphine cteri stics deter mined by [facility]. It has not been clear ed or appro piotr by the Food and Drug Admin istra tion. Ple ase note refer ence inter chio brewster e Test perfo rmed at [facility] , [address] [place] [address] Not Available [facility] (Centralized Electronic Ordering - All Locations) Patient Can Go To The Location Of Their Choice, [facility] 02/13/2023 21:05:42 Result Notes None [...] Updated DateTime 02/02/2023 154.94 cm 48.4 kg/m2 820040.6 5 g 12 /min [facility] 02/02/2023 08:51:22 Social History Question Answer Notes LastModified by Organizat ion Details LastModified Time Tobacco Smoking Status Never Smoker [facility] 02/02/2023 08:56:31 What Is Your Level Of Alcohol Consumption? None Information not available 02/02/2023 What Is Your Level Of Caffeine Consumption? Moderate 2 Information not available 02/02/2023 What Is The Highest Grade Or Level Of School You Have Completed Or The Highest Degree You Have Received? [id number] Information not available 02/02/2023 Which Of Your [...] SNOMED-CT Code Diagnosis ICD10 Code Diagnosis Note 70042 Yash Castillo MD [facility] [address] [place] [address] [place] [address] 02/02/2023 08:38:31 02/02/2023 10:43:30 Idiopathic peripheral neuropathy 00057042 G60.3 20414 Yash Castillo MD [facility] [address] [place] [address] [place] [address] 02/21/2023 11:18:04 02/21/2023 17:14:29 Idiopathic peripheral neuropathy 13308822 G60.3 Health Concerns Section Related Observation LastModified by Organization Detai ls LastModified Time None Recorded Concern Status LastModified by Organization Details LastModified Time None Recorded Advance Directives Directive None Recorded Payers Encounter Date Sequence Insurance Name Policy Number Policy [place] Covered Member ID [place] Member ID Guarantor Name 02/02/2023 1 [facility] [facility] (MEDICARE REPLACEMENT PPO) Kiya Fragoso [id number] Kiya Fragoso 02/21/2023 1 [employer] (MEDICARE REPLACEMENT PPO) Kiya Fragoso [id number] Kiya Fragoso Notes Date Note Type Note [...] passing ~3 years ago. Yash Castillo MD [address] [place] [address], [phone] 02/02/2023 10:20:00 02/21/2023 text/html Neurology follow -up [...] passing ~3 years ago. Yash Castillo MD [address] [place] [address] [place], [address], [facility] Neurology [facility] 02/21/2023 12:36:41 OBGyn Episode No OBEpisode recorded.
--- OUTSIDE RECORDS SUMMARY | 2024-06-28 10:55 | XMS_ITS | Encounter Summary ---
Author Organization [employer] Address [address] [facility] 7t [place] [address] Care Team Providers Care Mortgage Originator Name Role Phone Callie Lawson Primary Care Provider [phone] Farrah Jackman Unavailable Encounter Details Date Type Department Care Team ([facility] Contact Info) Description 12/24/2022 Orders Only [facility] [address] [place] [phone] Callie Lawson FNP [address] [place] [address] Abnormal renal function finding (Primary Dx) Social [...] Primary documented in this encounter Care Teams Mortgage Originator Relationship Specialty Start Date End Date Callie Lawson FNP [address] [place] [address] PCP - General Family Medicine 10/14/22 Farrah Jackman [facility] [place] [address] 01/27/23 10/11/23 documented as of this encounter
--- OUTSIDE RECORDS SUMMARY | 2024-06-28 10:55 | XMS_ITS | Encounter Summary ---
Author Organization [employer] Address [address] [facility] 7t [place] [address] Care Team Providers Care Gift Shop Manager Name Role Phone Callie Lawson JENNI Primary Care Provider [phone] Farrah Jackman Unavailable Encounter Details Date Type Department [facility] Description 09/28/[address] [facility] Information Management [address] [place], [place] [phone] Provider, Not In System Social History Tobacco [...] on filedocumented in this encounter Care Teams Gift Shop Manager Relationship Specialty Start Date End Date Callie Lawson FNP [address] [place] [address] PCP - General Family Medicine 10/14/22 Farrah Jackman [address] [place] [address] 01/27/23 10/11/23 documented as of this encounter
--- OUTSIDE RECORDS SUMMARY | 2024-06-28 10:55 | XMS_ITS | Encounter Summary ---
Author Organization [employer] Address [address] [facility] 7t [place] [address] Care Team Providers Care Bandoleer Straightener Stamper Name Role Phone Callie Lawson Primary Care Provider [phone] Encounter Details Date Type Department Care Team ([facility] Contact Info) Description 10/19/2023 Telephone [facility] [address] [place] [phone] Callie Lawson FNP [address] [place] [address] Social History Tobacco Use Types Packs/Day Years [...] the past 12 months, has t he [employer], gas, oil or water company threatened to [...] expiring. Please use today's date. Fax # [phone] Order was for physical therapy for balance problems. documented in this encounter Plan of Treatment Not on file documented as of this encounter Visit Diagnoses Not on filedocumented in this encounter Care Teams Bandoleer Straightener Stamper Relationship Specialty Start Date End Date Callie Lawson FNP [address] [place] [address] PCP - General Family Medicine 10/14/22 documented as of this encounter
--- OUTSIDE RECORDS SUMMARY | 2024-06-28 10:55 | XMS_ITS | Encounter Summary ---
Author Organization [employer] Address [address] [facility] [place] [facility] 7t [place] [address] Care Team Providers Care Optical Instrument Repairer Name Role Phone Callie Lawson Primary Care Provider [phone] Farrah Jackman Unavailable Encounter Details Date Type Department Care Team ([facility] Contact Info) Description 10/14/2022 Orders Only [facility] [address] [facility] [address] [place] [address] Marli Cornejo MD [address] [place] [address] Social History Tobacco Use Types Packs/Day Years [...] on filedocumented in this encounter Care Teams Optical Instrument Repairer Relationship Specialty Start Date End Date Callie Lawson FNP [address] [place] [address] PCP - General Family Medicine 10/14/[address] [place] [address] 01/27/23 10/11/23 documented as of this encounter
--- OUTSIDE RECORDS SUMMARY | 2024-06-28 10:55 | XMS_ITS | Encounter Summary ---
Author Organization [employer] Address [address] [facility] 7t [place] [address] Care Team Providers Care Digital Account Coordinator Name Role Phone Callie Lawson Primary Care Provider [phone] Farrah Jackman Unavailable Encounter Details Date Type Department Care Team ([facility] st Contact Info) Description 07/13/2023 Telephone [facility] [address] [facility] [address] [place] [address] Callie Lawson FNP [address] [place] [address] Social History Tobacco Use Types Packs/Day Years [...] requesting we send her referral to an integrity specialist closer to her, she said she found one in [facility], she wasn't sure of the name, but their phone number is [phone] documented in this encounter Plan of Treatment Not on file documented as of this encounter Visit Diagnoses Not on filedocumented in this encounter Care Teams Digital Account Coordinator Relationship Specialty Start Date End Date Callie Lawson FNP [address] [place] [address] PCP - General Family Medicine 10/14/22 [place] [address] 01/27/23 10/11/23 documented as of this encounter
--- OUTSIDE RECORDS SUMMARY | 2024-06-28 10:55 | XMS_ITS | Encounter Summary ---
Author Organization [employer] Address [address] [facility] 7t [place] [address] Care Team Providers Care Financial Writer Name Role Phone Callie Lawson JENNI Primary Care Provider [phone] Farrah Jackman Unavailable Reason for Visit * Reason Comments Med Refill Encounter Details Date Type Department Care Team (Late st Contact Info) Description 10/14/2022 Refill [facility] [address] [facility] [address] [place] [address] Sushila Abrams FNP 119 [place] [address] Social History Tobacco Use Types Packs/Day Years [...] on filedocumented in this encounter Care Teams Financial Writer Relationship Specialty Start Date End Date Callie Lawson FNP [address] [place] [address] PCP - General Family Medicine 10/14/22 Farrah Jackman 119 [place] [address] 01/27/23 10/11/23 documented as of this encounter
--- OUTSIDE RECORDS SUMMARY | 2024-06-28 10:55 | XMS_ITS | Encounter Summary ---
Author Organization [employer] Address [address] [facility] 7t [place] [address] Care Team Providers Care Gold Prospector Name Role Phone Callie Lawson JENNI Primary Care Provider [phone] Farrah Jackman Unavailable Reason for Visit * Reason Comments Med Refill Encounter Details Date Type Department Care Team ([facility] st Contact Info) Description 10/14/2022 Refill [facility] [address] [facility] [address] [place] [address] Sushila Abrams FNP [address] [place] [address] Social History Tobacco Use Types Packs/Day Years [...] on filedocumented in this encounter Care Teams Gold Prospector Relationship Specialty Start Date End Date Callie Lawson FNP [address] [place] [address] PCP - General Family Medicine 10/14/22 Farrah Jackman 119 [place] [address] 01/27/23 10/11/23 documented as of this encounter
--- OUTSIDE RECORDS SUMMARY | 2024-06-28 10:55 | XMS_ITS | Encounter Summary ---
Author Organization [employer] Address [address] [facility] 7t [place] [address] Care Team Providers Care Entry Level Mechanical Engineer Name Role Phone Callie Lawson Primary Care Provider [phone] Encounter Details Date Type Department Care Team ([facility] Contact Info) Description 11/07/[address] [facility] [address] [place] [phone] Callie Lawson FNP [address] [place] [address] Social History Tobacco Use Types Packs/Day Years [...] Please reach out to the pt @ #[phone] documented in this encounter Plan of Treatment Not on file documented as of this encounter Visit Diagnoses Not on filedocumented in this encounter Care Teams Entry Level Mechanical Engineer Relationship Specialty Start Date End Date Callie Lawson FNP [address] [place] [address] PCP - General Family Medicine 10/14/22 documented as of this encounter
--- OUTSIDE RECORDS SUMMARY | 2024-06-28 10:55 | XMS_ITS | Clinical Summary ---
Author Organization [facility] Address [address] [place] [address] Care Team Providers Care Tower Hand Name Role Phone Unknown Primary Care Provider [phone] Social History Tobacco Use Types Packs/Day Years [...] age to complete this topic Care Teams Tower Hand Relationship Specialty Start Date End Date Unknown Unknow Provider Address PCP - General 07/27/20
--- OUTSIDE RECORDS SUMMARY | 2024-06-28 10:55 | XMS_ITS | Encounter Summary ---
Author Organization [facility] Address [address] [place] [address] Phone Care Team Providers Care Bisque Finisher Name Role Phone Callie Lawson Primary Care Provider [phone] Encounter Details Date Type Department Care Team (Late st Contact Info) Description 05/02/2024 Documentation Only [facility], [address] [place] [place] [address] Dawna [place]LIN [place], [place] [address] [place] [address] Social History Tobacco Use Types [...] Office Visit [facility] [address] [address] Hortensia Ball DO [address] [place] [address] documented as of this encounter Visit Diagnoses Not on filedocumented in this encounter Care Teams Bisque Finisher Relationship Specialty Start Date End Date Callie Lawson FNP [address] [place] [address] PCP - General Nurse Practitioner 05/02/24 documented as of this encounter
--- OUTSIDE RECORDS SUMMARY | 2024-06-28 10:55 | XMS_ITS | Encounter Summary ---
Author Organization [employer] Address [address] [facility] 7t [place] [address] Care Team Providers Care Secretarial Teacher Name Role Phone Callie Lawson Primary Care Provider [phone] Encounter Details Date Type Department Care Team ([facility] Contact Info) Description 04/11/[address] 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 Pts documented in this encounter Plan of Treatment Not on file documented as of this encounter Visit Diagnoses Not on filedocumented in this encounter Care Teams Secretarial Teacher Relationship Specialty Start Date End Date Callie Lawson FNP [address] [place] [address] PCP - General Family Medicine 10/14/22 documented as of this encounter
--- OUTSIDE RECORDS SUMMARY | 2024-06-28 10:55 | XMS_ITS | Encounter Summary ---
Author Organization [employer] Address [address] [place] [address] 7t [place] [address] Care Team Providers Care Project Controls Specialist Name Role Phone Callie Lawson Primary Care Provider [phone] Farrah Jackman Unavailable Reason for Referral * Consultation (Routine) - Canceled Specialty Diagnoses / Procedures Referred By Contkit t Referred To Contact Diagnoses Hematuria, unspecified type Callie Lawson FNP [address] [place] [address] Phone: tel: fax: Provider, Not In System Referral ID Status Reason Start Date Expiration Date Visits Requested Visits Authorized [id number] Canceled Specialty Services Required 08/21/2023 08/20/2024 1 1 Encounter Details Date Type Department Care Team ([facility] st Contact Info) Description 08/17/2023 Orders Only [facility] [address] [place] [phone] Callie Lawson FNP [address] [place] [address] Hematuria, unspecified type (Primary Dx); Obesity (BMI [...] knee documented in this encounter Care Teams Project Controls Specialist Relationship Specialty Start Date End Date Callie Lawson FNP [address] [place] [address] PCP - General Family Medicine 10/14/22 Farrah Jackman [address] [place] [address] 01/27/23 10/11/23 documented as of this encounter
--- OUTSIDE RECORDS SUMMARY | 2024-06-28 10:55 | XMS_ITS | Clinical Summary ---
Author Organization [facility], Address [address] [place] [address] Phone Care Team Providers Care Hand Cooper Helper Name Role Phone Callie Lawson JENNI Primary Care Provider [phone] Allergies Active Allergy Reactions Criticality Noted Date [...] Visit [facility] [address] [address] Hortensia Ball DO Stage 3b chronic kidney disease (HCC) (Primary Dx); Hypertension 05/04/2024 Office Communication [facility], [address] [facility] [place] [phone] Dawna Bedolla MA 05/02/2024 Documentation Only [facility], [address] [facility] [place] [phone] Dawna Bedolla MA from Last 3 Months [...] Visit [facility] [address] [place] [address] Hortensia Ball DO [address] [place] [address] Health Maintenance Due Date Last [...] age to complete this topic Insurance , [address] [id number] [facility] MEDICARE [place]ICAID [place] Care Teams Hand Cooper Helper Relationship Specialty Start Date End Date Callie Lawson FNP [address] [place] [address] PCP - General Nurse Practitioner 05/02/24
--- OUTSIDE RECORDS SUMMARY | 2024-06-28 10:55 | XMS_ITS | Encounter Summary ---
Author Organization [employer] Address 75 [facility] 7t [place] [address] Care Team Providers Care Nuclear Instructor Name Role Phone Callie Lawson Primary Care Provider Encounter Details Date Type Department Care Team ([facility] Contact Info) Description 03/06/[address] [facility] [address] [place] [phone] Callie Lawson FNP 102 [place] [address] Social History Tobacco Use Types Packs/Day Years [...] When this has been done. Call back #[phone] documented in this encounter Plan of Treatment Not on file documented as of this encounter Visit Diagnoses Not on filedocumented in this encounter Care Teams Nuclear Instructor Relationship Specialty Start Date End Date Callie Lawson FNP [address] [place] [address] PCP - General Family Medicine 10/14/22 documented as of this encounter
--- OUTSIDE RECORDS SUMMARY | 2024-06-28 10:55 | XMS_ITS | Encounter Summary ---
Author Organization [employer] Address 75 [facility] 7t [place] [address] Care Team Providers Care Testing Manager Name Role Phone Callie Lawson Primary Care Provider [phone] Farrah Jackman Unavailable Reason for Visit * Reason Comments Med Refill Encounter Details Date Type Department Care Team ([facility] st Contact Info) Description 01/08/[address] [place] [address] Callie Lawson FNP 102 [place] [address] Social History Tobacco Use Types Packs/Day Years [...] on filedocumented in this encounter Care Teams Testing Manager Relationship Specialty Start Date End Date Callie Lawson FNP [address] [place] [address] PCP - General Family Medicine 10/14/22 Farrah Jackman [address] [place] [address] 01/27/23 10/11/23 documented as of this encounter
--- OUTSIDE RECORDS SUMMARY | 2024-06-28 10:55 | XMS_ITS | Encounter Summary ---
Author Organization [employer] Address 75 [facility] 7 [place] [address] Care Team Providers Care Hospital Aide Name Role Phone Callie Lawson Primary Care Provider [phone] Reason for Referral * Consultation (Routine) - Authorized Specialty Diagnoses / Procedures Referred By Contkit t Referred To Contact Diagnoses Stage 3 chronic kidney disease, unspecified whether stage 3a or 3b CKD (CMS/HCC) Callie Lawson FNP [address] [place] [address] Phone: tel: fax: Yash Meza [address] [place] [address] Phone: tel: fax: Referral ID Status Reason Start Date Expiration Date Visits Requested Visits Authorized [id number] Authorized Specialty Services Required 04/24/2024 04/24/2025 6 6 Encounter Details Date Type Department Care Team ([facility] st Contact Info) Description 04/23/2024 Orders Only [facility] [address] [place] [address] Callie Lawson FNP [address] [place] [address] Stage 3 chronic kidney disease, unspecified whether [...] Hypercalcemia documented in this encounter Care Teams Hospital Aide Relationship Specialty Start Date End Date Callie Lawson FNP [address] [place] [address] PCP - General Family Medicine 10/14/22 documented as of this encounter
--- OUTSIDE RECORDS SUMMARY | 2024-06-28 10:55 | XMS_ITS | Clinical Summary ---
Author Organization [employer] Address 75 [facility] 7t [place] [address] Care Team Providers Care Utility System Operator Name Role Phone Callie Lawson JENNI Primary Care Provider [phone] Allergies Active Allergy Reactions Criticality Noted Date [...] alternative to albuterol. - Follow up with dashboard developer, last appointment one year prior - Discussed [...] Department Care Team Description 06/19/2024 Orders Only [address] [phone] Callie Lawson FNP 06/19/[address] [address] Callie Lawson FNP 06/07/[address] [address] Callie Lawson FNP Anxiety 05/31/2024 11:30 AM EST [facility] [address] [address] Carla Boogie 05/24/2024 1:40 PM EST Office Visit [address] [address] Callie Lawson FNP Abscess (Primary Dx); Current mild episode of major depressive disorder without prior episode (CMS/[facility]); Stress incontinence of urine 05/24/2024 Orders Only [address] [address] Callie Lawson FNP 05/24/[address] [address] Callie Lawson FNP 05/09/2024 9:30 AM EST [facility] 119 [facility] 200 [place] [address] Carla Boogie 04/25/2024 11:00 AM EST [facility] 119 [facility] 200 [place] [address] Carla Boogie 04/23/2024 Orders Only [address] [address] Callie Lawson FNP Stage 3 chronic kidney disease, unspecified whether stage 3a or 3b CKD (CMS/HCC) (Primary Dx); Hypercalcemia 04/20/2024 10:40 AM EST Office Visit [address] [address] Callie Lawson FNP Prediabetes (Primary Dx); Neuropathy 04/11/[address] [address] Callie Lawson FNP from Last [...] Culture, Aerobic Bacteria SEE NOTE [facility] Comment: ??CULTURE, AEROBIC BACTERIA ?Micro Number: ?[id number] ??Test Status: ? Final ??Specimen Source: ?? Breast, left ??Specimen Quality: ??Adequate ??Result: ?No Growth 05/24/2024 3:09 PM EST 05/24/2024 3:10 PM EST Narrative [facility] - 05/27/2024 8:39 AM EST FASTING:UNKNOWN FASTING: UNKNOWN Callie Lawson [facility] MICROBIOLOGY - GENERAL ORDER TREY Final Result Performing Organization Address [facility] de Phone Number [address], [place] [address] pushd [place] [facility] [address] [place] [phone] * Albumin, Random Urine W/Creatinine (04/20/2024 11:19 AM EST) Creatinine, Random Urine 96 20 - 275 mg/dL pushd [place] [facility] Albumin, Urine <0.2 See Note: mg/dL pushd [place] [facility] Comment: Reference Range: Reference Range Not established Albumin/Creatinin e Ratio, Random Urine NOTE <30 mg/g creat pushd [place] [facility] Comment: NOTE: The urine albumin value is [...] ORDERABLES Final Resul t Performing Organization Address [facility] de Phone Number [address], [place] [address] pushd [place] [facility] [address] [place] [address] * (ABNORMAL) CBC (04/20/2024 11:19 AM EST) [facility] White Blood Cell Count 10.3 3.8 - 10.8 Thousand/ uL [facility]d [place] [facility] Red Blood Cell Count 4.83 3.80 - 5.10 Million/u L [facility]d [place] [facility] Hemoglobin 13.7 11.7 - 15.5 g/dL [facility]d [place] [facility] Hematocrit 43.5 35.0 - 45.0 % pushd [place] [facility] MCV 90.1 80.0 - 100.0 fL [facility]d [place] [facility] MCH 28.4 27.0 - 33.0 pg pushd [place] [facility] MCHC 31.5(L) 32.0 - 36.0 g/dL [facility]d [place] [facility] Comment: For adults, a slight decrease in the calculated MCHC value (in the range of 30 to 32 g/dL) is most likely not clinically significant; however, it should be interpreted with caution in correlation with other red cell parameters and the patient's clinical condition. RDW 12.6 11.0 - 15.0 % [facility]d [place] [facility] Platelet Count 274 140 - 400 Thousand/ uL [facility]d [place] [facility] MPV 10.3 7.5 - 12.5 fL [facility] [place] [facility] Blood Venous blood specimen / Unknown 04/20/2024 11:19 AM EST 04/20/2024 11:19 AM EST Narrative [facility] - 04/21/2024 7:23 PM EST FASTING:NO FASTING: NO us Callie Lawson [facility] BLOOD ORDERABLES Final Resul t [facility] [address], [facility] [place] [address] pushd [place] [facility] [address] [place] [address] * Uric acid (04/20/2024 11:19 AM EST) [facility] Uric Acid 6.5 2.5 - 7.0 mg/dL pushd [place] [facility] Comment: Therapeutic target for gout patients: <6.0 mg/dL ?? Blood Venous blood specimen / Unknown 04/20/2024 11:19 AM EST 04/20/2024 11:19 AM EST Narrative [facility] - 04/21/2024 7:23 PM EST FASTING:NO FASTING: NO Callie Lawson [facility] BLOOD ORDERABLES Final Resul t Performing Organization Address [facility] de Phone Number [facility] [address], [facility] [place] [address] [facility] [address] [place] [address] * Hemoglobin A1c (04/20/2024 11:19 AM EST) [facility] Hemoglobin A1c 5.4 <5.7 % of total Hgb pushd [place] [facility] Comment: For the purpose of screening for the presence of diabetes: <5.7% ? Consistent with the absence of diabetes 5.7-6.4% ?Consistent with increased risk for diabetes ?(prediabetes) > or =6.5% ??Consistent with diabetes This assay result is consistent with a decreased risk of diabetes. Currently, no consensus exists regarding use of hemoglobin A1c for diagnosis of diabetes in children. According to [place] Diabetes Association (ADA) guidelines, hemoglobin A1c <7.0% [...] ORDERABLES Final Resul t Performing Organization Address [facility]/ZIP Co de Phone Number [address], [place] [address] [facility] [address] [place] [address] * Vitamin B12 (04/20/2024 11:19 AM EST) [facility] Vitamin B12 379 200 - 1,100 pg/mL pushd [place] [facility] Comment: Please Note: Although the reference range [...] EST FASTING:NO FASTING: NO us Callie Lawson [facility] BLOOD ORDERABLES [facility] Organization Address City/State/ZIP Co de Phone Number [facility] [address], [place] [address] pushd [place] [employer] [address] [place] [address] * (ABNORMAL) Lipid Panel, Standard (04/20/2024 11:19 AM EST) [facility] Cholesterol, Total 210(H) <200 mg/dL pushd [place] [facility] HDL Cholesterol 74 > OR = 50 mg/dL [facility]d [place] [facility] Triglycerides 139 <150 mg/dL pushd [place] [facility] LDL Cholesterol 111(H) mg/dL [facility] [employer] [place] [facility] Comment: Reference range: <100 Desirable range <100 mg/dL for primary prevention; ?? <70 mg/dL for patients with CHD or diabetic patients with > or = 2 CHD risk factors. LDL-C is now calculated using the Debbie calculation, which is a validated novel method providing better accuracy than the Friedewald equation in the estimation of LDL-C. Pipe MADERA et al. DAINA. 2013;310(19): 6587-8653 (http://education.Avancen MOD.Zerve/faq/VHZ507) Chol/HDLC Ratio 2.8 <5.0 (calc) pushd [place] [facility] Non-HDL Cholesterol 136(H) <130 mg/dL pushd [place] [facility] Comment: For patients with diabetes plus 1 major ASCVD risk factor, treating to a non-HDL-C goal of <100 mg/dL (LDL-C of <70 mg/dL) is considered a therapeutic option. Blood Venous blood specimen / Unknown 04/20/2024 11:19 AM EST 04/20/2024 11:19 AM EST Narrative [facility] - 04/21/2024 7:23 PM EST FASTING:NO FASTING: NO us Callie Lawson [facility] BLOOD ORDERABLES Final Resul t [facility] [address], [place] [address] pushd [place] [facility] [address] [place] [address] * (ABNORMAL) Comprehensive Metabolic Panel (04/20/2024 11:19 AM EST) Glucose 88 65 - 139 mg/dL pushd [place] [facility] Comment: ? Non-fasting reference interval Urea Nitrogen (BUN) 24 7 - 25 mg/dL pushd [place] [facility] Creatinine, Serum 1.47(H) 0.50 - 1.05 mg/dL pushd [place] [facility] eGFR 39(L) > OR = 60 mL/min/1. 73m2 pushd [place] [facility] BUN/Creatinine Ratio 16 6 - 22 (calc) pushd [place] [facility] Sodium 140 135 - 146 mmol/L pushd [place] [facility] Potassium 4.3 3.5 - 5.3 mmol/L pushd [place] [facility] Chloride 100 98 - 110 mmol/L [facility]d [place] [facility] Carbon Dioxide 31 20 - 32 mmol/L pushd [place] [facility] Calcium 10.5(H) 8.6 - 10.4 mg/dL pushd [place] [facility] Protein, Total 7.4 6.1 - 8.1 g/dL [facility]d [place] [facility] Albumin 4.4 3.6 - 5.1 g/dL [facility] [place] [facility] Globulin 3.0 1.9 - 3.7 g/dL (calc) [facility] [place] [facility] [employer] Albumin/Globuli n Ratio 1.5 1.0 - 2.5 (calc) [facility] [place] [facility] Bilirubin, Total 0.4 0.2 - 1.2 mg/dL [facility] [place] [facility] Alkaline Phosphatase 77 37 - 153 U/L [facility] [place] [facility] AST 20 10 - 35 U/L [facility] [place] [facility] [employer] ALT 16 6 - 29 U/L [facility] [place] [facility] Blood Venous blood specimen / Unknown 04/20/2024 11:19 AM EST 04/20/2024 11:19 AM EST Narrative [facility] - 04/21/2024 7:23 PM EST FASTING:NO FASTING: NO Callie Lawson [facility] BLOOD ORDERABLES Final Resul t Performing Organization Address City/State/[facility] Co de Phone Number [facility] [address], [place] [address] pushd [place] [facility] [address] [place] [address] * BI Mammogram Screening Tomosynthesis Bilateral (03/08/2024 [...] (Benign) Lay letter mailed to patient WSN: [id number] Ordering Physician: Callie Lawson Dictated By: ?Veda Riley MD Dictated Date/Time: ?03/08/24 3:01 pm Reviewed By: ?Veda Riley MD Signed By: ? Veda Riley MD Signed Date/Time: ? 03/08/24 3:01 pm Transcribed By: ? CSB Hotel Houseman Date/Time: ? 03/08/24 2:29 pm Birads: Procedure Note Donotuseinterpreter, Image - 03/08/2024 PROCEDURE: MM Digital Mammo Screening INDICATION: Screening for breast cancer. No known palpableabnormalities. Personal history of LEFT breast cancer with lumpectomy and radiation [id number]. COMPARISON: Prior mammograms dating back to 12/27/2014. [...] (Benign) Lay letter mailed to patient WSN: [id number] Ordering Physician: Callie Lawson Dictated By: Veda Riley MD Dictated Date/Time: 03/08/24 3:01 pm Reviewed By: Veda Riley MD Signed By: Veda Riley MD Signed Date/Time: 03/08/24 3:01 pm Transcribed By: KELLY Hotel Houseman Date/Time: 03/08/24 2:29 pm Birads: Callie ARTEAGA IMG BI PROCEDURES Final Result from Last 3 Months or Most Recently Relevant to Health Maintenance [place] [place] [address] [facility] Care Teams Utility System Operator Relationship Specialty Start Date End Date Callie Lawson FNP [address] [place] [address] PCP - General Family Medicine 10/14/22
--- OUTSIDE RECORDS SUMMARY | 2024-06-28 10:56 | XMS_ITS | Encounter Summary ---
Author Organization [employer] Address 75 [facility] 7t [place] [address] Care Team Providers Care Import Customs Clearing Agent Name Role Phone Callie Lawson Primary Care Provider [phone] Farrah Jackman Unavailable Encounter Details Date Type Department Care Team ([facility] Contact Info) Description 06/16/2023 Telephone [facility] [address] [place] [address] Callie Lawson FNP 102 [place] [address] Social History Tobacco Use Types Packs/Day Years [...] on filedocumented in this encounter Care Teams Import Customs Clearing Agent Relationship Specialty Start Date End Date Callie Lawson FNP [address] [place] [address] PCP - General Family Medicine 10/14/22 Farrah Jackman [address] [place] [address] 01/27/23 10/11/23 documented as of this encounter
--- OUTSIDE RECORDS SUMMARY | 2024-06-28 10:56 | XMS_ITS | Encounter Summary ---
Author Organization [employer] Address 75 [facility] 7t [place] [address] Care Team Providers Care Board Certified Arts Therapist Name Role Phone Callie Lawson Primary Care Provider [phone] Encounter Details Date Type Department Care Team ([facility] Contact Info) Description 06/19/2024 Telephone [facility] [address] [place] [phone] Callie Lawson FNP [address] [place] [address] Social History Tobacco Use Types Packs/Day Years [...] encounter Miscellaneous Notes * Telephone Encounter - Primo Waite MA - 06/25/2024 2:18 PM EDT [employer]meet message sent to pt t [facility] did not accept the order (does not work with her insurance.) Let her know the timeline can take weeks for DME orders and I will contact her with the info for the company that accepts the order. * Telephone Encounter - Primo Waite MA - 06/22/2024 7:54 AM EDT Order was done the day before she called. These can take weeks to process. Will follow up Tuesday. * Telephone Encounter - Tiffanie Buchanan - 06/20/2024 12:42 PM EDT Patient left a voicemail to check the status of the pull-up request with original home care * Telephone Encounter - Gardenia Miles LPN - 06/19/2024 9:46 AM EDT Spoke to pt stated needs script for XL pull ups to be sent to [facility]. * Telephone Encounter - Jacki Segundo - 06/19/2024 9:09 AM EDT Patient is calling looking for a call back from a nurse regarding a prescription Call back# [phone] documented in this encounter Plan of Treatment Not on file documented as of this encounter Visit Diagnoses Not on filedocumented in this encounter Care Teams Board Certified Arts Therapist Relationship Specialty Start Date End Date Callie Lawson FNP [address] [place] [address] PCP - General Family Medicine 10/14/22 documented as of this encounter
--- OUTSIDE RECORDS SUMMARY | 2024-06-28 10:56 | XMS_ITS | Encounter Summary ---
Author Organization [employer] Address 75 [facility] 7t [place] [address] Care Team Providers Care Cabin Man Name Role Phone Callie Lawson Primary Care Provider [phone] Encounter Details Date Type Department [facility] Description 06/19/2024 [facility] [address] [place] [phone] Callie Lawson FNP [address] [place] [address] Social History Tobacco Use Types Packs/Day Years [...] on filedocumented in this encounter Care Teams Cabin Man Relationship Specialty Start Date End Date Callie Lawson FNP [address] [place] [address] PCP - General Family Medicine 10/14/22 documented as of this encounter
== END 2024-06-28 10:36 | disposition home or self-care (01) ==
LOC: HO.HOS 10:07
PROVIDERS: PCP Nurse Practitioner Family; Visit Provider Orthopaedic Surgery
DX: M17.11 Unilateral primary osteoarthritis, right knee (principal)
CPT/HCPCS: 20610; 99213

== ENCOUNTER → 2024-06-28 10:06 | Outpatient (BNVA) | payer MEDICARE, SELFPAY | PROVIDERS: PCP Nurse Practitioner Family; Visit Provider Orthopaedic Surgery | DX: M17.11 Unilateral primary osteoarthritis, right knee (principal) | CPT/HCPCS: 20610; 99212; J2003; J7323 ==

== ENCOUNTER 2024-09-27 08:43 | Outpatient (AMB) | payer MEDICARE, SELFPAY ==
--- NOTE | 2024-09-27 08:44 | MHC.OFFVIS ---
Intake Visit Reasons: OV-RT knee pain f/u Intake Note: Kiya is a 68 year old female who presents with complaints of right knee pain. She describes her pain as sharp in nature. She did have a series of Euflexxa injections earlier this year which gave her temporary relief. She has done physical therapy exercises which aggravated her pain. She has also tried Tylenol and anti-inflammatory medicines which gave her minimal relief. Allergies No Known Allergies Allergy (Verified 09/27/24 08:45) Medication List - Last Reconciled 09/27/24 by Sanya Arias MD albuterol sulfate 90 mcg/actuation inhalation cetirizine 10 mg PO DAILY famotidine 20 mg PO DAILY fluticasone furoate-vilanterol 100-25 mcg/dose (Breo Ellipta) 1 ea inhalation DAILY fluticasone furoate-vilanterol 200-25 mcg/dose (Breo Ellipta) 1 inh inhalation DAILY gabapentin 300 mg PO TID hydrochlorothiazide 25 mg PO DAILY lorazepam 0.5 mg PO BEDTIME PRN losartan 100 mg PO DAILY magnesium oxide 250 mg PO DAILY omeprazole 40 mg PO DAILY trazodone 150 mg PO BEDTIME PFSH Surgical History (Updated 07/26/23 @ 09:13 by Sun Samuel CMA) Hx of lumpectomy Hx of cholecystectomy Hx of section Social History (Updated 07/26/23 @ 09:14 by Sun Samuel CMA) Patient Tobacco Use Status: Never used Tobacco 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al status: unemployed 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 Physical Exam Const Other: Well-nourished well-developed very friendly female awake alert and oriented x3 in no acute distress Extrem Other: Right knee examination shows a minimal effusion, palpable crepitus with range of motion, pain with range of motion, no instability Office Procedures AMB Joint Injection/Aspiration Joint Injection/Aspiration Primary Site: right knee Prep: site was prepped using aseptic technique Injected: 40 mg of, DepoMedrol and 1% plain lidocaine Procedure: The patient tolerated the procedure well Coding 13770 - Large joint Procedure code (CPT) selection complete Results Reviewed Results Reviewed: X-rays of the patient's right knee taken previously show joint space narrowing, subchondral sclerosis Assessment & Plan Assessment & Plan (1) Osteoarthritis of right knee: Code(s): M17.11 - Unilateral primary osteoarthritis, right knee Category: Medical Plan Ms. Fragoso presents with right knee pain due to degenerative joint disease. The risks and benefits of a right knee cortisone injection were discussed at length with the patient. The patient wished to proceed. She tolerated the injection well. She will continue with her home exercise program. She will contact me prior to her follow-up appointment in 3 months should any questions or concerns arise. I spent 22 minutes in reviewing the patient's records and imaging studies, seeing the patient and documenting in the medical record. Orders: Orders AMB Joint Injection/Aspiration Today M17.11 - Unilateral primary osteoarthritis, right knee Coding Level of Care Code Est Pt Level 3 (80543) Complex EM visit Add On G2211 Diagnoses Osteoarthritis of right knee M17.11 CPT Codes Coding - 18434 Large joint: 45348 - Large joint ([id number])
--- OUTSIDE RECORDS SUMMARY | 2024-09-27 08:50 | XMS_ITS | Data Portability ---
Author Organization [facility]ly [facility] [employer], [employer] Address [address] [place] [address] [place] [address] Care Team Providers Care Community Services Officer Name Role Phone MARK WINTERS Referring Provider Unavailable CORRY AMATO Primary Care Provider [phone] Assessment Encounter Date Assessment Date Assessment LastModified [...] see what happens then. She understands. FRANSISCO Kiya Fragoso February 02, 2023 Laboratories: Sedimentation rate, [...] the cardiovascular perspective or other systemic perspective. >>>>>>>>>>>>>>>Nov [email or web address] Neurological exam has not revealed any abnormalities [...] after the blood work abnormalities are addressed. rennyn Not available 02/21/2023 12:35:59 Plan of Treatment Reminders Order Date Submit Date Provider Last Modified By Organization Details Last Modified Time Details Appointments None recorded. Lab ESR (erythrocyt e sedimentati on rate), blood - R70.0 2022 023 JENNYFER [facility] (Centralized Electronic Ordering - All Locations), Patient Can Go To The Location Of Their Choice, [address] 08:09:47 calcium, serum or plasma - E83.50 2022 023 [facility] [facility] (Centralized Electronic Ordering - All Locations), [...] To The Location Of Their Choice, 3 20:42:08 PTH (parathyroi d hormone), intact, serum or plasma - E21.5 2022 023 JENNYFER [facility] (Centralized Electronic Ordering - All Locations), Patient Can Go To The Location Of Their Choice, 3 19:27:57 vitamin D, 25-hydroxy, total, serum - E55.9 2022 023 JENNYFER [facility] (Centralized Electronic Ordering - All Locations), Patient Can Go To The Location Of Their Choice, 3 20:42:10 lyme antibody screen, EIA/ollie, serum - A69.20 [address] [facility] (Central[facility] Ordering - All Locations), Patient Can Go To The Location Of Their Choice, 3 12:10:22 C-reactive protein, quantitativ e, serum or plasma - R79.82 2022 023 [place] [facility] (Centralized Electronic Ordering - All Locations), Patient Can Go To The Location Of Their Choice, 3 19:45:12 CK (creatine kinase), total, serum - R74.8 2022 023 [place] [facility] (Centralized Electronic Ordering - All Locations), Patient Can Go To The Location Of Their Choice, 3 19:45:11 selenium, serum or plasma - E59 2022 023 [facility] (Centralized [facility] Ordering - All Locations), Patient Can Go To The Location Of Their Choice, 3 12:10:22 testosteron e, total, serum - Z13.29 2022 023 [place] [facility] (Centralized Electronic Ordering - All Locations), Patient Can Go To The Location Of Their Choice, 3 20:42:04 vitamin B6 (pyridoxine ), plasma - E67.2 2022 023 [place] [facility] (Centralized Electronic Ordering - All Locations), Patient Can Go To The Location Of Their Choice, 3 16:07:37 homocystein e, serum or plasma - D51.9 2022 023 [place] [facility] (Centralized Electronic Ordering - All Locations), Patient Can Go To The Location Of Their Choice, 3 19:12:18 mma (methylmalo skip acid), serum - D51.9 2022 023 [place] [facility] (Centralized Electronic Ordering - All Locations), Patient Can Go To The Location Of Their Choice, [address] 17:06:12 vitamin B12, serum - d51.9 2022 [...] By Organization Details Last Modified Time 02/02/2023 [id number] Discussion acros s issues of diagnoses and management and same day associated chart review and management greater than 50% greater than 60 minutes [email or web address] Not available 02/02/2023 10:17:50 02/21/2023 07105 Discussion acros s issues of diagnoses and [...] Go To The Location Of Their Choice, [address] 02/04/2023 19:12:18 02/05/2002/04/2023 PTH, INTAC T PTH, intact 79 pg/mL (15-65 ) high Not Available [facility] (Centralized Electronic Ordering - All Locations) Patient Can Go To The Location Of Their Choice, 02/04/2023 19:27:51 02/05/2002/04/2023 CALCI UM calcium 9.9 [...] The Location Of Their Choice, 02/04/2023 20:42:10 02/05/20 23 02/05/2023 SEDIM ENTAT ION RATE, AUTOM ATED sedimentatio [...] perfo rmed by [facility], [address] [place] [address] Not Available [facility] (Centralized Electronic Ordering - [...] . Testi ng perfo rmed by the [facility] [employer] ex 2200 multi plex flow immun oassa y syste m Not Available [facility] (Centralized Electronic Ordering - All Locations) Patient Can Go To The Location Of Their Choice, 02/06/2023 09:35:27 02/05/20 23 02/10/2023 VITAM IN B6 vitamin B6 3.1 low Refer ence range : 3.4 to 65.2 Unit: ug/L (NOTE ) This test was devel oped and its perfo rmanc e delphine cteri stics deter mined by [facility]. It has not been clear ed or appro piotr by the Food and Drug Admin istra tion. Defic iency : <3.4 Mariah nal: 3.4 - 5.1 Adequ ate: >5.1 [facility] , [address] [place] [address] Not Available [facility] (Centralized Electronic Ordering - All Locations) Patient Can Go To The Location Of Their Choice, [facility] 02/10/2023 16:07:37 02/05/2002/10/2023 METHY LMALO SKIP ACID, SERUM methylmaloni c acid, serum 304 Refer ence range : 0 to 378 Unit: nmol/ L (NOTE ) This test was devel oped and its perfo rmanc e delphine cteri stics deter mined by [facility]. It has not been clear ed or appro piotr by the Food and Drug Admin istra tion. [place] [address] Not Available [facility] (Centralized Electronic Ordering - All Locations) Patient Can Go To The Location Of Their Choice, [facility] 02/10/2023 17:06:12 02/05/2002/13/2023 MAGNE SIUM RBC magnesium, RBC 4.2 Refer ence range : 3.7 to 7.0 Unit: mg/dL (NOTE ) This test was devel oped and its perfo rmanc e delphine cteri stics deter mined by [facility]. It has not been clear ed or appro piotr by the Food and Drug Admin istra tion. Ple ase note refer ence inter chio brewster e [facility] , [address] [place] [address] Not Available [facility] (Centralized Electronic Ordering - All Locations) Patient Can Go To The Location Of Their Choice, [facility] 02/13/2023 21:05:42 Result Notes None recorded. [...] Updated DateTime 02/02/2023 154.94 cm 48.4 kg/m2 244565.6 5 g 12 /min [facility] 02/02/2023 08:51:22 Social History Question Answer Notes LastModified by Organizat ion Details LastModified Time Tobacco Smoking Status Never Smoker [facility] 02/02/2023 08:56:31 What Is Your Level Of Caffeine Consumption? Moderate 2 Information not available 02/02/2023 What Is The Highest Grade Or Level Of School You Have Completed Or The Highest Degree You Have Received? [id number] Information not available 02/02/2023 Which Of Your Hands Is Dominant? Left Information not available 02/02/2023 What Is Your Relationship Status? Information not available 02/02/2023 Sex: Unknown Functional Status Question Answer Note LastModified by Organization D etails LastModified Time What is your level of alcohol consumption? None Information not available 02/02/2023 Mental Status None recorded. Family History Relationship [...] SNOMED-CT Code Diagnosis ICD10 Code Diagnosis Note [id number] Yash Castillo MD [address] [place] [address] 02/02/2023 08:38:31 02/02/2023 10:43:30 Idiopathic peripheral neuropathy 04019478 G60.3 [id number] Yash Castillo MD [address] [place] [address] 02/21/2023 11:18:04 02/21/2023 17:14:29 Idiopathic peripheral neuropathy 42218601 G60.3 Health Concerns Section Related Observation LastModified by Organization Detai ls LastModified Time None Recorded Concern Status LastModified by Organization Details LastModified Time None Recorded Advance Directives Directive None Recorded Payers Insurance Date Sequence Insurance Name Policy Number Policy [place] Covered Member ID [place] Member ID Guarantor Name 02/24/2023 1 [employer] (MEDICARE REPLACEMENT PPO) Kiya Fragoso [id number] Kiya Fragoso Notes Date Note Type Note [...] passing ~3 years ago. Yash Castillo MD [address] [place] [address], [phone], [facility] 02/02/2023 10:20:00 02/21/2023 text/html Neurology follow -up [...] passing ~3 years ago. Yash Castillo MD [address] [place] [address] [place], [phone], [facility] 02/21/2023 12:36:41 OBGyn Episode No OBEpisode recorded.
--- OUTSIDE RECORDS SUMMARY | 2024-09-27 08:50 | XMS_ITS | Clinical Summary ---
Author Organization [facility], Address [address] [place] [phone] Phone Care Team Providers Care Airway Traffic Controller Name Role Phone Callie Lawson JENNI Primary Care Provider [phone] Allergies Active Allergy Reactions Criticality Noted Date Comments Pollen Extract 06/22/2022 Medications Cetirizine HCl 10 MG capsule Take by oral route. Active famotidine (PEPCID) 20 MG tablet Take 20 mg by mouth in the morning. 08/15/2023 Active gabapentin (NEURONTIN) 300 MG capsule Take 400 mg by mouth in the morning and 400 mg in the evening and 400 mg before bedtime. Active hydroCHLOROthia zide 25 MG tablet Take 25 mg by mouth 1 (one) time each day 05/19/2022 Active LORazepam (ATIVAN) 0.5 MG tablet TAKE 1 TABLET(0.5 MG) BY MOUTH EVERY 8 HOURS NEEDED FOR ANXIETY 03/16/2024 Active losartan (COZAAR) 100 MG tablet Take 100 mg by mouth in the morning. 08/15/2023 Active omeprazole (PriLOSEC) [address] capsule Take 40 mg by mouth 01/12/2024 Active traZODone (DESYREL) 150 MG tablet TAKE 1 TABLET(150 MG) BY MOUTH AT BEDTIME 08/15/2023 Active Magnesium Oxide -Mg Supplement 250 MG tablet 05/08/2024 Activ e Fluticasone Furoate-Vilante rol (BREO ELLIPTA IN) Inhale Active albuterol HFA (PROVENTIL HFA;VENTOLIN HFA) 108 (90 Base) MCG/ACT inhaler Inhale 2 puffs every 6 (six) hours if needed for wheezing Active pyridoxine (VITAMIN B-6) 25 MG tablet Take 25 mg by mouth 1 (one) time each day Active cholecalciferol (VITAMIN D-3) 25 MCG (1000 UT) capsule Take 1,000 Units by mouth 1 (one) time each day Active Active Problems Problem Noted Date Diagnosed [...] Neurology referral in place. Anxiety 06/22/2022 05/23/2024 Immunizations Immunization Administration Dates Next Due Influenza (IM) Preservative [...] Visit [facility] [address] [place] [phone] Hortensia Ball DO [address] [place] [phone] Health Maintenance Due Date Last Done Comments Breast Cancer Screening 1955 Colorectal Cancer Screening: Annual FOBT 11/18/2004 Colorectal Cancer Screening: Colonoscopy 11/18/2004 Colorectal Cancer Screening: Sigmoidoscopy 11/18/2004 Pneumococcal Vaccine: 50+ Years (2 of 2 - PCV) 02/06/2022 02/06/2021 Influenza Vaccine (#1) 2024 , 01/02/2020, 01/05/2019, Additional history exists Hepatitis B Vaccine Aged Out No longe r eligible based on patient's age to complete this topic Insurance [facility] Medicare Medicaid [place] Care Teams Airway Traffic Controller Relationship Specialty Start Date End Date Callie Lawson FNP [address] [place] [phone] PCP - General Nurse Practitioner 05/02/24
--- OUTSIDE RECORDS SUMMARY | 2024-09-27 08:50 | XMS_ITS | Encounter Summary ---
Author Organization [employer] Address [address] [place] [address] Care Team Providers Care Makeup Instructor Name Role Phone Callie Lawson Primary Care Provider [phone] Encounter Details Date Type Department Care Team ([facility] Contact Info) Description 11/07/[address] [facility] [address] [place] [phone] Callie Lawson FNP [address] [place] [address] Social History Tobacco Use Types Packs/Day Years [...] Please reach out to the pt @ #[phone] documented in this encounter Plan of Treatment Upcoming Encounters Date Type Department Care Team (Late st Contact Info) Description 10/19/2024 10:00 AM EDT Office Visit [facility] [address] [place] [address] Johnny Stein MD [address] [place] [address] documented as of this encounter Visit Diagnoses Not on filedocumented in this encounter Care Teams Makeup Instructor Relationship Specialty Start Date End Date Callie Lawson FNP [address] [place] [phone] PCP - General Family Medicine 10/14/22 documented as of this encounter
--- OUTSIDE RECORDS SUMMARY | 2024-09-27 08:50 | XMS_ITS | Clinical Summary ---
Author Organization [facility] Address [address] [place] [address] Care Team Providers Care Armored Transport Service Manager Name Role Phone Unknown Primary Care Provider [phone] Social History Tobacco Use Types Packs/Day Years Used Date Smoking Tobacco: Never Assessed Comments Unknown Sex and Gender Information Value Date Recorded Sex Assigned at Not on file Legal Sex Female 3:51 PM EDT Gender Identity Not on file Sexual Orientation Not on file Plan of Treatment Health Maintenance Due Date Last Done Comments Hepatitis C Virus Screening 1955 DTaP/Tdap/Td Vaccines (1 - Tdap) 11/18/1974 Mammogram 1995 Colonoscopy 11/18/2000 Pneumococcal Vaccines 50+ (1 of 1 - PCV) 11/18/2005 Zoster (Shingles) Vaccine (1 of 2) 11/18/2005 DXA Bone Density (Females,Ag es 65 and older) 11/18/2020 COVID-19 Vaccine ( - 2023-2 5 season) 2023 Influenza Vaccine 10/26/2024 RSV Vaccine 60 years and old er and Patients (1 - 1-dose 75+ series) 11/18/2030 Hepatitis B Vaccines Aged Out No long er eligible based on patient's age to complete this topic Insurance [facility] Care Teams Armored Transport Service Manager Relationship Specialty Start Date End Date Unknown Unknow Provider Address PCP - General 07/27/20
== END 2024-09-27 09:03 | disposition home or self-care (01) ==
LOC: HO.HOS 08:44
PROVIDERS: PCP Nurse Practitioner Family; Visit Provider Orthopaedic Surgery
DX: M17.11 Unilateral primary osteoarthritis, right knee (principal)
CPT/HCPCS: 20610; 99213

== ENCOUNTER → 2024-09-27 08:43 | Outpatient (BNVA) | payer MEDICARE, SELFPAY | PROVIDERS: PCP Nurse Practitioner Family; Visit Provider Orthopaedic Surgery | DX: M25.561 Pain in right knee (principal) | CPT/HCPCS: 20610; 99212; J1010; J2003 ==

== ENCOUNTER 2025-01-03 08:30 | Outpatient (AMB) | payer MEDICARE, SELFPAY ==
[2025-01-03 08:41] VITALS: BMI 46.1
--- NOTE | 2025-01-03 08:41 | A.OFFVIS_ITS ---
Vital Signs 01/03/25 08:41 Height 5 ft 2 in Weight 252 lb BMI 46.1 Intake Visit Reasons: Right knee pain and giving way Intake Note: Kiya is a 69 year old woman who presents with complaints of progressively worsening right knee pain and giving way. The patient states that her symptoms have gotten worse over the last few years in spite of continued non operative treatments. She has had multiple cortisone injections as well as viscosupplementation injections. The most recent set of injections gave her minimal relief. She has failed the last 6 weeks of conservative treatment which has included Tylenol, anti-inflammatory medicines, physical therapy exercises and a home exercise program. She states that her right knee will give out several times per day. Most of the pain is along the medial aspect of her knee. The patient states that her right knee pain and mechanical symptoms are now interfering with her activities of daily living and her ability to sleep well through the night. Allergies No Known Allergies Allergy (Verified 01/03/25 08:49) Medication List - Last Reconciled 01/03/25 by Sanya Arias MD albuterol sulfate 90 mcg/actuation inhalation cetirizine 10 mg PO DAILY famotidine 20 mg PO DAILY fluticasone furoate-vilanterol 100-25 mcg/dose (Breo Ellipta) 1 ea inhalation DAILY fluticasone furoate-vilanterol 200-25 mcg/dose (Breo Ellipta) 1 inh inhalation DAILY gabapentin 300 mg PO TID hydrochlorothiazide 25 mg PO DAILY lorazepam 0.5 mg PO BEDTIME PRN losartan 100 mg PO DAILY magnesium oxide 250 mg PO DAILY omeprazole 40 mg PO DAILY trazodone 150 mg PO BEDTIME PFSH Surgical History Hx of lumpectomy Hx of cholecystectomy Hx of section Social History Patient Tobacco Use Status: Never used Tobacco 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al status: unemployed 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 Physical Exam Vital Signs: BMI result Body Mass Index 46.1 Const Other: Well-nourished well-developed very friendly female awake alert and oriented x3 in no acute distress Extrem Other: Right knee examination shows a minimal effusion, mild crepitus with range of motion, tenderness along her medial joint line, positive Stevan's test, no instability Results Reviewed Results Reviewed: Standing full weight-bearing x-rays of the patient's right knee taken previously show mild diffuse joint space narrowing, no acute bony abnormalities Assessment & Plan Assessment & Plan (1) Tear of medial meniscus of right knee: Code(s): S83.241A - Other tear of medial meniscus, current injury, right knee, initial e ncounter Category: Medical Plan Ms. Fragoso presents with progressively worsening right knee pain and mechanical symptoms most likely due to a medial meniscus tear. Thus, I will send the patient for an MRI of her right knee for further evaluation. I also had the patient fitted with a knee brace because of her mechanical symptoms. I do find that the brace is a medical necessity to help prevent future falls. The patient requests that her right knee MRI be performed near her home in [place], [place]. She states that she has difficulty traveling to [facility]. I will contact her by phone once the MRI results are available. Feel free to call me at any time should questions regarding her orthopedic management arise. I spent 21 minutes in reviewing the patient's records and imaging studies, seeing the patient and documenting in the medical record. Orders: Orders MR knee RT wo con 01/04/25 S83.241A - Other tear of medial meniscus, current injury, right knee, initial encounter Coding Level of Care Code Est Pt Level 3 (59139) Complex EM visit Add On G2211 Diagnoses Tear of medial meniscus of right knee S83.241A
== END 2025-01-03 09:05 | disposition home or self-care (01) ==
LOC: HO.HOS 08:31
PROVIDERS: PCP Nurse Practitioner Family; Visit Provider Orthopaedic Surgery
DX: S83.241A Other tear of medial meniscus, current injury, right knee, initial encounter (principal)
CPT/HCPCS: 99213; G2211

== ENCOUNTER → 2025-01-03 08:30 | Outpatient (BNVA) | payer MEDICARE, SELFPAY | PROVIDERS: PCP Nurse Practitioner Family; Visit Provider Orthopaedic Surgery | DX: S83.241D Other tear of medial meniscus, current injury, right knee, subsequent encounter (principal) | CPT/HCPCS: 99212 ==

== ENCOUNTER 2025-03-06 11:26 | Outpatient (AMB) | payer MEDICARE, SELFPAY ==
--- NOTE | 2025-03-06 11:31 | A.OFFVIS_ITS ---
Intake Visit Reasons: Right knee pain and giving way Intake Note: Kiya is a 69 year old woman who presents with complaints of progressively worsening right knee pain and giving way. The patient states that her symptoms have gotten worse over the last few years in spite of continued non operative treatments. She has had multiple cortisone injections as well as viscosupplementation injections. The most recent set of injections gave her minimal relief. She has failed the last 6 weeks of conservative treatment which has included Tylenol, anti-inflammatory medicines, physical therapy exercises and a home exercise program. She states that her right knee will give out several times per day. Most of the pain is along the medial aspect of her knee. The patient states that her right knee pain and mechanical symptoms are now interfering with her activities of daily living and her ability to sleep well th rough the night. Allergies No Known Allergies Allergy (Verified 01/03/25 08:49) Medication List - Last Reconciled 03/06/25 by Sanya Arias MD albuterol sulfate 90 mcg/actuation inhalation cetirizine 10 mg PO DAILY famotidine 20 mg PO DAILY fluticasone furoate-vilanterol 100-25 mcg/dose (Breo Ellipta) 1 ea inhalation DAILY fluticasone furoate-vilanterol 200-25 mcg/dose (Breo Ellipta) 1 inh inhalation DAILY gabapentin 300 mg PO TID hydrochlorothiazide 25 mg PO DAILY lorazepam 0.5 mg PO BEDTIME PRN losartan 100 mg PO DAILY magnesium oxide 250 mg PO DAILY omeprazole 40 mg PO DAILY trazodone 150 mg PO BEDTIME PFSH Surgical History Hx of lumpectomy Hx of cholecystectomy Hx of section Social History Patient Tobacco Use Status: Never used Tobacco 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al status: unemployed 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 Physical Exam Extrem Other: Right knee examination shows a minimal effusion, mild crepitus with range of motion, positive Stevan's test, tenderness over her medial joint line, no instability Results Reviewed Results Reviewed: MRI of the patient's right knee shows mild diffuse degenerative changes as well as a tear of the medial meniscus Assessment & Plan Assessment & Plan (1) Tear of medial meniscus of right knee: Code(s): S83.241A - Other tear of medial meniscus, current injury, right knee, initial encounter Category: Medical Plan Ms. Fragoso presents with progressively worsening right knee pain and mechanical symptoms due to a medial meniscus tear. I had a lengthy discussion with the patient regarding the treatment options. At this point she has failed continued non operative treatments. The risks and benefits of right knee arthroscopic surgery were discussed at length with the patient. The patient wishes to proceed with surgery. Surgery will involve right knee arthroscopic partial medial meniscectomy. She does understand that she may not get 100% relief of her symptoms depending on the severity of her degenerative changes. The patient will be scheduled for next available date. She will follow up as instructed. Feel free to call me at any time should questions regarding her orthopedic management arise. I spent 22 minutes in reviewing the patient's records and imaging studies, seeing the patient and documenting in the medical record. Coding Level of Care Code Est Pt Level 3 (05111) Add On Problem Visit Only Diagnoses Tear of medial meniscus of right knee S83.241A
== END 2025-03-06 11:54 | disposition home or self-care (01) ==
LOC: HO.HOS 11:26
PROVIDERS: PCP Internal Medicine; Visit Provider Orthopaedic Surgery
DX: S83.241A Other tear of medial meniscus, current injury, right knee, initial encounter (principal)
CPT/HCPCS: 99214; G2211

== ENCOUNTER → 2025-03-06 11:26 | Outpatient (BNVA) | payer MEDICARE, SELFPAY | PROVIDERS: PCP Internal Medicine; Visit Provider Orthopaedic Surgery | DX: S83.241A Other tear of medial meniscus, current injury, right knee, initial encounter (principal) | CPT/HCPCS: 99212 ==